=== PATIENT | male | born 1945 | race Caucasian/White ===

== ENCOUNTER → 2017-04-09 | Outpatient (CLI) | payer MEDICARE ==
[~2017-04-09] MED LIST: ASPI325T25 PO; CAR3125T PO; CHOL500021 PO; EPLE25TA PO; FERR1TAB36 PO; FERR27TA2 PO; LISI30TA36 PO; MULT1TAB65 PO; OMEP20CA74 PO; ROSU20TA14 PO; WARF3TAB20 PO
[2017-04-09 16:00] VITALS: BP 122/68
[2017-04-09 16:45] VITALS: BP 125/77
[2017-04-09 17:02] LABS: INR 2.6 (0.7-1.3); Prothrombin Time 31.5 sec (9.0-12.0)
== END | disposition home or self-care (01) ==
LOC: CHF HDHVI 16:15
PROVIDERS: ATTEND Internal Medicine Cardiovascular Disease
DX: I10 Essential (primary) hypertension (principal); R06.02 Shortness of breath; R53.83 Other fatigue
CPT/HCPCS: 85610; 93701; 94620; G0463

== ENCOUNTER → 2017-04-13 | Outpatient (CLI) | payer MEDICARE ==
[~2017-04-13] MED LIST changes: +NITROGLYCERIN 0.4 MG SL TAB SL ONE
[2017-04-13 09:30] VITALS: BP 118/78
[2017-04-13 12:21] LABS: Urine Bilirubin Negative (Negative); Urine Blood Negative /uL (Negative); Urine Color Yellow (Yellow); Urine Glucose Normal (Normal); Urine Ketone Negative (Negative); Urine Nitrite Negative (Negative); Urine Urobilinogen Normal (Negative)
[2017-04-13 12:35] LABS: Basophils # (auto) 0 uL; Basophils % (auto) 0.6 % (0.0-2.0); CONDITION Y; Eosinophils # (auto) 0.2 uL; Hematocrit 39.2 % (41.0-53.0); Hemoglobin 13.1 g/dL (13.5-17.5); Lymphocytes # (auto) 1.6 uL; Lymphocytes % (auto) 25.3 % (10.0-50.0); Mean Corpuscular Hemoglobin 30.2 pg (28.0-32.0); Mean Corpuscular Hgb Conc. 33.4 g/dL (32.0-36.0); Mean Corpuscular Volume 90.4 fL (80.0-100.0); Mean Platelet Volume 7.8 fL (7.4-10.4); Monocytes # (auto) 0.6 uL; Neutrophils # (auto) 3.9 uL; Neutrophils % (auto) 62.1 % (37.0-80.0); Platelet Count (auto) 288 10^3/uL (140-450); Red Cell Distribution Width 14.6 % (11.6-16.0); White Blood Cell 6.3 10^3/uL (4.4-10.8)
[2017-04-13 13:05] LABS: Albumin 3.3 g/dL (3.4-5.0); Alkaline Phosphatase 132 U/L (45-117); Anion Gap 8 (5-15); Aspartate Aminotransferase 27 U/L (15-37); BUN/Creatinine Ratio 16.7; Bilirubin, Direct < 0.1 mg/dL (0-0.2); Bilirubin, Total 0.2 mg/dL (0.2-1.0); Blood Urea Nitrogen 19 mg/dL (7-18); Calcium 9.4 mg/dL (8.5-10.1); Carbon Dioxide 23 mmol/L (21-32); Chloride 107 mmol/L (98-107); Cholesterol 140 mg/dL (< 200); GFR African American 82 mL/min; GFR Non-African American 67 mL/min; Glucose 97 mg/dL (74-106); HDL Cholesterol 59 mg/dL (40-59); LDL Cholesterol 59 mg/dL (< 100); Potassium 4.3 mmol/L (3.5-5.1); Sodium 138 mmol/L (136-145); Total Protein 6.5 g/dL (6.4-8.2); Triglycerides 87 mg/dL (< 150)
== END | disposition home or self-care (01) ==
LOC: LAB 08:22
PROVIDERS: ATTEND Internal Medicine Cardiovascular Disease
DX: I10 Essential (primary) hypertension (principal); E78.00 Pure hypercholesterolemia, unspecified; K74.1 Hepatic sclerosis; E11.9 Type 2 diabetes mellitus without complications; R53.81 Other malaise; E03.9 Hypothyroidism, unspecified; D64.9 Anemia, unspecified; E55.9 Vitamin D deficiency, unspecified; N39.0 Urinary tract infection, site not specified; R97.20 Elevated prostate specific antigen [PSA]
CPT/HCPCS: 36415; 80048; 80061; 80076; 81003; 82306; 83036; 84153; 84403; 84443; 85025; 86703; 86704; 86706; 86708; 86803; 86900; 86901; 87340; G0463

== ENCOUNTER → 2017-04-16 | Outpatient (CLI) | payer MEDICARE ==
[~2017-04-16] MED LIST changes: +CYANOCOBALAMIN (B-12) 1000 MCG/1 ML VIAL IM ONE; +CYANOCOBALAMIN (B-12) 1000 MCG/1 ML VIAL ONE; -NITROGLYCERIN 0.4 MG SL TAB SL ONE
[2017-04-16 08:45] VITALS: BP 108/69
[2017-04-16 12:17] LABS: INR 2.7 (0.7-1.3); Prothrombin Time 32.4 sec (9.0-12.0)
== END | disposition home or self-care (01) ==
LOC: CHF HDHVI 08:04
PROVIDERS: ATTEND Internal Medicine Cardiovascular Disease
DX: I50.9 Heart failure, unspecified (principal); I25.10 Atherosclerotic heart disease of native coronary artery without angina pectoris; Z94.1 Heart transplant status
CPT/HCPCS: 84156; 85610; G0463; J3420; 96372

== ENCOUNTER → 2017-04-24 | Outpatient (CLI) | payer MEDICARE ==
[2017-04-24 15:15] VITALS: BP 107/65
[2017-04-24 17:02] LABS: INR 2.4 (0.7-1.3); Prothrombin Time 29.3 sec (9.0-12.0)
== END | disposition home or self-care (01) ==
LOC: Rad HDHVI 13:40
PROVIDERS: ATTEND Internal Medicine Cardiovascular Disease
DX: I50.23 Acute on chronic systolic (congestive) heart failure (principal); I25.10 Atherosclerotic heart disease of native coronary artery without angina pectoris; D64.9 Anemia, unspecified; I35.0 Nonrheumatic aortic (valve) stenosis; M79.89 Other specified soft tissue disorders
CPT/HCPCS: 85610; 93971; 96372; G0463; J3420

== ENCOUNTER → 2017-05-03 | Outpatient (CLI) | payer MEDICARE ==
[~2017-05-03] VITALS: Ht 177.8 cm; Wt 86.2 kg
[2017-05-03 13:32] VITALS: BP 113/73
[2017-05-03 14:46] VITALS: BP 115/73
== END | disposition home or self-care (01) ==
LOC: Rad HDHVI 12:55
PROVIDERS: ATTEND Internal Medicine Cardiovascular Disease
DX: Z45.02 Encounter for adjustment and management of automatic implantable cardiac defibrillator (principal); I10 Essential (primary) hypertension; I25.2 Old myocardial infarction; E78.00 Pure hypercholesterolemia, unspecified; R06.02 Shortness of breath
CPT/HCPCS: 78452; 93017; 96374; A9500; J3420

== ENCOUNTER → 2017-05-11 | Outpatient (CLI) | payer MEDICARE ==
[~2017-05-11] MED LIST changes: -CYANOCOBALAMIN (B-12) 1000 MCG/1 ML VIAL IM ONE; -CYANOCOBALAMIN (B-12) 1000 MCG/1 ML VIAL ONE
[2017-05-11 16:57] LABS: INR 2.4 (0.7-1.3); Prothrombin Time 28.4 sec (9.0-12.0)
== END | disposition home or self-care (01) ==
LOC: CHF HDHVI 09:30
PROVIDERS: ATTEND Internal Medicine Cardiovascular Disease
DX: I11.0 Hypertensive heart disease with heart failure (principal); I50.9 Heart failure, unspecified; I25.10 Atherosclerotic heart disease of native coronary artery without angina pectoris; F41.9 Anxiety disorder, unspecified; Z95.1 Presence of aortocoronary bypass graft
CPT/HCPCS: 85610; G0463

== ENCOUNTER → 2017-05-15 | Outpatient (CLI) | payer MEDICARE ==
[2017-05-15 12:20] VITALS: BP 110/70
[2017-05-15 16:14] LABS: Basophils # (auto) 0 uL; Basophils % (auto) 0.6 % (0.0-2.0); CONDITION Y; Eosinophils # (auto) 0.2 uL; Hematocrit 40.7 % (41.0-53.0); Hemoglobin 13.6 g/dL (13.5-17.5); Lymphocytes # (auto) 2.2 uL; Lymphocytes % (auto) 28.4 % (10.0-50.0); Mean Corpuscular Hemoglobin 30.1 pg (28.0-32.0); Mean Corpuscular Hgb Conc. 33.4 g/dL (32.0-36.0); Mean Corpuscular Volume 90.2 fL (80.0-100.0); Mean Platelet Volume 7.8 fL (7.4-10.4); Monocytes # (auto) 0.8 uL; Monocytes % (auto) 9.7 % (0.0-12.0); Neutrophils # (auto) 4.6 uL; Neutrophils % (auto) 59.3 % (37.0-80.0); Platelet Count (auto) 311 10^3/uL (140-450); Red Cell Distribution Width 15.5 % (11.6-16.0); White Blood Cell 7.8 10^3/uL (4.4-10.8)
[2017-05-15 16:28] LABS: INR 1.9 (0.9-1.15); Partial Thromboplastin Time 36.7 sec (22.64-33.71)
[2017-05-15 16:36] LABS: Prothrombin Time 20.9 sec (9.37-12.3)
[2017-05-15 16:41] LABS: BUN/Creatinine Ratio 13.9; Calcium 9.2 mg/dL (8.5-10.1); Magnesium 2.5 mg/dL (1.6-2.6); Potassium 4.3 mmol/L (3.5-5.1)
== END | disposition home or self-care (01) ==
LOC: CHF HDHVI 10:30
PROVIDERS: ATTEND Internal Medicine Cardiovascular Disease
DX: I11.0 Hypertensive heart disease with heart failure (principal); I50.9 Heart failure, unspecified; I25.10 Atherosclerotic heart disease of native coronary artery without angina pectoris; E11.9 Type 2 diabetes mellitus without complications; E83.40 Disorders of magnesium metabolism, unspecified; D51.9 Vitamin B12 deficiency anemia, unspecified; D64.9 Anemia, unspecified; R79.1 Abnormal coagulation profile; Z95.1 Presence of aortocoronary bypass graft
CPT/HCPCS: 36415; 80048; 82607; 83036; 83735; 85025; 85610; 85730; 93701; G0463

== ENCOUNTER → 2017-06-27 | Outpatient (CLI) | payer MEDICARE ==
[2017-06-27 10:30] VITALS: BP 104/73
[2017-06-27 12:08] LABS: Potassium 4.2 mmol/L (3.5-5.1); Uric Acid 5.1 mg/dL (3.5-7.2)
[2017-06-27 12:25] LABS: Basophils # (auto) 0.1 uL; Basophils % (auto) 0.7 % (0.0-2.0); Eosinophils # (auto) 0.2 uL; Eosinophils % (auto) 2.1 % (0.0-7.0); Hematocrit 40.5 % (41.0-53.0); Hemoglobin 13.7 g/dL (13.5-17.5); Lymphocytes # (auto) 1.9 uL; Lymphocytes % (auto) 26.1 % (10.0-50.0); Mean Corpuscular Hemoglobin 30.4 pg (28.0-32.0); Mean Corpuscular Hgb Conc. 33.8 g/dL (32.0-36.0); Mean Corpuscular Volume 89.8 fL (80.0-100.0); Mean Platelet Volume 7.3 fL (6.9-10.8); Monocytes # (auto) 0.7 uL; Monocytes % (auto) 9.7 % (0.0-12.0); Neutrophils # (auto) 4.5 uL; Neutrophils % (auto) 61.4 % (37.0-80.0); Nucleated Red Blood Cells % 0.1 %; Platelet Count (auto) 261 10^3/uL (140-450); Red Cell Distribution Width 16.2 % (11.8-14.3); White Blood Cell 7.4 10^3/uL (4.4-10.8)
== END | disposition home or self-care (01) ==
LOC: CHF HDHVI 10:04
PROVIDERS: ATTEND Internal Medicine Cardiovascular Disease
DX: I50.9 Heart failure, unspecified (principal); E87.6 Hypokalemia; R94.4 Abnormal results of kidney function studies; M10.9 Gout, unspecified; D64.9 Anemia, unspecified
CPT/HCPCS: 36415; 82565; 84132; 84520; 84550; 85025; G0463

== ENCOUNTER → 2017-07-30 | Outpatient (CLI) | payer MEDICARE ==
[~2017-07-30] MED LIST changes: +AMIO200T33 PO; +FERR83TA2 PO; +IVAB1.7T PO; +LORA-655 PO
[2017-07-30 09:05] VITALS: BP 91/62
[2017-07-30 09:45] VITALS: BP 108/65
[2017-07-30 12:55] LABS: Basophils # (auto) 0 uL; Basophils % (auto) 0.6 % (0.0-2.0); Eosinophils # (auto) 0.2 uL; Eosinophils % (auto) 2.9 % (0.0-7.0); Hematocrit 40.7 % (41.0-53.0); Hemoglobin 13.6 g/dL (13.5-17.5); Lymphocytes # (auto) 1.3 uL; Lymphocytes % (auto) 16.2 % (10.0-50.0); Mean Corpuscular Hemoglobin 30.4 pg (28.0-32.0); Mean Corpuscular Hgb Conc. 33.3 g/dL (32.0-36.0); Mean Corpuscular Volume 91.3 fL (80.0-100.0); Monocytes # (auto) 0.7 uL; Monocytes % (auto) 8.5 % (0.0-12.0); Neutrophils # (auto) 5.6 uL; Neutrophils % (auto) 71.8 % (37.0-80.0); Nucleated Red Blood Cells % 0.2 %; Platelet Count (auto) 310 10^3/uL (140-450); Red Cell Distribution Width 17.3 % (11.8-14.3); White Blood Cell 7.7 10^3/uL (4.4-10.8)
[2017-07-30 12:59] LABS: BUN/Creatinine Ratio 15.6; Potassium 4.2 mmol/L (3.5-5.1)
[2017-07-30 14:05] LABS: INR 1.39 (0.9-1.15); Partial Thromboplastin Time 33.2 sec (22.64-33.71); Prothrombin Time 15.2 sec (9.37-12.3)
== END | disposition home or self-care (01) ==
LOC: Rad HDHVI 09:11
PROVIDERS: ATTEND Internal Medicine Cardiovascular Disease
DX: Z01.812 Encounter for preprocedural laboratory examination (principal); I11.0 Hypertensive heart disease with heart failure; I50.9 Heart failure, unspecified; I21.9 Acute myocardial infarction, unspecified; E78.00 Pure hypercholesterolemia, unspecified; D64.9 Anemia, unspecified; R79.1 Abnormal coagulation profile; Z95.1 Presence of aortocoronary bypass graft
CPT/HCPCS: 36415; 71020; 80048; 85025; 85610; 85730; 93005; G0463

== ENCOUNTER 2017-08-02 08:01 | Inpatient (IN) | payer MEDICARE ==
[~2017-08-02] VITALS: Ht 177.8 cm; Wt 89.6 kg
[~2017-08-02 08:01] MED LIST changes: -AMIO200T33 PO; -FERR83TA2 PO; -IVAB1.7T PO; -LORA-655 PO
[2017-08-02] MEDS ORDERED: AMIO200T33 PO (08:19)
[2017-08-02] MEDS ORDERED: FERR83TA2 PO (08:19)
[2017-08-02] MEDS ORDERED: LORA-655 PO (08:19)
[2017-08-02] MEDS ORDERED: IVAB1.7T PO (08:19)
[2017-08-02] MEDS ORDERED: IOHEXOL 350 MG/ML 100ML IJ ONE (08:36)
[2017-08-02] MEDS ORDERED: LIDOCAINE 2%HCL (LOCAL ANESTH.) INJ 20ML MDV ONE (08:36)
[2017-08-02] MEDS ORDERED: MIDAZOLAM HCL 1MG/1ML-2 ML VIAL ONE (08:58)
[2017-08-02] MEDS ORDERED: fentaNYL CITRATE 100 MCG/2 ML VL ONE (08:58)
[2017-08-02] MEDS ORDERED: SODIUM CHL 0.9% 50 ML ONE (09:16)
[2017-08-02] MEDS ORDERED: ANGIOMAX 250 MG VIAL IV ONE (09:16)
[2017-08-02] MEDS ORDERED: EPTIFIBATIDE INJ (2MG/ML) 10ML VIAL IV ONE (09:17)
[2017-08-02] MEDS ORDERED: ASPirin 325 MG TAB ONE (10:42)
[2017-08-02] MEDS ORDERED: PRASUGREL HCL 10 MG TAB ONE (10:42)
[2017-08-02] MEDS ORDERED: SODIUM CHLORIDE 0.9% 1,000 ML IV SCH (11:10)
[2017-08-02] MEDS ORDERED: NITROGLYCERIN 0.4 MG SL TAB SL PRN (11:15)
[2017-08-02] MEDS ORDERED: MORPHINE SULFATE 10 MG/ML INJ 1ML SDV IV PRN (11:15)
[2017-08-02] MEDS ORDERED: HYDROcodone-ACET 5/325MG TAB PO PRN (11:15)
[2017-08-02] MEDS ORDERED: ASPirin-EC 325mg tab PO ONE (11:15)
[2017-08-02] MEDS ORDERED: PRASUGREL HCL 10 MG TAB PO ONE (11:15)
[2017-08-02] MEDS ORDERED: ACETAMINOPHEN 500 MG TAB PO PRN (11:15)
[2017-08-02] MEDS ORDERED: MULTIPLE VITAMINS W/ MINERALS TAB PO ONE (11:45)
[2017-08-02] MEDS ORDERED: AMIODARONE HCL 200 MG TAB PO ONE (11:45)
[2017-08-02] MEDS ORDERED: LORazepam 0.5 MG TAB PO ONE (11:45)
[2017-08-02 12:50] VITALS: BP 117/72
[2017-08-02] MEDS ORDERED: INFLUENZA QUAD 2017-2018 0.5 ML SYRG IM ONE (14:15)
[2017-08-02] MEDS: FERROUS SULFATE 325 MG TAB PO SCH ×2 (17:14→22:01)
[2017-08-02 17:15] VITALS: BP 117/74
[2017-08-02 20:00] VITALS: BP 119/69
[2017-08-02] MEDS ORDERED: ATORVASTATIN 20 MG TAB PO SCH (22:00)
[2017-08-02] MEDS: [UNRECOGNIZED DRUG - OTHER] PO SCH (22:00)
[2017-08-02 22:25] VITALS: BP 119/69
[2017-08-03 05:20] VITALS: BP 120/76
[2017-08-03 08:47] VITALS: BP 90/50
[2017-08-03] MEDS: FERROUS SULFATE 325 MG TAB PO SCH (09:55)
[2017-08-03] MEDS: [UNRECOGNIZED DRUG - OTHER] PO SCH (09:56)
[2017-08-03] MEDS ORDERED: PRASUGREL HCL 10 MG TAB PO SCH (10:00)
[2017-08-03] MEDS ORDERED: OMEPRAZOLE 20MG/10ML ORAL SUSP PO SCH (10:00)
[2017-08-03] MEDS ORDERED: MULTIPLE VITAMINS W/ MINERALS TAB PO SCH (10:00)
[2017-08-03] MEDS ORDERED: AMIODARONE HCL 200 MG TAB PO SCH (10:00)
[2017-08-03] MEDS ORDERED: LORazepam 0.5 MG TAB PO SCH (10:00)
== END 2017-08-03 10:38 | disposition home or self-care (01) | DRG 247 ==
LOC: CATH 08:01 → TELE-E-ADS 08:02 → TELE-WESTW 14:44
PROVIDERS: ADMIT Internal Medicine Cardiovascular Disease; ATTEND Internal Medicine Cardiovascular Disease
PROC: 027135Z Dilation of Coronary Artery, Two Arteries with Two Drug-eluting Intraluminal Devices, Percutaneous Approach (ICD-10-PCS; principal; 2017-08-02)
PROC: 4A023N7 Measurement of Cardiac Sampling and Pressure, Left Heart, Percutaneous Approach (ICD-10-PCS; 2017-08-02)
PROC: B2121ZZ Fluoroscopy of Single Coronary Artery Bypass Graft using Low Osmolar Contrast (ICD-10-PCS; 2017-08-02)
PROC: B2181ZZ Fluoroscopy of Left Internal Mammary Bypass Graft using Low Osmolar Contrast (ICD-10-PCS; 2017-08-02)
PROC: B2111ZZ Fluoroscopy of Multiple Coronary Arteries using Low Osmolar Contrast (ICD-10-PCS; 2017-08-02)
PROC: B2151ZZ Fluoroscopy of Left Heart using Low Osmolar Contrast (ICD-10-PCS; 2017-08-02)
PROC: B3121ZZ Fluoroscopy of Left Subclavian Artery using Low Osmolar Contrast (ICD-10-PCS; 2017-08-02)
PROC: B41C1ZZ Fluoroscopy of Pelvic Arteries using Low Osmolar Contrast (ICD-10-PCS; 2017-08-02)
DX: I25.10 Atherosclerotic heart disease of native coronary artery without angina pectoris (principal); I25.5 Ischemic cardiomyopathy; Z95.1 Presence of aortocoronary bypass graft; Z95.810 Presence of automatic (implantable) cardiac defibrillator; Z95.5 Presence of coronary angioplasty implant and graft; Z23 Encounter for immunization
CPT/HCPCS: 36225; 36415; 71020; 75736; 80048; 85025; 85610; 85730; 92928; 93005; 93458; 99152; 99153; C1874; G0463; J2250

== ENCOUNTER → 2017-08-27 | Outpatient (CLI) | payer MEDICARE ==
[~2017-08-27] MED LIST changes: +AMIO200T33 PO; -CAR3125T PO; -CHOL500021 PO; +CYANOCOBALAMIN (B-12) 1000 MCG/1 ML VIAL IM ONE; +CYANOCOBALAMIN (B-12) 1000 MCG/1 ML VIAL ONE; +CYANOCOBALAMIN (B-12) 1000 MCG/1 ML VIAL SUBCUT ONE; -FERR1TAB36 PO; -FERR27TA2 PO; +FERR83TA2 PO; +IVAB1.7T PO; -LISI30TA36 PO; +LORA-655 PO; +TESTOSTERONE CYPIONATE 200 MG/ML 1ML VIAL IM ONE
[2017-08-27 08:45] VITALS: BP 103/68
[2017-08-27 10:50] VITALS: BP 118/76
[2017-08-27 12:37] LABS: Basophils # (auto) 0 uL; Basophils % (auto) 0.7 % (0.0-2.0); Eosinophils # (auto) 0.2 uL; Eosinophils % (auto) 3.5 % (0.0-7.0); Hematocrit 39.7 % (41.0-53.0); Hemoglobin 13.2 g/dL (13.5-17.5); Lymphocytes # (auto) 1.5 uL; Lymphocytes % (auto) 22.9 % (10.0-50.0); Mean Corpuscular Hemoglobin 30.3 pg (28.0-32.0); Mean Corpuscular Hgb Conc. 33.3 g/dL (32.0-36.0); Mean Corpuscular Volume 91.1 fL (80.0-100.0); Mean Platelet Volume 6.9 fL (6.9-10.8); Monocytes # (auto) 0.7 uL; Monocytes % (auto) 11.1 % (0.0-12.0); Neutrophils # (auto) 4.1 uL; Neutrophils % (auto) 61.8 % (37.0-80.0); Nucleated Red Blood Cells % 0.1 %; Platelet Count (auto) 235 10^3/uL (140-450); Red Cell Distribution Width 17.1 % (11.8-14.3); White Blood Cell 6.7 10^3/uL (4.4-10.8)
[2017-08-27 13:16] LABS: B-Type Natriuretic Peptide 148.5 pg/mL (0-100)
[2017-08-27 13:55] LABS: Temperature: 21.4 C (20.0-25.0)
[2017-08-27 14:42] LABS: Albumin 3.2 g/dL (3.4-5.0); BUN/Creatinine Ratio 17.9; Bilirubin, Total 0.2 mg/dL (0.2-1.0); Calcium 8.5 mg/dL (8.5-10.1); Potassium 4.2 mmol/L (3.5-5.1); Total Protein 7.3 g/dL (6.4-8.2)
== END | disposition home or self-care (01) ==
LOC: CHF HDHVI 08:39
PROVIDERS: ATTEND Internal Medicine Cardiovascular Disease
DX: I11.0 Hypertensive heart disease with heart failure (principal); I50.9 Heart failure, unspecified; R06.02 Shortness of breath; D51.9 Vitamin B12 deficiency anemia, unspecified; D64.9 Anemia, unspecified; E55.9 Vitamin D deficiency, unspecified
CPT/HCPCS: 36415; 80053; 82306; 82607; 83880; 85025; 93701; 94620; G0463; J1071; J3420

== ENCOUNTER → 2017-09-04 | Outpatient (CLI) | payer MEDICARE ==
[~2017-09-04] MED LIST changes: -CYANOCOBALAMIN (B-12) 1000 MCG/1 ML VIAL IM ONE; -CYANOCOBALAMIN (B-12) 1000 MCG/1 ML VIAL ONE; -CYANOCOBALAMIN (B-12) 1000 MCG/1 ML VIAL SUBCUT ONE
[2017-09-04 09:40] VITALS: BP 97/62
[2017-09-04 10:00] VITALS: BP 110/63
[2017-09-04 14:41] LABS: INR 2.1 (0.7-1.3); Prothrombin Time 25.5 sec (9.0-12.0)
== END | disposition home or self-care (01) ==
LOC: CHF HDHVI 09:35
PROVIDERS: ATTEND Internal Medicine Cardiovascular Disease
DX: I11.0 Hypertensive heart disease with heart failure (principal); I50.9 Heart failure, unspecified; I48.91 Unspecified atrial fibrillation; Z79.01 Long term (current) use of anticoagulants
CPT/HCPCS: 85610; 96372; G0463; J1071

== ENCOUNTER → 2017-09-19 | Outpatient (CLI) | payer MEDICARE ==
[~2017-09-19] MED LIST changes: +CYANOCOBALAMIN (B-12) 1000 MCG/1 ML VIAL IM ONE; +CYANOCOBALAMIN (B-12) 1000 MCG/1 ML VIAL ONE
[2017-09-19 12:00] VITALS: BP 125/83
[2017-09-19 12:18] LABS: INR 3.5 (0.7-1.3); Prothrombin Time 41.9 sec (9.0-12.0)
== END | disposition home or self-care (01) ==
LOC: CHF HDHVI 11:20
PROVIDERS: ATTEND Internal Medicine Cardiovascular Disease
DX: I50.9 Heart failure, unspecified (principal); I25.10 Atherosclerotic heart disease of native coronary artery without angina pectoris; E29.1 Testicular hypofunction; R53.83 Other fatigue; R53.81 Other malaise
CPT/HCPCS: 85610; 96372; G0463; J1071; J3420

== ENCOUNTER → 2017-09-26 | Outpatient (CLI) | payer MEDICARE ==
[~2017-09-26] MED LIST changes: -CYANOCOBALAMIN (B-12) 1000 MCG/1 ML VIAL IM ONE; +CYANOCOBALAMIN (B-12) 1000 MCG/1 ML VIAL SUBCUT ONE
[2017-09-26 10:50] VITALS: BP 112/70
[2017-09-26 12:40] VITALS: BP 103/67
[2017-09-26 14:51] LABS: INR 2.8 (0.7-1.3); Prothrombin Time 33.6 sec (9.0-12.0)
== END | disposition home or self-care (01) ==
LOC: CHF HDHVI 10:57
PROVIDERS: ATTEND Internal Medicine Cardiovascular Disease
DX: I50.9 Heart failure, unspecified (principal); E29.1 Testicular hypofunction; R53.83 Other fatigue
CPT/HCPCS: 85610; 93701; 96372; G0463; J1071; J3420

== ENCOUNTER → 2017-10-10 | Outpatient (CLI) | payer MEDICARE ==
[~2017-10-10] VITALS: Ht 30.5 cm; Wt 0.5 kg
[~2017-10-10] MED LIST changes: -CYANOCOBALAMIN (B-12) 1000 MCG/1 ML VIAL ONE; -CYANOCOBALAMIN (B-12) 1000 MCG/1 ML VIAL SUBCUT ONE; +MULT-569 PO; +PRAS10TA8 PO; +ROSU10TA16 PO; +SACU1TAB PO; +TADA5TAB11 PO; +WARF3TAB22 PO
[2017-10-10 11:00] VITALS: BP 94/56
[2017-10-10 12:00] VITALS: BP 109/65
[2017-10-10 16:43] LABS: Basophils # (auto) 0 uL; Basophils % (auto) 0.7 % (0.0-2.0); Eosinophils # (auto) 0.1 uL; Eosinophils % (auto) 1.6 % (0.0-7.0); Hemoglobin 14.7 g/dL (13.5-17.5); Lymphocytes # (auto) 1.1 uL; Lymphocytes % (auto) 16.6 % (10.0-50.0); Mean Corpuscular Hemoglobin 32.2 pg (28.0-32.0); Mean Corpuscular Hgb Conc. 33.3 g/dL (32.0-36.0); Mean Corpuscular Volume 96.8 fL (80.0-100.0); Monocytes # (auto) 0.9 uL; Monocytes % (auto) 12.7 % (0.0-12.0); Neutrophils # (auto) 4.6 uL; Neutrophils % (auto) 68.4 % (37.0-80.0); Nucleated Red Blood Cells % 0.5 %; Platelet Count (auto) 243 10^3/uL (140-450); Red Blood Cells 4.55 10^6/uL (4.5-5.90); Red Cell Distribution Width 18.5 % (11.8-14.3); White Blood Cell 6.8 10^3/uL (4.4-10.8)
[2017-10-10 16:52] LABS: Albumin 3.4 g/dL (3.4-5.0); BUN/Creatinine Ratio 10.1; Bilirubin, Total 0.3 mg/dL (0.2-1.0); Calcium 8.5 mg/dL (8.5-10.1); Magnesium 2.5 mg/dL (1.6-2.6); Potassium 4.2 mmol/L (3.5-5.1); Total Protein 6.5 g/dL (6.4-8.2)
== END | disposition home or self-care (01) ==
LOC: CHF HDHVI 11:13
PROVIDERS: ATTEND Internal Medicine Cardiovascular Disease
DX: E83.42 Hypomagnesemia (principal); I10 Essential (primary) hypertension; R53.81 Other malaise; D64.9 Anemia, unspecified
CPT/HCPCS: 36415; 80053; 83735; 84403; 85025; 96372; G0463; J1071

== ENCOUNTER → 2017-10-15 | Outpatient (CLI) | payer MEDICARE ==
[~2017-10-15] MED LIST changes: -TESTOSTERONE CYPIONATE 200 MG/ML 1ML VIAL IM ONE
[2017-10-15 12:55] VITALS: BP 119/80
== END | disposition home or self-care (01) ==
LOC: CHF HDHVI 11:55
PROVIDERS: ATTEND Internal Medicine Cardiovascular Disease
DX: I25.10 Atherosclerotic heart disease of native coronary artery without angina pectoris (principal); I50.9 Heart failure, unspecified
CPT/HCPCS: 85610; G0463

== ENCOUNTER → 2017-10-24 | Outpatient (CLI) | payer MEDICARE ==
[~2017-10-24] MED LIST changes: +TESTOSTERONE CYPIONATE 200 MG/ML 1ML VIAL IM ONE
[2017-10-24 14:00] VITALS: BP 100/64
[2017-10-24 15:30] VITALS: BP 97/64
[2017-10-24 17:02] LABS: Free T4 (Free Thyroxine) 0.76 ng/dL (0.89-1.76); Prostate Specific Antigen 2.02 ng/mL (0.0-4.0)
== END | disposition home or self-care (01) ==
LOC: CHF HDHVI 13:41
PROVIDERS: ATTEND Internal Medicine Cardiovascular Disease
DX: I50.9 Heart failure, unspecified (principal); N40.0 Benign prostatic hyperplasia without lower urinary tract symptoms; I27.21 Secondary pulmonary arterial hypertension; E29.1 Testicular hypofunction
CPT/HCPCS: 36415; 84153; 84439; 84443; 93701; 96372; G0463; J1071

== ENCOUNTER → 2017-10-31 | Outpatient (CLI) | payer MEDICARE ==
[~2017-10-31] MED LIST changes: +CYANOCOBALAMIN (B-12) 1000 MCG/1 ML VIAL IM ONE; +CYANOCOBALAMIN (B-12) 1000 MCG/1 ML VIAL ONE; -TESTOSTERONE CYPIONATE 200 MG/ML 1ML VIAL IM ONE
[2017-10-31 14:35] VITALS: BP 108/62
[2017-10-31 15:15] VITALS: BP 105/66
== END | disposition home or self-care (01) ==
LOC: CHF HDHVI 14:41
PROVIDERS: ATTEND Internal Medicine Cardiovascular Disease
DX: I50.9 Heart failure, unspecified (principal); I25.10 Atherosclerotic heart disease of native coronary artery without angina pectoris; I27.21 Secondary pulmonary arterial hypertension; R53.83 Other fatigue
CPT/HCPCS: 85610; 96372; G0463; J3420

== ENCOUNTER → 2017-11-14 | Outpatient (CLI) | payer MEDICARE ==
[~2017-11-14] MED LIST changes: -CYANOCOBALAMIN (B-12) 1000 MCG/1 ML VIAL IM ONE; -CYANOCOBALAMIN (B-12) 1000 MCG/1 ML VIAL ONE; +TESTOSTERONE CYPIONATE 200 MG/ML 1ML VIAL IM ONE
[2017-11-14 14:55] VITALS: BP 95/58
[2017-11-14 15:00] VITALS: BP 112/67
== END | disposition home or self-care (01) ==
LOC: CHF HDHVI 14:30
PROVIDERS: ATTEND Internal Medicine Cardiovascular Disease
DX: I50.9 Heart failure, unspecified (principal); E29.1 Testicular hypofunction; Z79.01 Long term (current) use of anticoagulants
CPT/HCPCS: 85610; 96372; G0463; J1071

== ENCOUNTER → 2017-11-21 | Outpatient (CLI) | payer MEDICARE ==
[~2017-11-21] MED LIST changes: -TESTOSTERONE CYPIONATE 200 MG/ML 1ML VIAL IM ONE
[2017-11-21 12:00] VITALS: BP 111/70
[2017-11-21 12:30] VITALS: BP 107/72
[2017-11-21 16:56] LABS: Calcium 8.8 mg/dL (8.5-10.1); Potassium 4.9 mmol/L (3.5-5.1)
[2017-11-21 17:02] LABS: Basophils # (auto) 0.1 uL; Basophils % (auto) 0.8 % (0.0-2.0); Eosinophils # (auto) 0.1 uL; Eosinophils % (auto) 1.2 % (0.0-7.0); Hematocrit 46.2 % (41.0-53.0); Hemoglobin 15.2 g/dL (13.5-17.5); Lymphocytes # (auto) 1.2 uL; Mean Corpuscular Hemoglobin 31.6 pg (28.0-32.0); Mean Corpuscular Volume 95.8 fL (80.0-100.0); Monocytes # (auto) 0.9 uL; Monocytes % (auto) 12.2 % (0.0-12.0); Neutrophils # (auto) 4.9 uL; Neutrophils % (auto) 68.8 % (37.0-80.0); Nucleated Red Blood Cells % 0.5 %; Platelet Count (auto) 274 10^3/uL (140-450); Red Blood Cells 4.83 10^6/uL (4.5-5.90); Red Cell Distribution Width 16.4 % (11.8-14.3); White Blood Cell 7.1 10^3/uL (4.4-10.8)
[2017-11-21 17:06] LABS: Free T4 (Free Thyroxine) 0.9 ng/dL (0.89-1.76); T3 Total 0.81 ng/mL (0.60-1.81)
== END | disposition home or self-care (01) ==
LOC: CHF HDHVI 12:03
PROVIDERS: ATTEND Internal Medicine Cardiovascular Disease
DX: I48.91 Unspecified atrial fibrillation (principal); D64.9 Anemia, unspecified; I10 Essential (primary) hypertension; E03.9 Hypothyroidism, unspecified
CPT/HCPCS: 36415; 80048; 84439; 84443; 84480; 85025; 85610; G0463

== ENCOUNTER 2017-11-28 08:25 | Inpatient (IN) | payer MEDICARE ==
[~2017-11-28] VITALS: Ht 175.3 cm; Wt 89.5 kg
[~2017-11-28 08:25] MED LIST changes: -MULT-569 PO; -PRAS10TA8 PO; -ROSU10TA16 PO; -SACU1TAB PO; -TADA5TAB11 PO; -WARF3TAB22 PO
[2017-11-28 09:53] LABS: Urine Bacteria NONE SEEN /hpf (None Seen); Urine Blood Negative /uL (Negative); Urine Specific Gravity 1.008 (1.001-1.035); Urine WBC 1 /hpf (0 - 3)
[2017-11-28 10:21] LABS: Basophils # (auto) 0 uL; Basophils % (auto) 0.4 % (0.0-2.0); Eosinophils # (auto) 0.1 uL; Eosinophils % (auto) 0.8 % (0.0-7.0); Hematocrit 47.3 % (41.0-53.0); Hemoglobin 15.5 g/dL (13.5-17.5); Lymphocytes # (auto) 1.3 uL; Lymphocytes % (auto) 15.3 % (10.0-50.0); Mean Corpuscular Hgb Conc. 32.8 g/dL (32.0-36.0); Mean Corpuscular Volume 94.6 fL (80.0-100.0); Monocytes % (auto) 12.4 % (0.0-12.0); Neutrophils # (auto) 5.9 uL; Neutrophils % (auto) 71.1 % (37.0-80.0); Platelet Count (auto) 262 10^3/uL (140-450); Red Cell Distribution Width 16.3 % (11.8-14.3); White Blood Cell 8.4 10^3/uL (4.4-10.8)
[2017-11-28 10:38] LABS: Alanine Aminotransferase 29 U/L (16-61); Albumin 3.6 g/dL (3.4-5.0); Anion Gap 4 (5-15); Aspartate Aminotransferase 21 U/L (15-37); BUN/Creatinine Ratio 12.9; Blood Urea Nitrogen 15 mg/dL (7-18); Calcium 8.4 mg/dL (8.5-10.1); Carbon Dioxide 27 mmol/L (21-32); Chloride 105 mmol/L (98-107); GFR African American 80 mL/min; GFR Non-African American 66 mL/min; Glucose 91 mg/dL (74-106); Potassium 4.2 mmol/L (3.5-5.1); Sodium 136 mmol/L (136-145)
[2017-11-28 10:42] LABS: Alkaline Phosphatase 173 U/L (45-117); Bilirubin, Total 0.4 mg/dL (0.2-1.0); Total Protein 6.9 g/dL (6.4-8.2)
[2017-11-28] MEDS ORDERED: HYDROcodone-ACET 10/325MG TAB PO PRN (17:15)
[2017-11-28] MEDS ORDERED: LORazepam 0.5 MG TAB PO PRN (18:00)
[2017-11-28 19:48] LABS: INR 2.13 (0.9-1.15); Prothrombin Time 23.4 sec (9.37-12.3)
[2017-11-28] MEDS: FERROUS SULFATE 325 MG TAB PO SCH (21:27)
[2017-11-28] MEDS: AMIODARONE HCL 200 MG TAB PO SCH (21:28)
[2017-11-28] MEDS: WARFARIN SODIUM 1 MG TAB PO SCH (21:28)
[2017-11-28 22:00] VITALS: BP 119/75
[2017-11-28 23:03] VITALS: BP 134/69
[2017-11-29] MEDS ORDERED: PRAS10TA8 PO (00:31)
[2017-11-29] MEDS ORDERED: WARF3TAB22 PO (00:31)
[2017-11-29] MEDS ORDERED: TADA5TAB11 PO (00:31)
[2017-11-29] MEDS ORDERED: SACU1TAB PO ×2 (00:31→10:52)
[2017-11-29] MEDS ORDERED: MULT-569 PO (00:31)
[2017-11-29 05:00] VITALS: BP 92/57
[2017-11-29 06:08] LABS: INR 2.22 (0.9-1.15); Partial Thromboplastin Time 40.7 sec (22.64-33.71); Prothrombin Time 24.4 sec (9.37-12.3)
[2017-11-29 08:39] VITALS: BP 118/62
[2017-11-29 08:56] VITALS: BP 119/66
[2017-11-29] MEDS ORDERED: ASPirin 81 mg TAB PO SCH (10:00)
[2017-11-29] MEDS ORDERED: ENOXAPARIN SOD 30 MG/0.3 ML SYRINGE SC SCH (10:00)
[2017-11-29] MEDS ORDERED: OMEPRAZOLE 20MG/10ML ORAL SUSP PO SCH (10:00)
[2017-11-29] MEDS: PRASUGREL HCL 10 MG TAB PO SCH (10:40)
[2017-11-29] MEDS: FERROUS SULFATE 325 MG TAB PO SCH ×2 (10:40→22:11)
[2017-11-29] MEDS: MULTIPLE VITAMIN TAB PO SCH (10:40)
[2017-11-29] MEDS ORDERED: EPLE25TA PO (10:52)
[2017-11-29] MEDS ORDERED: ROSU10TA16 PO (10:52)
[2017-11-29 11:29] VITALS: BP 112/71
[2017-11-29] MEDS: WARFARIN SODIUM 1 MG TAB PO SCH (16:59)
[2017-11-29 17:12] VITALS: BP 139/80
[2017-11-29 21:52] VITALS: BP 98/51
[2017-11-29] MEDS: AMIODARONE HCL 200 MG TAB PO SCH (22:12)
[2017-11-30 05:12] LABS: Basophils # (auto) 0.1 uL; Basophils % (auto) 0.7 % (0.0-2.0); Eosinophils # (auto) 0.1 uL; Eosinophils % (auto) 1.5 % (0.0-7.0); Hematocrit 46.4 % (41.0-53.0); Hemoglobin 15.3 g/dL (13.5-17.5); Lymphocytes # (auto) 0.9 uL; Lymphocytes % (auto) 9.8 % (10.0-50.0); Mean Corpuscular Hemoglobin 31.3 pg (28.0-32.0); Mean Corpuscular Volume 94.8 fL (80.0-100.0); Monocytes % (auto) 11.2 % (0.0-12.0); Neutrophils # (auto) 6.8 uL; Neutrophils % (auto) 76.8 % (37.0-80.0); Nucleated Red Blood Cells % 0.1 %; Platelet Count (auto) 234 10^3/uL (140-450); Red Blood Cells 4.89 10^6/uL (4.5-5.90); Red Cell Distribution Width 16.4 % (11.8-14.3); White Blood Cell 8.8 10^3/uL (4.4-10.8)
[2017-11-30 05:25] LABS: INR 2.11 (0.9-1.15); Partial Thromboplastin Time 39.4 sec (22.64-33.71); Prothrombin Time 23.2 sec (9.37-12.3)
[2017-11-30 05:42] VITALS: BP 94/40
[2017-11-30 09:00] VITALS: BP 105/75
[2017-11-30] MEDS ORDERED: ASPirin 325 MG TAB PO ONE (10:15)
[2017-11-30] MEDS: FERROUS SULFATE 325 MG TAB PO SCH (10:18)
[2017-11-30] MEDS: PRASUGREL HCL 10 MG TAB PO SCH (10:18)
[2017-11-30] MEDS: MULTIPLE VITAMIN TAB PO SCH (10:18)
[2017-11-30 12:00] VITALS: BP 102/65
[2017-11-30 15:00] VITALS: BP 108/60
[2017-11-30 16:32] VITALS: BP 108/60
[2017-11-30 17:19] VITALS: BP 108/60
[2017-12-01] MEDS ORDERED: ASPirin 325 MG TAB PO SCH (10:00)
== END 2017-11-30 17:19 | disposition home or self-care (01) | DRG 536 ==
LOC: EDBD 08:25 → ER 08:25 → OVERFLOW 08:26 → WEST WING 19:38
PROVIDERS: ADMIT Internal Medicine Cardiovascular Disease; ATTEND Internal Medicine Cardiovascular Disease
DX: S32.591A Other specified fracture of right pubis, initial encounter for closed fracture (principal); I11.0 Hypertensive heart disease with heart failure; I50.22 Chronic systolic (congestive) heart failure; I25.10 Atherosclerotic heart disease of native coronary artery without angina pectoris; K21.9 Gastro-esophageal reflux disease without esophagitis; M16.0 Bilateral primary osteoarthritis of hip; I25.5 Ischemic cardiomyopathy; M47.817 Spondylosis without myelopathy or radiculopathy, lumbosacral region; M47.816 Spondylosis without myelopathy or radiculopathy, lumbar region; F41.9 Anxiety disorder, unspecified; W18.39XA Other fall on same level, initial encounter; Z82.49 Family history of ischemic heart disease and other diseases of the circulatory system; Z86.73 Personal history of transient ischemic attack (TIA), and cerebral infarction without residual deficits; Z95.1 Presence of aortocoronary bypass graft; Y93.89 Activity, other specified; Y92.89 Other specified places as the place of occurrence of the external cause; Y99.8 Other external cause status; Z79.899 Other long term (current) drug therapy; Z79.01 Long term (current) use of anticoagulants; Z95.5 Presence of coronary angioplasty implant and graft; Z95.810 Presence of automatic (implantable) cardiac defibrillator
CPT/HCPCS: 36415; 71046; 72192; 80053; 81001; 84484; 85025; 85610; 85730; 93005

== ENCOUNTER → 2018-01-22 | Outpatient (CLI) | payer MEDICARE ==
[~2018-01-22] MED LIST changes: +CYANOCOBALAMIN (B-12) 1000 MCG/1 ML VIAL IM ONE; +CYANOCOBALAMIN (B-12) 1000 MCG/1 ML VIAL ONE; +MAGNESIUM CITRATE SOLUTION 300 ML BTL ONE; +MAGNESIUM CITRATE SOLUTION 300 ML BTL PO ONE; +MULT-569 PO; +PRAS10TA8 PO; +ROSU10TA16 PO; +SACU1TAB PO; +TADA5TAB11 PO; +TESTOSTERONE CYPIONATE 200 MG/ML 1ML VIAL IM ONE; +WARF3TAB22 PO
[2018-01-22 09:00] VITALS: BP_SYST 108; BP_SYST 112; BP_DIAS 70
[2018-01-22 12:12] LABS: Basophils # (auto) 0 uL; Basophils % (auto) 0.8 % (0.0-2.0); Eosinophils # (auto) 0.1 uL; Eosinophils % (auto) 1.2 % (0.0-7.0); Hematocrit 42.8 % (41.0-53.0); Hemoglobin 14.3 g/dL (13.5-17.5); Lymphocytes # (auto) 1.3 uL; Lymphocytes % (auto) 20.5 % (10.0-50.0); Mean Corpuscular Hemoglobin 30.6 pg (28.0-32.0); Mean Corpuscular Hgb Conc. 33.3 g/dL (32.0-36.0); Mean Corpuscular Volume 91.8 fL (80.0-100.0); Monocytes # (auto) 0.9 uL; Monocytes % (auto) 14.1 % (0.0-12.0); Neutrophils % (auto) 63.4 % (37.0-80.0); Nucleated Red Blood Cells % 0.6 %; Platelet Count (auto) 322 10^3/uL (140-450); Red Blood Cells 4.67 10^6/uL (4.5-5.90); Red Cell Distribution Width 15.2 % (11.8-14.3); White Blood Cell 6.3 10^3/uL (4.4-10.8)
[2018-01-22 12:23] LABS: BUN/Creatinine Ratio 13.5; Calcium 9.3 mg/dL (8.5-10.1); Magnesium 2.3 mg/dL (1.6-2.6); Potassium 4.6 mmol/L (3.5-5.1)
[2018-01-22 12:32] LABS: Free T4 (Free Thyroxine) 1.08 ng/dL (0.89-1.76); Prostate Specific Antigen 1.34 ng/mL (0.0-4.0)
== END | disposition home or self-care (01) ==
LOC: CHF HDHVI 08:08
PROVIDERS: ATTEND Internal Medicine Cardiovascular Disease
DX: E29.1 Testicular hypofunction (principal); I11.0 Hypertensive heart disease with heart failure; I50.23 Acute on chronic systolic (congestive) heart failure; C61 Malignant neoplasm of prostate; E03.9 Hypothyroidism, unspecified; I25.10 Atherosclerotic heart disease of native coronary artery without angina pectoris; D64.9 Anemia, unspecified; K21.9 Gastro-esophageal reflux disease without esophagitis; Z79.01 Long term (current) use of anticoagulants
CPT/HCPCS: 36415; 80048; 83735; 84153; 84403; 84439; 84443; 85025; 93701; 96372; G0463; J1071

== ENCOUNTER → 2018-01-30 | Outpatient (CLI) | payer MEDICARE ==
[~2018-01-30] MED LIST changes: -CYANOCOBALAMIN (B-12) 1000 MCG/1 ML VIAL IM ONE; -CYANOCOBALAMIN (B-12) 1000 MCG/1 ML VIAL ONE; -MAGNESIUM CITRATE SOLUTION 300 ML BTL ONE; -MAGNESIUM CITRATE SOLUTION 300 ML BTL PO ONE
[2018-01-30 14:45] VITALS: BP 107/67
== END | disposition home or self-care (01) ==
LOC: CHF HDHVI 14:20
PROVIDERS: ATTEND Internal Medicine Cardiovascular Disease
DX: E29.1 Testicular hypofunction (principal); I42.9 Cardiomyopathy, unspecified; I25.10 Atherosclerotic heart disease of native coronary artery without angina pectoris; I11.0 Hypertensive heart disease with heart failure; I50.23 Acute on chronic systolic (congestive) heart failure; E03.9 Hypothyroidism, unspecified; Z95.810 Presence of automatic (implantable) cardiac defibrillator; Z79.01 Long term (current) use of anticoagulants
CPT/HCPCS: 85610; 96372; G0463; J1071

== ENCOUNTER → 2018-02-06 | Outpatient (CLI) | payer MEDICARE ==
[2018-02-06 11:40] VITALS: BP 111/61
[2018-02-06 12:30] VITALS: BP 113/70
[2018-02-06 16:01] LABS: Basophils # (auto) 0 uL; Basophils % (auto) 0.5 % (0.0-2.0); Eosinophils # (auto) 0.2 uL; Eosinophils % (auto) 1.9 % (0.0-7.0); Hematocrit 36.9 % (41.0-53.0); Hemoglobin 12.6 g/dL (13.5-17.5); Lymphocytes # (auto) 1.3 uL; Lymphocytes % (auto) 16.5 % (10.0-50.0); Mean Corpuscular Hemoglobin 31.2 pg (28.0-32.0); Mean Corpuscular Volume 91.8 fL (80.0-100.0); Monocytes # (auto) 0.9 uL; Neutrophils # (auto) 5.4 uL; Neutrophils % (auto) 69.1 % (37.0-80.0); Nucleated Red Blood Cells % 0.2 %; Platelet Count (auto) 306 10^3/uL (140-450); Red Blood Cells 4.02 10^6/uL (4.5-5.90); Red Cell Distribution Width 16.6 % (11.8-14.3); White Blood Cell 7.9 10^3/uL (4.4-10.8)
[2018-02-06 16:07] LABS: Albumin 2.8 g/dL (3.4-5.0); BUN/Creatinine Ratio 9.4; Calcium 8.4 mg/dL (8.5-10.1)
[2018-02-06 16:15] LABS: Bilirubin, Total 0.1 mg/dL (0.2-1.0); Total Protein 6.3 g/dL (6.4-8.2)
== END | disposition home or self-care (01) ==
LOC: CHF HDHVI 11:48
PROVIDERS: ATTEND Internal Medicine Cardiovascular Disease
DX: E29.1 Testicular hypofunction (principal); I11.0 Hypertensive heart disease with heart failure; I50.23 Acute on chronic systolic (congestive) heart failure; E03.9 Hypothyroidism, unspecified; D64.9 Anemia, unspecified; R06.02 Shortness of breath; I25.10 Atherosclerotic heart disease of native coronary artery without angina pectoris; K21.9 Gastro-esophageal reflux disease without esophagitis; Z79.01 Long term (current) use of anticoagulants; Z79.899 Other long term (current) drug therapy
CPT/HCPCS: 36415; 80053; 82306; 83880; 85025; 85610; 94618; 96372; G0463; J1071

== ENCOUNTER → 2018-02-14 | Outpatient (CLI) | payer MEDICARE ==
[~2018-02-14] VITALS: Ht 30.5 cm; Wt 0.5 kg
[2018-02-14 11:00] VITALS: BP 103/67
[2018-02-14 11:25] VITALS: BP 100/76
== END | disposition home or self-care (01) ==
LOC: CHF HDHVI 11:15
PROVIDERS: ATTEND Internal Medicine Cardiovascular Disease
DX: E29.1 Testicular hypofunction (principal); I25.10 Atherosclerotic heart disease of native coronary artery without angina pectoris; I11.0 Hypertensive heart disease with heart failure; I50.23 Acute on chronic systolic (congestive) heart failure; K21.9 Gastro-esophageal reflux disease without esophagitis; E03.9 Hypothyroidism, unspecified; Z95.810 Presence of automatic (implantable) cardiac defibrillator; Z85.46 Personal history of malignant neoplasm of prostate
CPT/HCPCS: 96372; G0463; J1071

== ENCOUNTER → 2018-02-21 | Outpatient (CLI) | payer MEDICARE ==
[~2018-02-21] VITALS: Ht 30.5 cm; Wt 0.5 kg
[2018-02-21 11:00] VITALS: BP 114/77
[2018-02-21 11:35] VITALS: BP 107/68
== END | disposition home or self-care (01) ==
LOC: CHF HDHVI 10:57
PROVIDERS: ATTEND Internal Medicine Cardiovascular Disease
DX: E29.1 Testicular hypofunction (principal); I27.21 Secondary pulmonary arterial hypertension; R53.83 Other fatigue; I11.0 Hypertensive heart disease with heart failure; I50.23 Acute on chronic systolic (congestive) heart failure; I25.10 Atherosclerotic heart disease of native coronary artery without angina pectoris; K21.9 Gastro-esophageal reflux disease without esophagitis; E03.9 Hypothyroidism, unspecified; F41.9 Anxiety disorder, unspecified; I48.91 Unspecified atrial fibrillation; I25.2 Old myocardial infarction; Z95.810 Presence of automatic (implantable) cardiac defibrillator; Z85.46 Personal history of malignant neoplasm of prostate; Z86.73 Personal history of transient ischemic attack (TIA), and cerebral infarction without residual deficits; Z79.01 Long term (current) use of anticoagulants; Z79.899 Other long term (current) drug therapy; Z95.1 Presence of aortocoronary bypass graft; Z98.61 Coronary angioplasty status
CPT/HCPCS: 85610; 93701; 96372; G0463; J1071

== ENCOUNTER → 2018-03-05 | Outpatient (CLI) | payer MEDICARE ==
[2018-03-05 09:00] VITALS: BP 117/74
[2018-03-05 09:40] VITALS: BP 126/74
== END | disposition home or self-care (01) ==
LOC: CHF HDHVI 09:09
PROVIDERS: ATTEND Internal Medicine Cardiovascular Disease
DX: E29.1 Testicular hypofunction (principal); E03.9 Hypothyroidism, unspecified; I11.0 Hypertensive heart disease with heart failure; I50.23 Acute on chronic systolic (congestive) heart failure; I25.10 Atherosclerotic heart disease of native coronary artery without angina pectoris; K21.9 Gastro-esophageal reflux disease without esophagitis; I25.2 Old myocardial infarction; Z98.61 Coronary angioplasty status; Z79.01 Long term (current) use of anticoagulants; Z79.899 Other long term (current) drug therapy; Z95.1 Presence of aortocoronary bypass graft; Z95.810 Presence of automatic (implantable) cardiac defibrillator; Z86.73 Personal history of transient ischemic attack (TIA), and cerebral infarction without residual deficits
CPT/HCPCS: 85610; 96372; G0463; J1071

== ENCOUNTER → 2018-03-14 | Outpatient (CLI) | payer MEDICARE ==
[~2018-03-14] VITALS: Ht 30.5 cm; Wt 0.5 kg
[~2018-03-14] MED LIST changes: +CYANOCOBALAMIN (B-12) 1000 MCG/1 ML VIAL IM ONE; +CYANOCOBALAMIN (B-12) 1000 MCG/1 ML VIAL ONE; -TESTOSTERONE CYPIONATE 200 MG/ML 1ML VIAL IM ONE
[2018-03-14 12:56] VITALS: BP 103/53
[2018-03-14 12:58] VITALS: BP 103/53
== END | disposition home or self-care (01) ==
LOC: Rad HDHVI 12:30
PROVIDERS: ATTEND Internal Medicine Cardiovascular Disease
DX: Z01.818 Encounter for other preprocedural examination (principal); I25.5 Ischemic cardiomyopathy; I11.0 Hypertensive heart disease with heart failure; I50.23 Acute on chronic systolic (congestive) heart failure; E03.9 Hypothyroidism, unspecified; I25.10 Atherosclerotic heart disease of native coronary artery without angina pectoris; K21.9 Gastro-esophageal reflux disease without esophagitis; I25.2 Old myocardial infarction; E78.00 Pure hypercholesterolemia, unspecified; I48.91 Unspecified atrial fibrillation; Z79.01 Long term (current) use of anticoagulants; Z98.61 Coronary angioplasty status; Z95.810 Presence of automatic (implantable) cardiac defibrillator; Z95.1 Presence of aortocoronary bypass graft
CPT/HCPCS: 85610; 93306; 96372; G0463; J3420

== ENCOUNTER → 2018-03-20 | Outpatient (CLI) | payer MEDICARE ==
[~2018-03-20] MED LIST changes: +ALBUTEROL SULF 2.5 MG/0.5ML(0.5%) NEB SOLN ONE; -CYANOCOBALAMIN (B-12) 1000 MCG/1 ML VIAL IM ONE; -CYANOCOBALAMIN (B-12) 1000 MCG/1 ML VIAL ONE
== END | disposition home or self-care (01) ==
LOC: RT 08:29
PROVIDERS: ATTEND Internal Medicine Cardiovascular Disease
DX: I11.0 Hypertensive heart disease with heart failure (principal); I50.9 Heart failure, unspecified; E03.9 Hypothyroidism, unspecified; K21.9 Gastro-esophageal reflux disease without esophagitis; Z85.46 Personal history of malignant neoplasm of prostate; Z94.1 Heart transplant status; I48.91 Unspecified atrial fibrillation
CPT/HCPCS: 94060; 94640; 94727; 94729

== ENCOUNTER → 2018-04-01 | Outpatient (CLI) | payer MEDICARE ==
[~2018-04-01] MED LIST changes: -ALBUTEROL SULF 2.5 MG/0.5ML(0.5%) NEB SOLN ONE; +TESTOSTERONE CYPIONATE 200 MG/ML 1ML VIAL IM ONE
[2018-04-01 14:30] VITALS: BP 131/75
[2018-04-01 14:48] VITALS: BP 131/77
== END | disposition home or self-care (01) ==
LOC: CHF HDHVI 14:18
PROVIDERS: ATTEND Internal Medicine Cardiovascular Disease
DX: E29.1 Testicular hypofunction (principal); I11.0 Hypertensive heart disease with heart failure; I50.23 Acute on chronic systolic (congestive) heart failure; K21.9 Gastro-esophageal reflux disease without esophagitis; E03.9 Hypothyroidism, unspecified; I48.91 Unspecified atrial fibrillation; I25.2 Old myocardial infarction; Z94.1 Heart transplant status; Z98.61 Coronary angioplasty status; Z79.01 Long term (current) use of anticoagulants; Z95.810 Presence of automatic (implantable) cardiac defibrillator
CPT/HCPCS: 85610; 96372; G0463; J1071

== ENCOUNTER → 2018-04-30 | Outpatient (CLI) | payer MEDICARE ==
[~2018-04-30] MED LIST changes: -TESTOSTERONE CYPIONATE 200 MG/ML 1ML VIAL IM ONE
[2018-04-30 11:00] VITALS: BP 120/78
[2018-05-01 18:03] LABS: Protein, Urine 6.7 mg/dL (0.0-11.9)
[2018-05-01 18:18] LABS: 24 Hr. Total Protein, Urine 140.7 mg/24 Hr (<149.1)
[2018-05-02 09:33] LABS: Hepatitis B Surface Antibody Negative
[2018-05-02 10:05] LABS: Hepatitis A Total Antibody Negative
[2018-05-02 10:19] LABS: Hepatitis C Antibody Negative (Negative)
[2018-05-02 10:20] LABS: Hepatitis B Core Total AB Negative; Hepatitis B Surface Antigen Negative (Negative)
== END | disposition home or self-care (01) ==
LOC: CHF HDHVI 10:17
PROVIDERS: ATTEND Internal Medicine Cardiovascular Disease
DX: Z01.812 Encounter for preprocedural laboratory examination (principal); E29.1 Testicular hypofunction; I11.0 Hypertensive heart disease with heart failure; I50.9 Heart failure, unspecified; K21.9 Gastro-esophageal reflux disease without esophagitis; Z94.1 Heart transplant status; Z79.82 Long term (current) use of aspirin; Z20.6 Contact with and (suspected) exposure to human immunodeficiency virus [HIV]
CPT/HCPCS: 36415; 84156; 84403; 85610; 86703; 86704; 86706; 86708; 86803; 86900; 86901; 87340; G0463

== ENCOUNTER → 2018-05-09 | Outpatient (CLI) | payer MEDICARE ==
[~2018-05-09] VITALS: Ht 30.5 cm; Wt 84.6 kg
[~2018-05-09] MED LIST changes: +CYANOCOBALAMIN (B-12) 1000 MCG/1 ML VIAL IM ONE; +CYANOCOBALAMIN (B-12) 1000 MCG/1 ML VIAL ONE
[2018-05-09 08:43] VITALS: BP 104/67
== END | disposition home or self-care (01) ==
LOC: CHF HDHVI 08:00
PROVIDERS: ATTEND Internal Medicine Cardiovascular Disease
DX: E29.1 Testicular hypofunction (principal); I11.0 Hypertensive heart disease with heart failure; I50.23 Acute on chronic systolic (congestive) heart failure; R53.1 Weakness; I25.10 Atherosclerotic heart disease of native coronary artery without angina pectoris; E03.9 Hypothyroidism, unspecified; I25.2 Old myocardial infarction; I25.5 Ischemic cardiomyopathy; I70.0 Atherosclerosis of aorta; I48.91 Unspecified atrial fibrillation; K21.9 Gastro-esophageal reflux disease without esophagitis; Z79.82 Long term (current) use of aspirin; Z79.01 Long term (current) use of anticoagulants; Z79.899 Other long term (current) drug therapy; Z95.810 Presence of automatic (implantable) cardiac defibrillator; Z95.1 Presence of aortocoronary bypass graft; Z85.46 Personal history of malignant neoplasm of prostate; Z98.61 Coronary angioplasty status
CPT/HCPCS: 36415; 84403; 85610; 96372; G0463; J3420

== ENCOUNTER → 2018-05-16 | Outpatient (CLI) | payer MEDICARE ==
[~2018-05-16] MED LIST changes: -CYANOCOBALAMIN (B-12) 1000 MCG/1 ML VIAL IM ONE; -CYANOCOBALAMIN (B-12) 1000 MCG/1 ML VIAL ONE
[2018-05-16 10:00] VITALS: BP 118/72
[2018-05-16 10:33] VITALS: BP 105/68
== END | disposition home or self-care (01) ==
LOC: CHF HDHVI 09:41
PROVIDERS: ATTEND Internal Medicine Cardiovascular Disease
DX: C61 Malignant neoplasm of prostate (principal); I11.0 Hypertensive heart disease with heart failure; I50.9 Heart failure, unspecified; K21.9 Gastro-esophageal reflux disease without esophagitis; E03.9 Hypothyroidism, unspecified; E78.00 Pure hypercholesterolemia, unspecified; Z79.01 Long term (current) use of anticoagulants; Z79.899 Other long term (current) drug therapy; Z79.82 Long term (current) use of aspirin
CPT/HCPCS: 36415; 84403; 85610; 93701; G0463

== ENCOUNTER → 2018-05-23 | Outpatient (CLI) | payer MEDICARE ==
[2018-05-23 16:10] VITALS: BP 104/71
[2018-05-23 16:24] VITALS: BP 125/80
== END | disposition home or self-care (01) ==
LOC: CHF HDHVI 16:12
PROVIDERS: ATTEND Internal Medicine Cardiovascular Disease
DX: I25.10 Atherosclerotic heart disease of native coronary artery without angina pectoris (principal); I10 Essential (primary) hypertension; E78.5 Hyperlipidemia, unspecified
CPT/HCPCS: G0463

== ENCOUNTER → 2018-05-30 | Outpatient (CLI) | payer MEDICARE ==
[2018-05-30 11:05] VITALS: BP 106/73
[2018-05-30 11:35] VITALS: BP 109/75
== END | disposition home or self-care (01) ==
LOC: CHF HDHVI 11:03
PROVIDERS: ATTEND Internal Medicine Cardiovascular Disease
DX: I63.9 Cerebral infarction, unspecified (principal); I50.9 Heart failure, unspecified
CPT/HCPCS: 85610; G0463

== ENCOUNTER → 2018-06-06 | Outpatient (CLI) | payer MEDICARE ==
[~2018-06-06] MED LIST changes: +TESTOSTERONE CYPIONATE 200 MG/ML 1ML VIAL IM ONE
[2018-06-06 11:10] VITALS: BP 109/67
[2018-06-06 12:00] VITALS: BP 112/68
== END | disposition home or self-care (01) ==
LOC: CHF HDHVI 11:17
PROVIDERS: ATTEND Internal Medicine Cardiovascular Disease
DX: E29.1 Testicular hypofunction (principal); I27.21 Secondary pulmonary arterial hypertension; I11.0 Hypertensive heart disease with heart failure; I50.23 Acute on chronic systolic (congestive) heart failure; I25.10 Atherosclerotic heart disease of native coronary artery without angina pectoris; K21.9 Gastro-esophageal reflux disease without esophagitis; E03.9 Hypothyroidism, unspecified; I25.2 Old myocardial infarction; I48.91 Unspecified atrial fibrillation; Z79.01 Long term (current) use of anticoagulants; Z79.82 Long term (current) use of aspirin; Z79.899 Other long term (current) drug therapy; Z85.46 Personal history of malignant neoplasm of prostate; Z98.61 Coronary angioplasty status; Z95.810 Presence of automatic (implantable) cardiac defibrillator; Z95.1 Presence of aortocoronary bypass graft
CPT/HCPCS: 85610; 96372; G0463; J1071

== ENCOUNTER → 2018-06-12 | Outpatient (CLI) | payer MEDICARE ==
[~2018-06-12] MED LIST changes: -TESTOSTERONE CYPIONATE 200 MG/ML 1ML VIAL IM ONE
[2018-06-12 15:40] VITALS: BP 109/62
[2018-06-12 16:15] VITALS: BP 110/71
== END | disposition home or self-care (01) ==
LOC: CHF HDHVI 15:46
PROVIDERS: ATTEND Internal Medicine Cardiovascular Disease
DX: I25.10 Atherosclerotic heart disease of native coronary artery without angina pectoris (principal); I63.9 Cerebral infarction, unspecified; M54.9 Dorsalgia, unspecified; I50.9 Heart failure, unspecified
CPT/HCPCS: 85610; G0463

== ENCOUNTER → 2018-06-13 | Outpatient (CLI) | payer MEDICARE ==
[~2018-06-13] MED LIST changes: +IOHEXOL 350 MG/ML 100ML IJ ONE
[2018-06-13 12:40] VITALS: BP 96/65
[2018-06-13 13:13] VITALS: BP 127/78
== END | disposition home or self-care (01) ==
LOC: Rad HDHVI 12:26
PROVIDERS: ATTEND Internal Medicine Cardiovascular Disease
DX: I51.7 Cardiomegaly (principal); S32.019A Unspecified fracture of first lumbar vertebra, initial encounter for closed fracture; S32.039A Unspecified fracture of third lumbar vertebra, initial encounter for closed fracture; N32.89 Other specified disorders of bladder; N32.3 Diverticulum of bladder; I70.0 Atherosclerosis of aorta; Z95.1 Presence of aortocoronary bypass graft; X58.XXXA Exposure to other specified factors, initial encounter; Y93.89 Activity, other specified; Y92.89 Other specified places as the place of occurrence of the external cause; Y99.8 Other external cause status
CPT/HCPCS: 71260; 74177; 82565; G0463; Q9967

== ENCOUNTER → 2018-07-19 | Outpatient (CLI) | payer MEDICARE ==
[~2018-07-19] MED LIST changes: +CYANOCOBALAMIN (B-12) 1000 MCG/1 ML VIAL IM ONE; +CYANOCOBALAMIN (B-12) 1000 MCG/1 ML VIAL ONE; -IOHEXOL 350 MG/ML 100ML IJ ONE
[2018-07-19 10:00] VITALS: BP 91/54
[2018-07-19 11:20] VITALS: BP 100/66
[2018-07-19 12:32] LABS: Albumin 2.9 g/dL (3.4-5.0); Calcium 8.6 mg/dL (8.5-10.1); Magnesium 2.4 mg/dL (1.6-2.6); Potassium 4.5 mmol/L (3.5-5.1)
[2018-07-19 12:35] LABS: BUN/Creatinine Ratio 16.3; Basophils # (auto) 0 uL; Basophils % (auto) 0.4 % (0.0-2.0); Eosinophils # (auto) 0.1 uL; Hematocrit 43.6 % (41.0-53.0); Hemoglobin 14.6 g/dL (13.5-17.5); Lymphocytes # (auto) 1.3 uL; Lymphocytes % (auto) 15.3 % (10.0-50.0); Mean Corpuscular Hemoglobin 30.9 pg (28.0-32.0); Mean Corpuscular Hgb Conc. 33.6 g/dL (32.0-36.0); Mean Corpuscular Volume 92.1 fL (80.0-100.0); Monocytes # (auto) 0.9 uL; Monocytes % (auto) 10.7 % (0.0-12.0); Neutrophils # (auto) 6.3 uL; Neutrophils % (auto) 72.6 % (37.0-80.0); Platelet Count (auto) 379 10^3/uL (140-450); Red Blood Cells 4.74 10^6/uL (4.5-5.90); Red Cell Distribution Width 16.5 % (11.8-14.3); White Blood Cell 8.7 10^3/uL (4.4-10.8)
[2018-07-19 12:36] LABS: Bilirubin, Total 0.3 mg/dL (0.2-1.0); Total Protein 7.3 g/dL (6.4-8.2)
[2018-07-19 12:44] LABS: INR 1.19 (0.9-1.15); Partial Thromboplastin Time 33.4 sec (23.78-33.04); Prothrombin Time 12.6 sec (9.27-12.13)
== END | disposition home or self-care (01) ==
LOC: CHF HDHVI 10:00
PROVIDERS: ATTEND Internal Medicine Cardiovascular Disease
DX: E83.40 Disorders of magnesium metabolism, unspecified (principal); E03.9 Hypothyroidism, unspecified; R79.1 Abnormal coagulation profile; I50.9 Heart failure, unspecified; D64.9 Anemia, unspecified; I11.0 Hypertensive heart disease with heart failure; I25.2 Old myocardial infarction; I50.23 Acute on chronic systolic (congestive) heart failure; K21.9 Gastro-esophageal reflux disease without esophagitis; Z95.1 Presence of aortocoronary bypass graft; Z79.01 Long term (current) use of anticoagulants; Z95.810 Presence of automatic (implantable) cardiac defibrillator; Z85.46 Personal history of malignant neoplasm of prostate; Z79.82 Long term (current) use of aspirin; Z79.899 Other long term (current) drug therapy; Z98.61 Coronary angioplasty status
CPT/HCPCS: 36415; 80053; 82306; 83735; 83880; 84153; 84154; 84443; 85025; 85610; 85730; 93701; 94618; 96372; G0463; J3420

== ENCOUNTER → 2018-11-04 | Outpatient (CLI) | payer MEDICARE ==
[2018-11-04 13:00] VITALS: BP 109/59
--- NOTE | 2018-11-04 13:00 | NUR ---
IN TO CLINIC FOR REPORT OF HYPERTENSION AT HOME. PT BROUGHT HOME MEASUREMENTS OF BLOOD PRESSURES AND INR CHECKS. PT CONCERN OVER BLOOD PRESSURES. NOTED BLOOD PRESSURE RANGE 100'S -130-S SYSTOLIC AND DIASTOLIC 58-82. DISCUSSED SALT MANAGEMENT AND STRESS AT HOME. PT AGREES THAT STRESS HAS BEEN HIGH AND SALT INTAKE HAS BEEN HIGH ALSO. WILL CONTINUE TO MONITOR BP AT HOME WITH NO CHANGE IN MEDICATION DUE TO BP STILL WNL. PACEMAKER INTERROGATED BY [facility]. TOLERATED WELL. PT REPORTS THAT HIS AICD IS NOT "ENROLLED IN HOME MANAGEMENT". ALSO DEFERRED TO [facility]. FOLLOWUP WITH [facility] ON 11/27 FOR TRANSPLANT EVALUATION. CARDIODYNAMICS AND 6MWT DONE AND REVIEWED BY HONEY GRIMES. BOTH TESTS SHOWED GAINS. Discharge Instructions See e-MAR for any mediations given with this visit. Patient education given on disease process. Patient verbalized understanding. Previous labs reviewed. Patient discharged in stable condition with after care instructions and follow up appointment FOR 1 MONTH. MEDICATION ADMINISTRATION VIT B12 1000 MCG IM TO RIGHT DELTOID AT 1328 AICD/PACER INTERROGATION BY [facility] CARDIODYNAMICS 6MWT
[2018-11-04 13:28] VITALS: BP 109/62
[2018-11-04 16:22] LABS: Basophils # (auto) 0 uL; Basophils % (auto) 0.6 % (0.0-2.0); Eosinophils # (auto) 0.1 uL; Eosinophils % (auto) 1.7 % (0.0-7.0); Hematocrit 42.9 % (41.0-53.0); Hemoglobin 14.3 g/dL (13.5-17.5); Lymphocytes # (auto) 1.7 uL; Lymphocytes % (auto) 20.9 % (10.0-50.0); Mean Corpuscular Hemoglobin 31.9 pg (28.0-32.0); Mean Corpuscular Hgb Conc. 33.3 g/dL (32.0-36.0); Mean Corpuscular Volume 95.9 fL (80.0-100.0); Monocytes % (auto) 12.2 % (0.0-12.0); Neutrophils # (auto) 5.1 uL; Neutrophils % (auto) 64.6 % (37.0-80.0); Nucleated Red Blood Cells % 0.1 %; Platelet Count (auto) 261 10^3/uL (140-450); Red Blood Cells 4.48 10^6/uL (4.5-5.90); White Blood Cell 7.9 10^3/uL (4.4-10.8)
[2018-11-04 16:27] LABS: Calcium 8.8 mg/dL (8.5-10.1); Potassium 4.5 mmol/L (3.5-5.1)
[2018-11-04 16:30] LABS: BUN/Creatinine Ratio 24.6; Magnesium 2.6 mg/dL (1.6-2.6)
== END | disposition home or self-care (01) ==
LOC: CHF HDHVI 11:22
PROVIDERS: ATTEND Internal Medicine Cardiovascular Disease
DX: D64.9 Anemia, unspecified (principal); I11.0 Hypertensive heart disease with heart failure; I10 Essential (primary) hypertension; I25.10 Atherosclerotic heart disease of native coronary artery without angina pectoris; E83.40 Disorders of magnesium metabolism, unspecified; E11.9 Type 2 diabetes mellitus without complications; I50.22 Chronic systolic (congestive) heart failure; K21.9 Gastro-esophageal reflux disease without esophagitis; E03.9 Hypothyroidism, unspecified; I25.2 Old myocardial infarction; I27.21 Secondary pulmonary arterial hypertension; E78.5 Hyperlipidemia, unspecified; E78.00 Pure hypercholesterolemia, unspecified; M16.0 Bilateral primary osteoarthritis of hip; M10.9 Gout, unspecified; K74.1 Hepatic sclerosis; I69.354 Hemiplegia and hemiparesis following cerebral infarction affecting left non-dominant side; Z98.61 Coronary angioplasty status; Z79.01 Long term (current) use of anticoagulants; Z79.82 Long term (current) use of aspirin; Z79.899 Other long term (current) drug therapy; Z95.810 Presence of automatic (implantable) cardiac defibrillator; Z95.1 Presence of aortocoronary bypass graft; Z85.46 Personal history of malignant neoplasm of prostate; Z94.1 Heart transplant status
CPT/HCPCS: 36415; 80048; 82306; 83036; 83735; 85025; 96372; G0463; J3420

== ENCOUNTER → 2018-11-19 | Outpatient (CLI) | payer MEDICARE ==
[~2018-11-19] MED LIST changes: -CYANOCOBALAMIN (B-12) 1000 MCG/1 ML VIAL IM ONE; -CYANOCOBALAMIN (B-12) 1000 MCG/1 ML VIAL ONE; +LEVO100T8 PO; +SACU1TAB7 PO
[2018-11-19 10:51] VITALS: BP 100/60
[2018-11-19 11:12] VITALS: BP 115/73
--- NOTE | 2018-11-19 11:12 | NUR ---
Pre-Op Discharge Summary: See e-MAR for any medications given for this visit. Pre-op orders received and carried out per MD of EKG, LABS and chest xrays. Patient given a copy of EKG with instructions to go to [facility] out patient for further follow up care.
[2018-11-19 11:55] LABS: Basophils # (auto) 0.1 uL; Basophils % (auto) 0.9 % (0.0-2.0); Eosinophils # (auto) 0.2 uL; Hematocrit 42.1 % (41.0-53.0); Hemoglobin 13.8 g/dL (13.5-17.5); Lymphocytes # (auto) 1.3 uL; Lymphocytes % (auto) 21.7 % (10.0-50.0); Mean Corpuscular Hemoglobin 31.7 pg (28.0-32.0); Mean Corpuscular Hgb Conc. 32.9 g/dL (32.0-36.0); Mean Corpuscular Volume 96.2 fL (80.0-100.0); Monocytes # (auto) 0.5 uL; Monocytes % (auto) 8.9 % (0.0-12.0); Neutrophils % (auto) 65.5 % (37.0-80.0); Platelet Count (auto) 283 10^3/uL (140-450); Red Blood Cells 4.37 10^6/uL (4.5-5.90); Red Cell Distribution Width 14.9 % (11.8-14.3); White Blood Cell 6.2 10^3/uL (4.4-10.8)
[2018-11-19 12:04] LABS: INR 1.12 (0.9-1.15); Partial Thromboplastin Time 30.3 sec (23.78-33.04); Prothrombin Time 11.9 sec (9.27-12.13)
[2018-11-19 12:07] LABS: Potassium 4.3 mmol/L (3.5-5.1)
[2018-11-19 12:09] LABS: BUN/Creatinine Ratio 21.7
== END | disposition home or self-care (01) ==
LOC: Rad HDHVI 10:07
PROVIDERS: ATTEND Internal Medicine Cardiovascular Disease
DX: Z01.818 Encounter for other preprocedural examination (principal); I10 Essential (primary) hypertension; D64.9 Anemia, unspecified; R79.1 Abnormal coagulation profile
CPT/HCPCS: 36415; 80048; 85025; 85610; 85730; 93005; G0463

== ENCOUNTER 2018-11-21 10:06 | Day surgery (SDC) | payer MEDICARE ==
[~2018-11-21] VITALS: Ht 177.8 cm; Wt 86.2 kg
[~2018-11-21 10:06] MED LIST changes: -FERR83TA2 PO; -LORA-655 PO; -ROSU10TA16 PO; -SACU1TAB PO; -WARF3TAB22 PO
[2018-11-21] MEDS ORDERED: ceFAZolin 1GM/50ML 50 ML IV ONE (10:47)
[2018-11-21] MEDS ORDERED: LIDOCAINE 2%HCL (LOCAL ANESTH.) INJ 20ML MDV ONE (12:38)
[2018-11-21] MEDS ORDERED: fentaNYL CITRATE 100 MCG/2 ML VL ONE (12:43)
[2018-11-21] MEDS ORDERED: VANCOMYCIN HCL 1000 MG VL ONE (12:43)
[2018-11-21] MEDS ORDERED: MIDAZOLAM HCL 1MG/1ML-2 ML VIAL ONE (12:43)
[2018-11-21] MEDS ORDERED: VANCOMYCIN 1GM/250ML 250 ML IV ONE (12:43)
[2018-11-21] MEDS ORDERED: ceFAZolin 1GM VL ONE (13:22)
== END 2018-11-21 15:30 | disposition home or self-care (01) ==
LOC: CATH 10:06
PROVIDERS: ATTEND Internal Medicine Cardiovascular Disease
DX: Z45.010 Encounter for checking and testing of cardiac pacemaker pulse generator [battery] (principal); I25.5 Ischemic cardiomyopathy; E78.5 Hyperlipidemia, unspecified; I25.2 Old myocardial infarction; I11.0 Hypertensive heart disease with heart failure; Z95.5 Presence of coronary angioplasty implant and graft; Z82.49 Family history of ischemic heart disease and other diseases of the circulatory system; Z86.73 Personal history of transient ischemic attack (TIA), and cerebral infarction without residual deficits; Z95.1 Presence of aortocoronary bypass graft; Z79.82 Long term (current) use of aspirin; Z79.899 Other long term (current) drug therapy
CPT/HCPCS: 33264; C1882; J0690; J2250; J3010; J3370; J3590; J7030; 99152; 99153

== ENCOUNTER → 2018-12-05 | Outpatient (CLI) | payer MEDICARE ==
[2018-12-05 12:15] VITALS: BP_SYST 100; BP_SYST 99; BP_DIAS 60; BP_DIAS 67
--- NOTE | 2018-12-05 12:15 | NUR ---
CHF AND COUMADIN MANAGEMENT. LABS DRAWN AND SENT. WITHOUT DISTRESS OR DISCOMFORT. CARDIODYNAMICS DONE AND REVIEWED. QUESTIONS DENIED. FOLLOWUP WITH PT INR RESULTS TOMMOROW. CONTINUE ON 4.5 MG 2X WEEK AND 3 MG 5 TIMES WEEKLY. MONITOR RESPONSE. Discharge Instructions See e-MAR for any mediations given with this visit. Patient education given on disease process. Patient verbalized understanding. Previous labs reviewed. Patient discharged in stable condition with after care instructions and follow up appointment.
[2018-12-05 16:13] LABS: Cholesterol 167 mg/dL (< 200); HDL Cholesterol 75 mg/dL (40-59); LDL Cholesterol 86 mg/dL (< 100); Triglycerides 57 mg/dL (< 150)
[2018-12-05 16:33] LABS: INR 1.3 (0.9-1.15); Partial Thromboplastin Time 31.8 sec (23.78-33.04); Prothrombin Time 13.7 sec (9.27-12.13)
== END | disposition home or self-care (01) ==
LOC: LAB 10:48
PROVIDERS: ATTEND Internal Medicine Cardiovascular Disease
DX: E78.5 Hyperlipidemia, unspecified (principal); C61 Malignant neoplasm of prostate; R79.1 Abnormal coagulation profile
CPT/HCPCS: 36415; 80061; 84153; 84403; 85610; 85730; 93701; G0463

== ENCOUNTER → 2019-01-01 | Outpatient (CLI) | payer MEDICARE ==
[~2019-01-01] VITALS: Ht 30.5 cm; Wt 0.5 kg
[~2019-01-01] MED LIST changes: +CYANOCOBALAMIN (B-12) 1000 MCG/1 ML VIAL IM ONE; +CYANOCOBALAMIN (B-12) 1000 MCG/1 ML VIAL ONE; +KETOROLAC TROMETH 60MG/2ML VIAL IM ONE; +cefTRIAXone 1GM/50ML D5W 50 ML IV ONE; +cefTRIAXone SOD 1,000 MG VL ONE
[2019-01-01 11:00] VITALS: BP 108/57
--- NOTE | 2019-01-01 11:00 | NUR ---
CHF PT ARRIVED AT [facility] TX/EVAL VIRUS AND COUGH X 3 DAYS. PT ALERT AND ORIENTED X 3 . 0 DISTRESS
[2019-01-01 12:35] VITALS: BP 117/65
--- NOTE | 2019-01-01 12:35 | NUR ---
Discharge Instructions See e-MAR for any mediations given with this visit. Patient education given on disease process. Patient verbalized understanding. Previous labs reviewed. Patient discharged in stable condition with after care instructions and follow up appointment MEDICATIONS 1225 ROCEPHIN 1 GRAM IVP X 1 1232 TORADOL INJECTION 60MG IM RIGHT GLUTE LOT # [id number] EXP 09/26 1230 VITAMIN B12 1000 MCG IM LEFT DELTOID # [id number] 09/26
--- NOTE | 2019-01-15 16:44 | NUR ---
INR RETURNED AT 5.0. CALLED PT AND PT REPORTS HOLDING A DOSE OF COUMADIN LAST NIGHT AND "EATING A CAN OF SPINACH" . INSTRUCTED TO CONTINUE 3MG STARTING TODAY EVERY DAY X 1 WEEK. RECHECK INR IN 1 WEEK. PT REPEATED BACK INSTRUCTIONS. QUESTIONS DENIED.
== END | disposition home or self-care (01) ==
LOC: CHF HDHVI 11:15
PROVIDERS: ATTEND Internal Medicine Cardiovascular Disease
DX: I11.0 Hypertensive heart disease with heart failure (principal); I50.9 Heart failure, unspecified; I25.2 Old myocardial infarction; E78.5 Hyperlipidemia, unspecified; Z85.46 Personal history of malignant neoplasm of prostate; Z79.82 Long term (current) use of aspirin; Z79.899 Other long term (current) drug therapy; Z95.1 Presence of aortocoronary bypass graft; Z86.73 Personal history of transient ischemic attack (TIA), and cerebral infarction without residual deficits; Z95.5 Presence of coronary angioplasty implant and graft
CPT/HCPCS: 96372; 96374; G0463; J0696; J1885; J3420; J7060

== ENCOUNTER → 2019-01-22 | Outpatient (CLI) | payer MEDICARE ==
[~2019-01-22] MED LIST changes: -CYANOCOBALAMIN (B-12) 1000 MCG/1 ML VIAL IM ONE; -CYANOCOBALAMIN (B-12) 1000 MCG/1 ML VIAL ONE; -KETOROLAC TROMETH 60MG/2ML VIAL IM ONE; -cefTRIAXone 1GM/50ML D5W 50 ML IV ONE; -cefTRIAXone SOD 1,000 MG VL ONE
[2019-01-22 11:30] VITALS: BP 109/69
--- NOTE | 2019-01-22 11:30 | NUR ---
CHF ARRIVED AT [facility] CLINIC FOR INR CHECK UP
--- NOTE | 2019-01-22 11:30 | NUR ---
CHF PT ALERT ORIENTED 0 DISTRESS VITAL SIGNS OBTAINED
[2019-01-22 11:42] VITALS: BP 95/61
--- NOTE | 2019-01-22 11:42 | NUR ---
Discharge Instructions See e-MAR for any mediations given with this visit. Patient education given on disease process. Patient verbalized understanding. Previous labs reviewed. Patient discharged in stable condition with after care instructions and follow up appointment.
== END | disposition home or self-care (01) ==
LOC: CHF HDHVI 11:34
PROVIDERS: ATTEND Internal Medicine Cardiovascular Disease
DX: I48.91 Unspecified atrial fibrillation (principal)
CPT/HCPCS: G0463

== ENCOUNTER → 2019-03-21 | Outpatient (CLI) | payer MEDICARE ==
--- NOTE | 2019-03-21 11:00 | NUR ---
PATIENT IN CLINIC FOR MED REC ON MD YOSELIN SIGNED FORM REQUESTED BY PATIENT.
== END | disposition home or self-care (01) ==
LOC: CHF HDHVI 11:02
PROVIDERS: ATTEND Internal Medicine Cardiovascular Disease
DX: E78.5 Hyperlipidemia, unspecified (principal); Z95.5 Presence of coronary angioplasty implant and graft
CPT/HCPCS: G0463

== ENCOUNTER → 2019-04-11 | Outpatient (CLI) | payer MEDICARE ==
[~2019-04-11] VITALS: Ht 33 cm; Wt 90.7 kg
[~2019-04-11] MED LIST changes: +CYANOCOBALAMIN (B-12) 1000 MCG/1 ML VIAL IM ONE; +CYANOCOBALAMIN (B-12) 1000 MCG/1 ML VIAL ONE
[2019-04-11 09:15] VITALS: BP 123/51
[2019-04-11 09:30] VITALS: BP 120/48
[2019-04-11 10:15] VITALS: BP 125/54
[2019-04-11 10:30] VITALS: BP 122/50
[2019-04-11 11:35] VITALS: BP 114/53
[2019-04-11 13:15] VITALS: BP 109/73
--- NOTE | 2019-04-11 13:15 | NUR ---
CHF CLINIC Discharge Instructions See e-MAR for any mediations given with this visit. Patient education given on disease process. Patient verbalized understanding. Previous labs reviewed. Patient discharged in stable condition with after care instructions and follow up appointment. NOTE CARDIODYNAMICS PERFORMED BY SAVANNAH AGUIRRE AND REVIEWED WITH PATIENT BY SAM GRIMES. B12 IM L DELTOID ADMIN BY SAM GRIMES.
[2019-04-11 15:54] LABS: Albumin 3.8 g/dL (3.4-5.0); BUN/Creatinine Ratio 17.9; Calcium 9.1 mg/dL (8.5-10.1); Potassium 4.1 mmol/L (3.5-5.1)
[2019-04-11 15:57] LABS: Bilirubin, Total 0.3 mg/dL (0.2-1.0); Total Protein 7.4 g/dL (6.4-8.2)
[2019-04-11 16:28] LABS: Basophils # (auto) 0.1 uL; Basophils % (auto) 1.3 % (0.0-2.0); Eosinophils # (auto) 0.3 uL; Eosinophils % (auto) 4.6 % (0.0-7.0); Hematocrit 43.4 % (41.0-53.0); Hemoglobin 14.3 g/dL (13.5-17.5); Lymphocytes # (auto) 1.6 uL; Lymphocytes % (auto) 27.5 % (10.0-50.0); Mean Corpuscular Hemoglobin 31.5 pg (28.0-32.0); Mean Corpuscular Volume 95.5 fL (80.0-100.0); Monocytes # (auto) 0.6 uL; Monocytes % (auto) 10.8 % (0.0-12.0); Neutrophils # (auto) 3.2 uL; Neutrophils % (auto) 55.8 % (37.0-80.0); Nucleated Red Blood Cells % 0.1 %; Platelet Count (auto) 206 10^3/uL (140-450); Red Blood Cells 4.54 10^6/uL (4.5-5.90); Red Cell Distribution Width 15.2 % (11.8-14.3); White Blood Cell 5.8 10^3/uL (4.4-10.8)
--- NOTE | 2019-04-11 16:51 | NUR ---
ENTERED ON WRONG PATIENT Addendum: 04/11/19 at 1652 by Carole Dominguez RN RN Amended: Links added.
== END | disposition home or self-care (01) ==
LOC: Rad HDHVI 09:45
PROVIDERS: ATTEND Internal Medicine Cardiovascular Disease
DX: I25.10 Atherosclerotic heart disease of native coronary artery without angina pectoris (principal); I48.91 Unspecified atrial fibrillation; I11.0 Hypertensive heart disease with heart failure; I50.9 Heart failure, unspecified; D64.9 Anemia, unspecified; E29.1 Testicular hypofunction; D51.9 Vitamin B12 deficiency anemia, unspecified; E55.9 Vitamin D deficiency, unspecified; R53.83 Other fatigue
CPT/HCPCS: 36415; 80053; 82306; 82607; 83880; 84403; 85025; 93306; 93701; 96372; G0463; J3420

== ENCOUNTER → 2019-04-16 | Outpatient (CLI) | payer MEDICARE ==
[~2019-04-16] MED LIST changes: -CYANOCOBALAMIN (B-12) 1000 MCG/1 ML VIAL IM ONE; -CYANOCOBALAMIN (B-12) 1000 MCG/1 ML VIAL ONE; +KETOROLAC TROMETH 60MG/2ML VIAL IM ONE; +KETOROLAC TROMETH 60MG/2ML VIAL ONE
[2019-04-16 10:55] VITALS: BP 90/58
--- NOTE | 2019-04-16 10:55 | NUR ---
CHF PT ARRIVED AT THE [facility] CLINIC FOR TX AND FOLLOW UP, A/O X 3 VSS,
--- NOTE | 2019-04-16 11:30 | NUR ---
6 MWT PT TOLERATED WELL UP TO 15 MINUTES FROM LAST TIME.
[2019-04-16 12:07] VITALS: BP 118/65
--- NOTE | 2019-04-16 12:07 | NUR ---
Discharge Instructions See e-MAR for any mediations given with this visit. Patient education given on disease process. Patient verbalized understanding. Previous labs reviewed. Patient discharged in stable condition with after care instructions and follow up appointment. MEDICATIONS TORADOL 60 MG IM X 1 RIGHT GLUTE LOT # [id number] EXP 12/26
== END | disposition home or self-care (01) ==
LOC: CHF HDHVI 11:00
PROVIDERS: ATTEND Internal Medicine Cardiovascular Disease
DX: I11.0 Hypertensive heart disease with heart failure (principal); I50.22 Chronic systolic (congestive) heart failure; G89.29 Other chronic pain; I25.10 Atherosclerotic heart disease of native coronary artery without angina pectoris; I48.91 Unspecified atrial fibrillation
CPT/HCPCS: 94618; 96372; G0463; J1885

== ENCOUNTER → 2019-04-25 | Outpatient (CLI) | payer MEDICARE ==
[~2019-04-25] MED LIST changes: -KETOROLAC TROMETH 60MG/2ML VIAL IM ONE; -KETOROLAC TROMETH 60MG/2ML VIAL ONE
[2019-04-25 12:05] VITALS: BP 101/63
--- NOTE | 2019-04-25 12:05 | NUR ---
REPORTS ONGOING PAIN IN LEFT ANTERIOR CHEST WALL S/P FALL AT HOME APPROXIMATELY ONE WEEK AGO. PT REPORTS THAT HE DID NOT SEEK TREATMENT AT INITIAL INJURY BUT THAT PAIN SEEMS TO BE ONGOING LONGER THAN USUAL. REPORTS ANTERIOR CHEST WALL PAIN WITH STRETCHING LEFT ARM. SENT FOR CXR. Discharge Instructions See e-MAR for any mediations given with this visit. Patient education given on disease process. Patient verbalized understanding. Previous labs reviewed. Patient discharged in stable condition with after care instructions and follow up appointment.
== END | disposition home or self-care (01) ==
LOC: CHF HDHVI 10:57
PROVIDERS: ATTEND Internal Medicine Cardiovascular Disease
DX: M48.56XA Collapsed vertebra, not elsewhere classified, lumbar region, initial encounter for fracture (principal); R07.89 Other chest pain
CPT/HCPCS: 71046; G0463

== ENCOUNTER → 2019-06-16 | Outpatient (CLI) | payer MEDICARE | END | disposition home or self-care (01) | LOC: LAB 13:05 | PROVIDERS: ATTEND Internal Medicine | DX: E03.9 Hypothyroidism, unspecified (principal); I11.0 Hypertensive heart disease with heart failure; I50.9 Heart failure, unspecified | CPT/HCPCS: 36415; 83880; 84132; 84439; 84443 ==

== ENCOUNTER → 2019-07-30 | Outpatient (CLI) | payer MEDICARE ==
[~2019-07-30] MED LIST changes: +CYANOCOBALAMIN (B-12) 1000 MCG/1 ML VIAL IM ONE; +CYANOCOBALAMIN (B-12) 1000 MCG/1 ML VIAL ONE
--- NOTE | 2019-07-30 11:15 | NUR ---
CHF PT ARRIVED AT [facility] FOR TX AND F/U. A/O X 4 0 DISTRESS VSS
[2019-07-30 12:41] VITALS: BP 93/66
--- NOTE | 2019-07-30 12:41 | NUR ---
Discharge Instructions See e-MAR for any mediations given with this visit. Patient education given on disease process. Patient verbalized understanding. Previous labs reviewed. Patient discharged in stable condition with after care instructions and follow up appointment. MEDICATIONS VITAMIN B12 IM
[2019-07-30 15:54] LABS: Basophils # (auto) 0.1 uL; Basophils % (auto) 1.1 % (0.0-2.0); Eosinophils # (auto) 0.2 uL; Eosinophils % (auto) 3.9 % (0.0-7.0); Hematocrit 44.9 % (41.0-53.0); Hemoglobin 14.8 g/dL (13.5-17.5); Lymphocytes % (auto) 33.2 % (10.0-50.0); Mean Corpuscular Volume 97.1 fL (80.0-100.0); Monocytes # (auto) 0.9 uL; Monocytes % (auto) 14.9 % (0.0-12.0); Neutrophils # (auto) 2.8 uL; Neutrophils % (auto) 46.9 % (37.0-80.0); Platelet Count (auto) 218 10^3/uL (140-450); Red Blood Cells 4.63 10^6/uL (4.5-5.90); Red Cell Distribution Width 14.6 % (11.8-14.3)
[2019-07-30 16:07] LABS: Albumin 4.1 g/dL (3.4-5.0); BUN/Creatinine Ratio 16.5; Potassium 4.3 mmol/L (3.5-5.1)
[2019-07-30 16:09] LABS: Bilirubin, Total 0.3 mg/dL (0.2-1.0); Total Protein 7.7 g/dL (6.4-8.2)
[2019-07-30 16:11] LABS: Prostate Specific Antigen 0.38 ng/mL (0.0-4.0)
== END | disposition home or self-care (01) ==
LOC: CHF HDHVI 10:36
PROVIDERS: ATTEND Internal Medicine Cardiovascular Disease
DX: I11.0 Hypertensive heart disease with heart failure (principal); I50.9 Heart failure, unspecified; I27.21 Secondary pulmonary arterial hypertension; K90.9 Intestinal malabsorption, unspecified; C61 Malignant neoplasm of prostate; E29.1 Testicular hypofunction; R53.83 Other fatigue; E03.9 Hypothyroidism, unspecified; Z79.899 Other long term (current) drug therapy
CPT/HCPCS: 36415; 80053; 82306; 82607; 83036; 84153; 84403; 85025; 93701; 94618; 96372; G0463; J3420

== ENCOUNTER → 2019-11-05 | Outpatient (CLI) | payer MEDICARE ==
[~2019-11-05] MED LIST changes: -CYANOCOBALAMIN (B-12) 1000 MCG/1 ML VIAL IM ONE; -CYANOCOBALAMIN (B-12) 1000 MCG/1 ML VIAL ONE
[2019-11-05 09:26] VITALS: BP 105/60
[2019-11-05 10:22] LABS: Basophils # (auto) 0 uL; Basophils % (auto) 0.4 % (0.0-2.0); Eosinophils # (auto) 0.5 uL; Eosinophils % (auto) 4.4 % (0.0-7.0); Hematocrit 41.8 % (41.0-53.0); Hemoglobin 13.9 g/dL (13.5-17.5); Lymphocytes # (auto) 1.4 uL; Lymphocytes % (auto) 13.3 % (10.0-50.0); Mean Corpuscular Hemoglobin 31.6 pg (28.0-32.0); Mean Corpuscular Hgb Conc. 33.3 g/dL (32.0-36.0); Monocytes % (auto) 9.4 % (0.0-12.0); Neutrophils # (auto) 7.6 uL; Neutrophils % (auto) 72.5 % (37.0-80.0); Platelet Count (auto) 231 10^3/uL (140-450); Red Cell Distribution Width 15.2 % (11.8-14.3); White Blood Cell 10.4 10^3/uL (4.4-10.8)
[2019-11-05 10:33] LABS: Albumin 3.5 g/dL (3.4-5.0); Magnesium 2.3 mg/dL (1.6-2.6); Potassium 4.3 mmol/L (3.5-5.1)
[2019-11-05 10:36] LABS: BUN/Creatinine Ratio 21.3; Bilirubin, Total 0.3 mg/dL (0.2-1.0); Total Protein 7.2 g/dL (6.4-8.2)
== END | disposition home or self-care (01) ==
LOC: CHF HDHVI 09:22
PROVIDERS: ATTEND Internal Medicine Cardiovascular Disease
DX: J02.9 Acute pharyngitis, unspecified (principal); R05 Cough; I50.9 Heart failure, unspecified; M43.8X5 Other specified deforming dorsopathies, thoracolumbar region; Z95.810 Presence of automatic (implantable) cardiac defibrillator; M85.80 Other specified disorders of bone density and structure, unspecified site
CPT/HCPCS: 36415; 71046; 80053; 83735; 83880; 85025; G0463

== ENCOUNTER → 2019-11-19 | Outpatient (CLI) | payer MEDICARE | END | disposition home or self-care (01) | LOC: Rad HDHVI 13:10 | PROVIDERS: ATTEND Internal Medicine Cardiovascular Disease | DX: I73.9 Peripheral vascular disease, unspecified (principal) | CPT/HCPCS: 93925 ==

== ENCOUNTER → 2020-02-18 | Outpatient (CLI) | payer MEDICARE ==
[~2020-02-18] VITALS: Ht 177.8 cm; Wt 94.3 kg
== END | disposition home or self-care (01) ==
LOC: Rad HDHVI 13:05
PROVIDERS: ATTEND Internal Medicine Cardiovascular Disease
DX: I11.0 Hypertensive heart disease with heart failure (principal); I50.9 Heart failure, unspecified; R79.1 Abnormal coagulation profile; I25.10 Atherosclerotic heart disease of native coronary artery without angina pectoris; I25.5 Ischemic cardiomyopathy; I25.2 Old myocardial infarction; E78.00 Pure hypercholesterolemia, unspecified; R07.89 Other chest pain; Z95.1 Presence of aortocoronary bypass graft; Z95.0 Presence of cardiac pacemaker; Z82.49 Family history of ischemic heart disease and other diseases of the circulatory system
CPT/HCPCS: 93306

== ENCOUNTER → 2020-06-25 | Outpatient (CLI) | payer MEDICARE ==
[~2020-06-25] MED LIST changes: -MULT-569 PO; +MULT1TAB28 PO
== END | disposition home or self-care (01) ==
LOC: Rad HDHVI 11:07
PROVIDERS: ATTEND Internal Medicine Cardiovascular Disease
DX: R00.2 Palpitations (principal); I25.5 Ischemic cardiomyopathy; Z95.1 Presence of aortocoronary bypass graft
CPT/HCPCS: 93306

== ENCOUNTER → 2020-07-02 | Outpatient (CLI) | payer MEDICARE ==
[2020-07-02 12:37] LABS: Potassium 4.4 mmol/L (3.5-5.1)
[2020-07-02 12:38] LABS: Urine Blood Negative /uL (Negative); Urine Specific Gravity 1.006 (1.001-1.035)
[2020-07-02 12:40] LABS: Basophils # (auto) 0 10 ^3/uL (0-0.2); Basophils % (auto) 0.5 % (0.0-2.0); Eosinophils # (auto) 0.2 10 ^3/uL (0-0.8); Eosinophils % (auto) 2.9 % (0.0-7.0); Hematocrit 45.6 % (41.0-53.0); Hemoglobin 15.7 g/dL (13.5-17.5); Lymphocytes # (auto) 1.7 10 ^3/uL (0.4-5.4); Lymphocytes % (auto) 21.7 % (10.0-50.0); Mean Corpuscular Hemoglobin 32.2 pg (28.0-32.0); Mean Corpuscular Hgb Conc. 34.5 g/dL (32.0-36.0); Mean Corpuscular Volume 93.4 fL (80.0-100.0); Monocytes # (auto) 0.9 10 ^3/uL (0-1.3); Monocytes % (auto) 11.4 % (0.0-12.0); Neutrophils % (auto) 63.5 % (37.0-80.0); Nucleated Red Blood Cells % 0.1 %; Platelet Count (auto) 304 10^3/uL (140-450); Red Blood Cells 4.88 10^6/uL (4.5-5.90); Red Cell Distribution Width 14.8 % (11.8-14.3); White Blood Cell 7.8 10^3/uL (4.4-10.8)
[2020-07-02 12:48] LABS: Free T4 (Free Thyroxine) 1.43 ng/dL (0.89-1.76)
[2020-07-02 12:49] LABS: Albumin 3.8 g/dL (3.4-5.0); BUN/Creatinine Ratio 15.5; Bilirubin, Total 0.4 mg/dL (0.2-1.0); Calcium 9.4 mg/dL (8.5-10.1); Total Protein 7.9 g/dL (6.4-8.2)
[2020-07-02 12:52] LABS: Prostate Specific Antigen 4.56 ng/mL (0.0-4.0)
== END | disposition home or self-care (01) ==
LOC: LAB 08:58
PROVIDERS: ATTEND Internal Medicine Cardiovascular Disease
DX: C61 Malignant neoplasm of prostate (principal); D51.3 Other dietary vitamin B12 deficiency anemia; I10 Essential (primary) hypertension; E11.9 Type 2 diabetes mellitus without complications; E55.9 Vitamin D deficiency, unspecified; D64.9 Anemia, unspecified; R00.2 Palpitations; R53.1 Weakness; R30.0 Dysuria
CPT/HCPCS: 36415; 80053; 80061; 81003; 82306; 82607; 83036; 84153; 84154; 84403; 84439; 84443; 85025

== ENCOUNTER → 2020-07-13 | Outpatient (CLI) | payer MEDICARE ==
[~2020-07-13] VITALS: Ht 177.8 cm; Wt 90.3 kg
== END | disposition home or self-care (01) ==
LOC: Rad HDHVI 08:33
PROVIDERS: ATTEND Internal Medicine Cardiovascular Disease
DX: I50.43 Acute on chronic combined systolic (congestive) and diastolic (congestive) heart failure (principal); I25.10 Atherosclerotic heart disease of native coronary artery without angina pectoris; I11.9 Hypertensive heart disease without heart failure; E78.5 Hyperlipidemia, unspecified; I42.8 Other cardiomyopathies; R07.89 Other chest pain; I25.2 Old myocardial infarction; R06.02 Shortness of breath; Z95.0 Presence of cardiac pacemaker; Z95.1 Presence of aortocoronary bypass graft; Z82.49 Family history of ischemic heart disease and other diseases of the circulatory system
CPT/HCPCS: 78452; 93017; 96374; A9500

== ENCOUNTER → 2020-10-14 | Outpatient (CLI) | payer MEDICARE ==
[2020-10-14 15:45] VITALS: BP 107/69
[2020-10-14 16:30] VITALS: BP 99/68
== END | disposition home or self-care (01) ==
LOC: CHF HDHVI 15:09
PROVIDERS: ATTEND Internal Medicine Cardiovascular Disease
DX: I25.718 Atherosclerosis of autologous vein coronary artery bypass graft(s) with other forms of angina pectoris (principal); I25.5 Ischemic cardiomyopathy; I50.23 Acute on chronic systolic (congestive) heart failure; R06.02 Shortness of breath; J44.9 Chronic obstructive pulmonary disease, unspecified; Z98.61 Coronary angioplasty status
CPT/HCPCS: G0166

== ENCOUNTER → 2020-10-15 | Outpatient (CLI) | payer MEDICARE ==
[2020-10-15 15:29] VITALS: BP 99/66
[2020-10-15 16:07] VITALS: BP 107/71
== END | disposition home or self-care (01) ==
LOC: CHF HDHVI 14:54
PROVIDERS: ATTEND Internal Medicine Cardiovascular Disease
DX: I25.718 Atherosclerosis of autologous vein coronary artery bypass graft(s) with other forms of angina pectoris (principal); I25.5 Ischemic cardiomyopathy; I50.23 Acute on chronic systolic (congestive) heart failure; J44.9 Chronic obstructive pulmonary disease, unspecified; R06.02 Shortness of breath; Z98.61 Coronary angioplasty status
CPT/HCPCS: G0166

== ENCOUNTER → 2020-10-18 | Outpatient (CLI) | payer MEDICARE ==
[2020-10-18 15:45] VITALS: BP 111/67
[2020-10-18 16:40] VITALS: BP 103/68
== END | disposition home or self-care (01) ==
LOC: CHF HDHVI 15:15
PROVIDERS: ATTEND Internal Medicine Cardiovascular Disease
DX: I25.718 Atherosclerosis of autologous vein coronary artery bypass graft(s) with other forms of angina pectoris (principal); I25.5 Ischemic cardiomyopathy; I50.23 Acute on chronic systolic (congestive) heart failure; J44.9 Chronic obstructive pulmonary disease, unspecified; R06.02 Shortness of breath; Z98.61 Coronary angioplasty status
CPT/HCPCS: G0166

== ENCOUNTER → 2020-10-19 | Outpatient (CLI) | payer MEDICARE ==
[2020-10-19 15:39] VITALS: BP 102/64
[2020-10-19 16:21] VITALS: BP 116/72
== END | disposition home or self-care (01) ==
LOC: CHF HDHVI 15:05
PROVIDERS: ATTEND Internal Medicine Cardiovascular Disease
DX: I25.718 Atherosclerosis of autologous vein coronary artery bypass graft(s) with other forms of angina pectoris (principal); I25.5 Ischemic cardiomyopathy; I50.23 Acute on chronic systolic (congestive) heart failure; J44.9 Chronic obstructive pulmonary disease, unspecified; R06.02 Shortness of breath; Z98.61 Coronary angioplasty status
CPT/HCPCS: G0166

== ENCOUNTER → 2020-10-20 | Outpatient (CLI) | payer MEDICARE ==
[2020-10-20 15:31] VITALS: BP 112/66
[2020-10-20 16:14] VITALS: BP 102/67
== END | disposition home or self-care (01) ==
LOC: CHF HDHVI 15:04
PROVIDERS: ATTEND Internal Medicine Cardiovascular Disease
DX: I25.718 Atherosclerosis of autologous vein coronary artery bypass graft(s) with other forms of angina pectoris (principal); I25.5 Ischemic cardiomyopathy; I50.23 Acute on chronic systolic (congestive) heart failure; J44.9 Chronic obstructive pulmonary disease, unspecified; R06.02 Shortness of breath; I42.0 Dilated cardiomyopathy; Z98.61 Coronary angioplasty status
CPT/HCPCS: G0166

== ENCOUNTER → 2020-10-22 | Outpatient (CLI) | payer MEDICARE ==
[2020-10-22 15:58] VITALS: BP 115/67
[2020-10-22 16:33] VITALS: BP 110/69
== END | disposition home or self-care (01) ==
LOC: CHF HDHVI 15:05
PROVIDERS: ATTEND Internal Medicine Cardiovascular Disease
DX: I25.718 Atherosclerosis of autologous vein coronary artery bypass graft(s) with other forms of angina pectoris (principal); I25.5 Ischemic cardiomyopathy; I50.23 Acute on chronic systolic (congestive) heart failure; R06.02 Shortness of breath; J44.9 Chronic obstructive pulmonary disease, unspecified; Z98.61 Coronary angioplasty status
CPT/HCPCS: G0166

== ENCOUNTER → 2020-10-29 | Outpatient (CLI) | payer MEDICARE | END | disposition home or self-care (01) | LOC: Rad HDHVI 08:31 | PROVIDERS: ATTEND Internal Medicine Cardiovascular Disease | DX: R07.81 Pleurodynia (principal); I51.7 Cardiomegaly; Z95.810 Presence of automatic (implantable) cardiac defibrillator; Z87.81 Personal history of (healed) traumatic fracture | CPT/HCPCS: 71100 ==

== ENCOUNTER → 2020-11-17 | Outpatient (CLI) | payer MEDICARE ==
[2020-11-17 15:35] VITALS: BP 85/59
[2020-11-17 16:21] VITALS: BP 104/68
== END | disposition home or self-care (01) ==
LOC: CHF HDHVI 15:16
PROVIDERS: ATTEND Internal Medicine Cardiovascular Disease
DX: I25.718 Atherosclerosis of autologous vein coronary artery bypass graft(s) with other forms of angina pectoris (principal); I25.5 Ischemic cardiomyopathy; I50.23 Acute on chronic systolic (congestive) heart failure; R60.9 Edema, unspecified; R06.02 Shortness of breath; I42.0 Dilated cardiomyopathy; J44.9 Chronic obstructive pulmonary disease, unspecified; Z98.61 Coronary angioplasty status
CPT/HCPCS: G0166

== ENCOUNTER → 2020-11-22 | Outpatient (CLI) | payer MEDICARE ==
[2020-11-22 15:52] VITALS: BP 94/77
[2020-11-22 16:27] VITALS: BP 105/64
== END | disposition home or self-care (01) ==
LOC: CHF HDHVI 15:12
PROVIDERS: ATTEND Internal Medicine Cardiovascular Disease
DX: I25.718 Atherosclerosis of autologous vein coronary artery bypass graft(s) with other forms of angina pectoris (principal); I50.23 Acute on chronic systolic (congestive) heart failure; I25.5 Ischemic cardiomyopathy; J44.9 Chronic obstructive pulmonary disease, unspecified; R06.02 Shortness of breath; Z98.61 Coronary angioplasty status
CPT/HCPCS: G0166

== ENCOUNTER → 2020-11-25 | Outpatient (CLI) | payer MEDICARE ==
[2020-11-25 15:34] VITALS: BP 112/68
[2020-11-25 16:19] VITALS: BP 106/67
== END | disposition home or self-care (01) ==
LOC: CHF HDHVI 15:11
PROVIDERS: ATTEND Internal Medicine Cardiovascular Disease
DX: I25.718 Atherosclerosis of autologous vein coronary artery bypass graft(s) with other forms of angina pectoris (principal); I50.23 Acute on chronic systolic (congestive) heart failure; I25.5 Ischemic cardiomyopathy; J44.9 Chronic obstructive pulmonary disease, unspecified; R06.02 Shortness of breath; Z98.61 Coronary angioplasty status
CPT/HCPCS: G0166

== ENCOUNTER → 2020-11-26 | Outpatient (CLI) | payer MEDICARE ==
[2020-11-26 16:31] VITALS: BP 99/60
[2020-11-26 16:39] VITALS: BP 104/62
== END | disposition home or self-care (01) ==
LOC: CHF HDHVI 15:02
PROVIDERS: ATTEND Internal Medicine Cardiovascular Disease
DX: I25.718 Atherosclerosis of autologous vein coronary artery bypass graft(s) with other forms of angina pectoris (principal); I25.5 Ischemic cardiomyopathy; I50.23 Acute on chronic systolic (congestive) heart failure; J44.9 Chronic obstructive pulmonary disease, unspecified; R06.02 Shortness of breath; Z98.61 Coronary angioplasty status
CPT/HCPCS: G0166

== ENCOUNTER → 2020-11-29 | Outpatient (CLI) | payer MEDICARE ==
[2020-11-29 16:46] VITALS: BP 97/63
[2020-11-29 16:52] VITALS: BP 101/64
== END | disposition home or self-care (01) ==
LOC: CHF HDHVI 15:06
PROVIDERS: ATTEND Internal Medicine Cardiovascular Disease
DX: I25.718 Atherosclerosis of autologous vein coronary artery bypass graft(s) with other forms of angina pectoris (principal); I50.23 Acute on chronic systolic (congestive) heart failure; I25.5 Ischemic cardiomyopathy; R60.9 Edema, unspecified; R06.02 Shortness of breath; I42.0 Dilated cardiomyopathy; J44.9 Chronic obstructive pulmonary disease, unspecified; Z98.61 Coronary angioplasty status
CPT/HCPCS: G0166

== ENCOUNTER → 2020-12-01 | Outpatient (CLI) | payer MEDICARE ==
[2020-12-01 15:25] VITALS: BP 100/61
[2020-12-01 16:14] VITALS: BP 105/61
== END | disposition home or self-care (01) ==
LOC: CHF HDHVI 14:59
PROVIDERS: ATTEND Internal Medicine Cardiovascular Disease
DX: I25.718 Atherosclerosis of autologous vein coronary artery bypass graft(s) with other forms of angina pectoris (principal); I50.23 Acute on chronic systolic (congestive) heart failure; I25.5 Ischemic cardiomyopathy; I42.0 Dilated cardiomyopathy; J44.9 Chronic obstructive pulmonary disease, unspecified; R60.9 Edema, unspecified; R06.02 Shortness of breath; Z98.61 Coronary angioplasty status
CPT/HCPCS: G0166

== ENCOUNTER → 2020-12-02 | Outpatient (CLI) | payer MEDICARE ==
[2020-12-02 15:48] VITALS: BP 105/64
[2020-12-02 16:29] VITALS: BP 111/69
== END | disposition home or self-care (01) ==
LOC: CHF HDHVI 15:02
PROVIDERS: ATTEND Internal Medicine Cardiovascular Disease
DX: I25.718 Atherosclerosis of autologous vein coronary artery bypass graft(s) with other forms of angina pectoris (principal); I25.5 Ischemic cardiomyopathy; I50.23 Acute on chronic systolic (congestive) heart failure; Z98.61 Coronary angioplasty status; R60.9 Edema, unspecified; R06.02 Shortness of breath; I42.0 Dilated cardiomyopathy; J44.9 Chronic obstructive pulmonary disease, unspecified
CPT/HCPCS: G0166

== ENCOUNTER → 2020-12-03 | Outpatient (CLI) | payer MEDICARE ==
[2020-12-03 16:27] VITALS: BP 100/47
[2020-12-03 16:34] VITALS: BP 107/69
== END | disposition home or self-care (01) ==
LOC: CHF HDHVI 15:00
PROVIDERS: ATTEND Internal Medicine Cardiovascular Disease
DX: I25.718 Atherosclerosis of autologous vein coronary artery bypass graft(s) with other forms of angina pectoris (principal); I50.23 Acute on chronic systolic (congestive) heart failure; I25.5 Ischemic cardiomyopathy; R06.02 Shortness of breath; J44.9 Chronic obstructive pulmonary disease, unspecified; Z98.61 Coronary angioplasty status
CPT/HCPCS: G0166

== ENCOUNTER → 2020-12-06 | Outpatient (CLI) | payer MEDICARE ==
[2020-12-06 15:42] VITALS: BP 108/62
[2020-12-06 16:19] VITALS: BP 99/59
== END | disposition home or self-care (01) ==
LOC: CHF HDHVI 15:16
PROVIDERS: ATTEND Internal Medicine Cardiovascular Disease
DX: I25.718 Atherosclerosis of autologous vein coronary artery bypass graft(s) with other forms of angina pectoris (principal); I25.5 Ischemic cardiomyopathy; I50.23 Acute on chronic systolic (congestive) heart failure; J44.9 Chronic obstructive pulmonary disease, unspecified; R06.02 Shortness of breath; Z98.61 Coronary angioplasty status
CPT/HCPCS: G0166

== ENCOUNTER → 2020-12-08 | Outpatient (CLI) | payer MEDICARE ==
[2020-12-08 15:36] VITALS: BP 112/68
[2020-12-08 16:19] VITALS: BP 107/69
== END | disposition home or self-care (01) ==
LOC: CHF HDHVI 14:59
PROVIDERS: ATTEND Internal Medicine Cardiovascular Disease
DX: I25.718 Atherosclerosis of autologous vein coronary artery bypass graft(s) with other forms of angina pectoris (principal); I50.23 Acute on chronic systolic (congestive) heart failure; I25.5 Ischemic cardiomyopathy; R06.02 Shortness of breath; J44.9 Chronic obstructive pulmonary disease, unspecified; Z98.61 Coronary angioplasty status
CPT/HCPCS: G0166

== ENCOUNTER → 2020-12-13 | Outpatient (CLI) | payer MEDICARE ==
[2020-12-13 15:29] VITALS: BP 92/67
[2020-12-13 15:58] VITALS: BP 113/72
== END | disposition home or self-care (01) ==
LOC: Rad HDHVI 13:56
PROVIDERS: ATTEND Internal Medicine Cardiovascular Disease
DX: I25.718 Atherosclerosis of autologous vein coronary artery bypass graft(s) with other forms of angina pectoris (principal); I25.5 Ischemic cardiomyopathy; I50.23 Acute on chronic systolic (congestive) heart failure; R06.02 Shortness of breath; J44.9 Chronic obstructive pulmonary disease, unspecified; I51.7 Cardiomegaly; R07.81 Pleurodynia; Z98.61 Coronary angioplasty status; Z95.0 Presence of cardiac pacemaker
CPT/HCPCS: 71100; G0166

== ENCOUNTER → 2020-12-15 | Outpatient (CLI) | payer MEDICARE ==
[2020-12-15 15:37] VITALS: BP 114/66
[2020-12-15 16:23] VITALS: BP 95/65
== END | disposition home or self-care (01) ==
LOC: CHF HDHVI 15:02
PROVIDERS: ATTEND Internal Medicine Cardiovascular Disease
DX: I25.718 Atherosclerosis of autologous vein coronary artery bypass graft(s) with other forms of angina pectoris (principal); I50.23 Acute on chronic systolic (congestive) heart failure; I25.5 Ischemic cardiomyopathy; J44.9 Chronic obstructive pulmonary disease, unspecified; R06.02 Shortness of breath; Z98.61 Coronary angioplasty status
CPT/HCPCS: G0166

== ENCOUNTER → 2021-03-30 | Outpatient (CLI) | payer MEDICARE ==
[2021-03-30 15:00] LABS: Urine Blood Negative /uL (Negative); Urine Specific Gravity 1.009 (1.001-1.035)
[2021-03-30 15:01] LABS: Basophils # (auto) 0 10 ^3/uL (0-0.2); Basophils % (auto) 0.4 % (0.0-2.0); Eosinophils # (auto) 0 10 ^3/uL (0-0.8); Eosinophils % (auto) 0.2 % (0.0-7.0); Hematocrit 37.9 % (41.0-53.0); Hemoglobin 12.6 g/dL (13.5-17.5); Lymphocytes # (auto) 1.2 10 ^3/uL (0.4-5.4); Lymphocytes % (auto) 9.9 % (10.0-50.0); Mean Corpuscular Hemoglobin 28.9 pg (28.0-32.0); Mean Corpuscular Hgb Conc. 33.2 g/dL (32.0-36.0); Monocytes # (auto) 1.4 10 ^3/uL (0-1.3); Neutrophils # (auto) 9.3 10 ^3/uL (1.6-8.6); Neutrophils % (auto) 77.5 % (37.0-80.0); Platelet Count (auto) 385 10^3/uL (140-450); Red Blood Cells 4.36 10^6/uL (4.5-5.90); Red Cell Distribution Width 19.1 % (11.8-14.3)
[2021-03-30 15:09] LABS: Albumin 3.3 g/dL (3.4-5.0); Calcium 9.3 mg/dL (8.5-10.1); Potassium 4.9 mmol/L (3.5-5.1)
[2021-03-30 15:12] LABS: BUN/Creatinine Ratio 16.2; Bilirubin, Direct 0.2 mg/dL (0-0.2); Bilirubin, Total 0.5 mg/dL (0.2-1.0); Total Protein 7.4 g/dL (6.4-8.2)
== END | disposition home or self-care (01) ==
LOC: Rad HDHVI 12:21
PROVIDERS: ATTEND Internal Medicine Cardiovascular Disease
DX: C61 Malignant neoplasm of prostate (principal); D51.3 Other dietary vitamin B12 deficiency anemia; E11.9 Type 2 diabetes mellitus without complications; E55.9 Vitamin D deficiency, unspecified; D64.9 Anemia, unspecified; R00.2 Palpitations; R53.1 Weakness; R30.0 Dysuria; I11.0 Hypertensive heart disease with heart failure; I50.23 Acute on chronic systolic (congestive) heart failure
CPT/HCPCS: 36415; 80048; 80061; 80076; 81003; 83036; 83880; 84153; 84403; 84443; 85025; 85049

== ENCOUNTER → 2021-04-06 | Outpatient (CLI) | payer MEDICARE | END | disposition home or self-care (01) | LOC: Rad HDHVI 11:05 | PROVIDERS: ATTEND Internal Medicine Cardiovascular Disease | DX: R00.2 Palpitations (principal); R07.89 Other chest pain | CPT/HCPCS: 93306 ==

== ENCOUNTER → 2021-05-04 | Outpatient (CLI) | payer MEDICARE ==
[2021-05-04] VITALS (9 sets, daily range): BP systolic 102–128; BP diastolic 50–77
[~2021-05-04] MED LIST changes: +CYANOCOBALAMIN (B-12) 1000 MCG/1 ML VIAL IM ONE; +CYANOCOBALAMIN (B-12) 1000 MCG/1 ML VIAL ONE; +DOBUTamine 1000MCG/ML 250 ML IV ONE; +FUROSEMIDE 100 MG/10ML VIAL IV ONE; +FUROSEMIDE 40 MG/4 ML VIAL ONE; +POTASSIUM CHL 10 Meq TABLET PO ONE; +POTASSIUM CHL 20 Meq TABLET PO ONE
[2021-05-04 11:42] LABS: Basophils # (auto) 0.1 10 ^3/uL (0-0.2); Basophils % (auto) 0.9 % (0.0-2.0); Eosinophils # (auto) 0.1 10 ^3/uL (0-0.8); Eosinophils % (auto) 1.6 % (0.0-7.0); Hematocrit 38.2 % (41.0-53.0); Hemoglobin 12.7 g/dL (13.5-17.5); Lymphocytes # (auto) 1.6 10 ^3/uL (0.4-5.4); Lymphocytes % (auto) 23.5 % (10.0-50.0); Mean Corpuscular Hemoglobin 28.9 pg (28.0-32.0); Mean Corpuscular Hgb Conc. 33.1 g/dL (32.0-36.0); Mean Corpuscular Volume 87.4 fL (80.0-100.0); Monocytes # (auto) 0.9 10 ^3/uL (0-1.3); Monocytes % (auto) 12.2 % (0.0-12.0); Neutrophils # (auto) 4.3 10 ^3/uL (1.6-8.6); Neutrophils % (auto) 61.8 % (37.0-80.0); Nucleated Red Blood Cells % 0.1 %; Red Blood Cells 4.38 10^6/uL (4.5-5.90); Red Cell Distribution Width 18.9 % (11.8-14.3)
[2021-05-04 11:46] LABS: BUN/Creatinine Ratio 20.7; Calcium 9.1 mg/dL (8.5-10.1); Magnesium 2.3 mg/dL (1.6-2.6); Potassium 4.2 mmol/L (3.5-5.1)
[2021-05-04 13:38] LABS: Albumin 3.3 g/dL (3.4-5.0); Bilirubin, Total 0.2 mg/dL (0.2-1.0); Total Protein 7.1 g/dL (6.4-8.2)
== END | disposition home or self-care (01) ==
LOC: Rad HDHVI 09:07
PROVIDERS: ATTEND Internal Medicine Cardiovascular Disease
DX: I11.0 Hypertensive heart disease with heart failure (principal); I50.23 Acute on chronic systolic (congestive) heart failure; R94.31 Abnormal electrocardiogram [ECG] [EKG]; E11.9 Type 2 diabetes mellitus without complications; I25.10 Atherosclerotic heart disease of native coronary artery without angina pectoris; I25.2 Old myocardial infarction; E78.5 Hyperlipidemia, unspecified; M19.042 Primary osteoarthritis, left hand; R53.83 Other fatigue; Z95.1 Presence of aortocoronary bypass graft; Z85.46 Personal history of malignant neoplasm of prostate; Z79.899 Other long term (current) drug therapy; Z95.810 Presence of automatic (implantable) cardiac defibrillator
CPT/HCPCS: 36415; 71046; 80053; 82306; 82607; 83735; 83880; 85025; 93005; 96365; 96366; 96372; 96375; G0463; J1250; J1940; J3420

== ENCOUNTER → 2021-05-06 | Outpatient (CLI) | payer MEDICARE ==
[~2021-05-06] MED LIST changes: +BACITRACIN TOP OINT 1 UD PKG TOP ONE; +BACITRACIN-POLYMYXIN B TOPICAL OINT UD TOP ONE; -CYANOCOBALAMIN (B-12) 1000 MCG/1 ML VIAL IM ONE; -CYANOCOBALAMIN (B-12) 1000 MCG/1 ML VIAL ONE; -DOBUTamine 1000MCG/ML 250 ML IV ONE; -FUROSEMIDE 100 MG/10ML VIAL IV ONE; -FUROSEMIDE 40 MG/4 ML VIAL ONE; -POTASSIUM CHL 10 Meq TABLET PO ONE; -POTASSIUM CHL 20 Meq TABLET PO ONE
[2021-05-06 12:28] VITALS: BP 97/56
[2021-05-06 13:52] VITALS: BP 97/56
== END | disposition home or self-care (01) ==
LOC: CHF HDHVI 12:48
PROVIDERS: ATTEND Internal Medicine Cardiovascular Disease
DX: M19.042 Primary osteoarthritis, left hand (principal)
CPT/HCPCS: 73130; G0463

== ENCOUNTER → 2021-05-10 | Outpatient (CLI) | payer MEDICARE ==
[2021-05-10] VITALS (9 sets, daily range): BP systolic 94–116; BP diastolic 41–65
[~2021-05-10] MED LIST changes: -BACITRACIN-POLYMYXIN B TOPICAL OINT UD TOP ONE; +DOBUTamine 1000MCG/ML 250 ML IV ONE; +FUROSEMIDE 20 MG/2 ML VIAL IV ONE; +FUROSEMIDE 20 MG/2 ML VIAL ONE; +FUROSEMIDE 40 MG/4 ML VIAL ONE; +POTASSIUM CHL 20 Meq TABLET PO ONE
[2021-05-10 11:31] LABS: Basophils # (auto) 0.1 10 ^3/uL (0-0.2); Basophils % (auto) 0.8 % (0.0-2.0); Eosinophils # (auto) 0.1 10 ^3/uL (0-0.8); Eosinophils % (auto) 1.8 % (0.0-7.0); Hematocrit 36.7 % (41.0-53.0); Hemoglobin 12.4 g/dL (13.5-17.5); Lymphocytes # (auto) 1.7 10 ^3/uL (0.4-5.4); Lymphocytes % (auto) 25.6 % (10.0-50.0); Mean Corpuscular Hemoglobin 29.1 pg (28.0-32.0); Mean Corpuscular Hgb Conc. 33.7 g/dL (32.0-36.0); Mean Corpuscular Volume 86.5 fL (80.0-100.0); Monocytes # (auto) 0.8 10 ^3/uL (0-1.3); Monocytes % (auto) 12.4 % (0.0-12.0); Neutrophils % (auto) 59.4 % (37.0-80.0); Nucleated Red Blood Cells % 0.1 %; Red Blood Cells 4.25 10^6/uL (4.5-5.90); Red Cell Distribution Width 19.2 % (11.8-14.3); White Blood Cell 6.7 10^3/uL (4.4-10.8)
== END | disposition home or self-care (01) ==
LOC: CHF HDHVI 09:01
PROVIDERS: ATTEND Internal Medicine Cardiovascular Disease
DX: I11.0 Hypertensive heart disease with heart failure (principal); I50.23 Acute on chronic systolic (congestive) heart failure; R53.83 Other fatigue; S61.211D Laceration without foreign body of left index finger without damage to nail, subsequent encounter; I25.10 Atherosclerotic heart disease of native coronary artery without angina pectoris; I25.2 Old myocardial infarction; E11.9 Type 2 diabetes mellitus without complications; E78.5 Hyperlipidemia, unspecified; M19.042 Primary osteoarthritis, left hand; Z85.46 Personal history of malignant neoplasm of prostate; Z95.1 Presence of aortocoronary bypass graft; W45.8XXD Other foreign body or object entering through skin, subsequent encounter
CPT/HCPCS: 36415; 82565; 83880; 84132; 84520; 85025; 96365; 96366; 96375; G0463; J1250; J1940

== ENCOUNTER → 2021-05-17 | Outpatient (CLI) | payer MEDICARE ==
[2021-05-17] VITALS (9 sets, daily range): BP systolic 96–118; BP diastolic 45–67
[~2021-05-17] MED LIST changes: -FUROSEMIDE 20 MG/2 ML VIAL IV ONE; -FUROSEMIDE 20 MG/2 ML VIAL ONE; -FUROSEMIDE 40 MG/4 ML VIAL ONE; -POTASSIUM CHL 20 Meq TABLET PO ONE
[2021-05-17 11:36] LABS: Basophils # (auto) 0 10 ^3/uL (0-0.2); Basophils % (auto) 0.7 % (0.0-2.0); Eosinophils # (auto) 0.1 10 ^3/uL (0-0.8); Eosinophils % (auto) 1.7 % (0.0-7.0); Hemoglobin 12.7 g/dL (13.5-17.5); Lymphocytes # (auto) 1.5 10 ^3/uL (0.4-5.4); Lymphocytes % (auto) 23.5 % (10.0-50.0); Mean Corpuscular Hemoglobin 29.2 pg (28.0-32.0); Mean Corpuscular Hgb Conc. 33.4 g/dL (32.0-36.0); Mean Corpuscular Volume 87.4 fL (80.0-100.0); Monocytes # (auto) 0.9 10 ^3/uL (0-1.3); Monocytes % (auto) 14.5 % (0.0-12.0); Neutrophils # (auto) 3.8 10 ^3/uL (1.6-8.6); Neutrophils % (auto) 59.6 % (37.0-80.0); Red Blood Cells 4.35 10^6/uL (4.5-5.90); Red Cell Distribution Width 19.2 % (11.8-14.3); White Blood Cell 6.4 10^3/uL (4.4-10.8)
[2021-05-17 11:44] LABS: BUN/Creatinine Ratio 14.7; Calcium 9.1 mg/dL (8.5-10.1); Magnesium 2.4 mg/dL (1.6-2.6); Potassium 4.4 mmol/L (3.5-5.1)
== END | disposition home or self-care (01) ==
LOC: CHF HDHVI 08:12
PROVIDERS: ATTEND Internal Medicine Cardiovascular Disease
DX: I11.0 Hypertensive heart disease with heart failure (principal); I50.23 Acute on chronic systolic (congestive) heart failure; S61.211D Laceration without foreign body of left index finger without damage to nail, subsequent encounter; I25.10 Atherosclerotic heart disease of native coronary artery without angina pectoris; I25.2 Old myocardial infarction; E78.5 Hyperlipidemia, unspecified; R53.83 Other fatigue; M19.042 Primary osteoarthritis, left hand; Z85.46 Personal history of malignant neoplasm of prostate; Z95.1 Presence of aortocoronary bypass graft; Z95.0 Presence of cardiac pacemaker; W45.8XXD Other foreign body or object entering through skin, subsequent encounter
CPT/HCPCS: 36415; 80048; 83735; 83880; 85025; 96365; 96366; G0463; J1250

== ENCOUNTER → 2021-05-24 | Outpatient (CLI) | payer MEDICARE ==
[2021-05-24] VITALS (9 sets, daily range): BP systolic 93–114; BP diastolic 57–66
[~2021-05-24] MED LIST changes: -BACITRACIN TOP OINT 1 UD PKG TOP ONE
[2021-05-24 12:10] LABS: Potassium 4.8 mmol/L (3.5-5.1)
[2021-05-24 12:28] LABS: Albumin 3.2 g/dL (3.4-5.0); BUN/Creatinine Ratio 16.5; Bilirubin, Total 0.3 mg/dL (0.2-1.0); Calcium 9.3 mg/dL (8.5-10.1); Total Protein 7.4 g/dL (6.4-8.2)
== END | disposition home or self-care (01) ==
LOC: CHF HDHVI 09:12
PROVIDERS: ATTEND Internal Medicine Cardiovascular Disease
DX: I11.0 Hypertensive heart disease with heart failure (principal); I50.23 Acute on chronic systolic (congestive) heart failure; C61 Malignant neoplasm of prostate; I25.10 Atherosclerotic heart disease of native coronary artery without angina pectoris; I25.2 Old myocardial infarction; E78.5 Hyperlipidemia, unspecified; E11.9 Type 2 diabetes mellitus without complications; M19.042 Primary osteoarthritis, left hand; Z79.899 Other long term (current) drug therapy; Z95.810 Presence of automatic (implantable) cardiac defibrillator
CPT/HCPCS: 36415; 80053; 83880; 84153; 96365; 96366; G0463; J1250

== ENCOUNTER → 2021-05-31 | Outpatient (CLI) | payer MEDICARE ==
[2021-05-31] VITALS (9 sets, daily range): BP systolic 86–109; BP diastolic 46–75
[~2021-05-31] MED LIST changes: +CYANOCOBALAMIN (B-12) 1000 MCG/1 ML VIAL IM ONE; +CYANOCOBALAMIN (B-12) 1000 MCG/1 ML VIAL ONE
[2021-05-31 11:55] LABS: Basophils # (auto) 0 10 ^3/uL (0-0.2); Basophils % (auto) 0.8 % (0.0-2.0); Eosinophils # (auto) 0.1 10 ^3/uL (0-0.8); Eosinophils % (auto) 2.2 % (0.0-7.0); Hematocrit 37.7 % (41.0-53.0); Hemoglobin 12.6 g/dL (13.5-17.5); Lymphocytes # (auto) 1.4 10 ^3/uL (0.4-5.4); Lymphocytes % (auto) 22.1 % (10.0-50.0); Mean Corpuscular Hemoglobin 29.5 pg (28.0-32.0); Mean Corpuscular Hgb Conc. 33.5 g/dL (32.0-36.0); Mean Corpuscular Volume 87.9 fL (80.0-100.0); Monocytes # (auto) 0.7 10 ^3/uL (0-1.3); Monocytes % (auto) 10.8 % (0.0-12.0); Neutrophils # (auto) 4.2 10 ^3/uL (1.6-8.6); Neutrophils % (auto) 64.1 % (37.0-80.0); Nucleated Red Blood Cells % 0.1 %; Red Blood Cells 4.29 10^6/uL (4.5-5.90); Red Cell Distribution Width 18.3 % (11.8-14.3); White Blood Cell 6.5 10^3/uL (4.4-10.8)
[2021-05-31 12:02] LABS: Potassium 4.2 mmol/L (3.5-5.1)
== END | disposition home or self-care (01) ==
LOC: CHF HDHVI 09:05
PROVIDERS: ATTEND Internal Medicine Cardiovascular Disease
DX: I11.0 Hypertensive heart disease with heart failure (principal); I50.23 Acute on chronic systolic (congestive) heart failure; I25.10 Atherosclerotic heart disease of native coronary artery without angina pectoris; I25.2 Old myocardial infarction; E11.9 Type 2 diabetes mellitus without complications; E78.5 Hyperlipidemia, unspecified; M19.042 Primary osteoarthritis, left hand; Z79.899 Other long term (current) drug therapy; Z85.46 Personal history of malignant neoplasm of prostate; Z95.810 Presence of automatic (implantable) cardiac defibrillator
CPT/HCPCS: 36415; 82565; 83880; 84132; 84520; 85025; 96365; 96366; 96372; G0463; J1250; J3420

== ENCOUNTER → 2021-07-12 | Outpatient (CLI) | payer MEDICARE ==
[2021-07-12] VITALS (9 sets, daily range): BP systolic 90–119; BP diastolic 50–69
[~2021-07-12] MED LIST changes: -CYANOCOBALAMIN (B-12) 1000 MCG/1 ML VIAL IM ONE; -CYANOCOBALAMIN (B-12) 1000 MCG/1 ML VIAL ONE
[2021-07-12 11:32] LABS: Calcium 9.4 mg/dL (8.5-10.1); Magnesium 2.3 mg/dL (1.6-2.6); Potassium 4.3 mmol/L (3.5-5.1)
[2021-07-12 11:35] LABS: BUN/Creatinine Ratio 20.6
== END | disposition home or self-care (01) ==
LOC: CHF HDHVI 08:59
PROVIDERS: ATTEND Internal Medicine Cardiovascular Disease
DX: I11.0 Hypertensive heart disease with heart failure (principal); I50.23 Acute on chronic systolic (congestive) heart failure; I25.5 Ischemic cardiomyopathy; I25.10 Atherosclerotic heart disease of native coronary artery without angina pectoris; I25.2 Old myocardial infarction; E11.9 Type 2 diabetes mellitus without complications; E78.5 Hyperlipidemia, unspecified; M19.042 Primary osteoarthritis, left hand; Z79.899 Other long term (current) drug therapy; Z87.891 Personal history of nicotine dependence; Z85.46 Personal history of malignant neoplasm of prostate; Z95.810 Presence of automatic (implantable) cardiac defibrillator
CPT/HCPCS: 36415; 80048; 83735; 83880; 94618; 96365; 96366; G0463; J1250

== ENCOUNTER → 2021-07-26 | Outpatient (CLI) | payer MEDICARE ==
[2021-07-26] VITALS (9 sets, daily range): BP systolic 90–111; BP diastolic 46–67
[~2021-07-26] MED LIST changes: +CYANOCOBALAMIN (B-12) 1000 MCG/1 ML VIAL IM ONE; +CYANOCOBALAMIN (B-12) 1000 MCG/1 ML VIAL ONE; +TESTOSTERONE CYPIONATE 200 MG/ML 1ML VIAL IM ONE
[2021-07-26 11:24] LABS: Basophils # (auto) 0 10 ^3/uL (0-0.2); Basophils % (auto) 0.3 % (0.0-2.0); Eosinophils # (auto) 0.1 10 ^3/uL (0-0.8); Eosinophils % (auto) 0.6 % (0.0-7.0); Hematocrit 37.4 % (41.0-53.0); Hemoglobin 12.5 g/dL (13.5-17.5); Lymphocytes % (auto) 10.6 % (10.0-50.0); Mean Corpuscular Hgb Conc. 33.4 g/dL (32.0-36.0); Mean Corpuscular Volume 89.8 fL (80.0-100.0); Monocytes # (auto) 0.9 10 ^3/uL (0-1.3); Monocytes % (auto) 9.1 % (0.0-12.0); Neutrophils # (auto) 7.6 10 ^3/uL (1.6-8.6); Neutrophils % (auto) 79.4 % (37.0-80.0); Red Blood Cells 4.17 10^6/uL (4.5-5.90); Red Cell Distribution Width 17.2 % (11.8-14.3); White Blood Cell 9.6 10^3/uL (4.4-10.8)
[2021-07-26 11:37] LABS: Calcium 9.2 mg/dL (8.5-10.1); Magnesium 2.2 mg/dL (1.6-2.6); Potassium 3.9 mmol/L (3.5-5.1)
[2021-07-26 11:39] LABS: BUN/Creatinine Ratio 18.1
== END | disposition home or self-care (01) ==
LOC: CHF HDHVI 09:02
PROVIDERS: ATTEND Internal Medicine Cardiovascular Disease
DX: I11.0 Hypertensive heart disease with heart failure (principal); I50.23 Acute on chronic systolic (congestive) heart failure; E29.1 Testicular hypofunction; I25.10 Atherosclerotic heart disease of native coronary artery without angina pectoris; I25.2 Old myocardial infarction; M19.042 Primary osteoarthritis, left hand; E11.9 Type 2 diabetes mellitus without complications; Z87.891 Personal history of nicotine dependence; Z95.1 Presence of aortocoronary bypass graft; Z95.810 Presence of automatic (implantable) cardiac defibrillator; Z79.899 Other long term (current) drug therapy
CPT/HCPCS: 36415; 80048; 83735; 83880; 85025; 96365; 96366; 96372; G0463; J1071; J1250; J3420

== ENCOUNTER → 2021-08-30 | Outpatient (CLI) | payer MEDICARE ==
[2021-08-30] VITALS (9 sets, daily range): BP systolic 101–130; BP diastolic 59–73
[~2021-08-30] MED LIST changes: -CYANOCOBALAMIN (B-12) 1000 MCG/1 ML VIAL IM ONE; -CYANOCOBALAMIN (B-12) 1000 MCG/1 ML VIAL ONE; -TESTOSTERONE CYPIONATE 200 MG/ML 1ML VIAL IM ONE
[2021-08-30 11:54] LABS: Potassium 4.5 mmol/L (3.5-5.1)
== END | disposition home or self-care (01) ==
LOC: CHF HDHVI 09:02
PROVIDERS: ATTEND Internal Medicine Cardiovascular Disease
DX: I11.0 Hypertensive heart disease with heart failure (principal); I50.23 Acute on chronic systolic (congestive) heart failure; I25.5 Ischemic cardiomyopathy; I25.10 Atherosclerotic heart disease of native coronary artery without angina pectoris; I25.2 Old myocardial infarction; E11.9 Type 2 diabetes mellitus without complications; E78.5 Hyperlipidemia, unspecified; M19.042 Primary osteoarthritis, left hand; Z79.899 Other long term (current) drug therapy; Z87.891 Personal history of nicotine dependence; Z95.810 Presence of automatic (implantable) cardiac defibrillator; Z85.46 Personal history of malignant neoplasm of prostate
CPT/HCPCS: 36415; 82565; 83880; 84132; 84520; 96365; 96366; G0463; J1250

== ENCOUNTER → 2021-09-06 | Outpatient (CLI) | payer MEDICARE ==
[2021-09-06] VITALS (9 sets, daily range): BP systolic 86–110; BP diastolic 47–71
[~2021-09-06] MED LIST changes: +CYANOCOBALAMIN (B-12) 1000 MCG/1 ML VIAL IM ONE; +CYANOCOBALAMIN (B-12) 1000 MCG/1 ML VIAL ONE; +TESTOSTERONE CYPIONATE 200 MG/ML 1ML VIAL IM ONE
[2021-09-06 11:51] LABS: Basophils # (auto) 0.1 10 ^3/uL (0-0.2); Basophils % (auto) 0.7 % (0.0-2.0); Eosinophils # (auto) 0.2 10 ^3/uL (0-0.8); Eosinophils % (auto) 2.2 % (0.0-7.0); Hematocrit 39.6 % (41.0-53.0); Hemoglobin 13.4 g/dL (13.5-17.5); Lymphocytes # (auto) 1.5 10 ^3/uL (0.4-5.4); Lymphocytes % (auto) 19.4 % (10.0-50.0); Mean Corpuscular Hemoglobin 31.1 pg (28.0-32.0); Mean Corpuscular Hgb Conc. 33.9 g/dL (32.0-36.0); Mean Corpuscular Volume 91.6 fL (80.0-100.0); Monocytes # (auto) 0.7 10 ^3/uL (0-1.3); Monocytes % (auto) 8.7 % (0.0-12.0); Neutrophils # (auto) 5.2 10 ^3/uL (1.6-8.6); Red Blood Cells 4.33 10^6/uL (4.5-5.90); Red Cell Distribution Width 18.6 % (11.8-14.3); White Blood Cell 7.6 10^3/uL (4.4-10.8)
[2021-09-06 11:56] LABS: Potassium 4.1 mmol/L (3.5-5.1)
[2021-09-06 12:07] LABS: BUN/Creatinine Ratio 21.1; Calcium 8.7 mg/dL (8.5-10.1); Magnesium 2.2 mg/dL (1.6-2.6)
== END | disposition home or self-care (01) ==
LOC: CHF HDHVI 08:58
PROVIDERS: ATTEND Internal Medicine Cardiovascular Disease
DX: I11.0 Hypertensive heart disease with heart failure (principal); I50.23 Acute on chronic systolic (congestive) heart failure; E29.1 Testicular hypofunction; R53.83 Other fatigue; I25.5 Ischemic cardiomyopathy; I25.10 Atherosclerotic heart disease of native coronary artery without angina pectoris; I25.2 Old myocardial infarction; E11.9 Type 2 diabetes mellitus without complications; M19.042 Primary osteoarthritis, left hand; Z79.899 Other long term (current) drug therapy; Z87.891 Personal history of nicotine dependence; Z85.46 Personal history of malignant neoplasm of prostate; Z95.810 Presence of automatic (implantable) cardiac defibrillator; Z95.1 Presence of aortocoronary bypass graft
CPT/HCPCS: 36415; 80048; 83735; 83880; 85025; 96365; 96366; 96372; G0463; J1071; J1250; J3420

== ENCOUNTER → 2021-09-27 | Outpatient (CLI) | payer MEDICARE ==
[2021-09-27] VITALS (9 sets, daily range): BP systolic 108–119; BP diastolic 57–67
[~2021-09-27] MED LIST changes: -CYANOCOBALAMIN (B-12) 1000 MCG/1 ML VIAL IM ONE; -CYANOCOBALAMIN (B-12) 1000 MCG/1 ML VIAL ONE; -TESTOSTERONE CYPIONATE 200 MG/ML 1ML VIAL IM ONE
[2021-09-27 11:25] LABS: Basophils # (auto) 0 10 ^3/uL (0-0.2); Basophils % (auto) 0.5 % (0.0-2.0); Eosinophils # (auto) 0.1 10 ^3/uL (0-0.8); Eosinophils % (auto) 1.4 % (0.0-7.0); Hematocrit 39.3 % (41.0-53.0); Hemoglobin 13.2 g/dL (13.5-17.5); Lymphocytes # (auto) 1.3 10 ^3/uL (0.4-5.4); Lymphocytes % (auto) 22.2 % (10.0-50.0); Mean Corpuscular Hemoglobin 30.7 pg (28.0-32.0); Mean Corpuscular Hgb Conc. 33.6 g/dL (32.0-36.0); Mean Corpuscular Volume 91.5 fL (80.0-100.0); Monocytes # (auto) 0.6 10 ^3/uL (0-1.3); Monocytes % (auto) 10.3 % (0.0-12.0); Neutrophils # (auto) 3.9 10 ^3/uL (1.6-8.6); Neutrophils % (auto) 65.6 % (37.0-80.0); Red Blood Cells 4.29 10^6/uL (4.5-5.90); Red Cell Distribution Width 17.5 % (11.8-14.3)
[2021-09-27 11:44] LABS: BUN/Creatinine Ratio 20.6; Calcium 9.1 mg/dL (8.5-10.1); Magnesium 3.1 mg/dL (1.6-2.6)
== END | disposition home or self-care (01) ==
LOC: CHF HDHVI 09:21
PROVIDERS: ATTEND Internal Medicine Cardiovascular Disease
DX: I11.0 Hypertensive heart disease with heart failure (principal); I50.23 Acute on chronic systolic (congestive) heart failure; I25.10 Atherosclerotic heart disease of native coronary artery without angina pectoris; I25.2 Old myocardial infarction; E78.5 Hyperlipidemia, unspecified; M19.90 Unspecified osteoarthritis, unspecified site; Z87.891 Personal history of nicotine dependence; Z79.899 Other long term (current) drug therapy; Z85.46 Personal history of malignant neoplasm of prostate
CPT/HCPCS: 36415; 80048; 83735; 83880; 85025; 96365; 96366; G0463; J1250

== ENCOUNTER → 2021-10-04 | Outpatient (CLI) | payer MEDICARE ==
[2021-10-04] VITALS (9 sets, daily range): BP systolic 94–127; BP diastolic 55–80
[~2021-10-04] MED LIST changes: +CYANOCOBALAMIN (B-12) 1000 MCG/1 ML VIAL IM ONE; +CYANOCOBALAMIN (B-12) 1000 MCG/1 ML VIAL ONE
[2021-10-04 12:15] LABS: Potassium 4.2 mmol/L (3.5-5.1)
[2021-10-04 12:21] LABS: BUN/Creatinine Ratio 21.1; Calcium 8.8 mg/dL (8.5-10.1); Magnesium 2.2 mg/dL (1.6-2.6)
== END | disposition home or self-care (01) ==
LOC: Rad HDHVI 08:56
PROVIDERS: ATTEND Internal Medicine Cardiovascular Disease
DX: I11.0 Hypertensive heart disease with heart failure (principal); I50.23 Acute on chronic systolic (congestive) heart failure; I25.10 Atherosclerotic heart disease of native coronary artery without angina pectoris; I25.5 Ischemic cardiomyopathy; I25.2 Old myocardial infarction; E11.9 Type 2 diabetes mellitus without complications; E78.5 Hyperlipidemia, unspecified; M19.042 Primary osteoarthritis, left hand; Z79.899 Other long term (current) drug therapy; Z87.891 Personal history of nicotine dependence; Z95.810 Presence of automatic (implantable) cardiac defibrillator
CPT/HCPCS: 36415; 80048; 83735; 83880; 93306; 96365; 96366; 96372; G0463; J1250; J3420

== ENCOUNTER → 2021-10-11 | Outpatient (CLI) | payer MEDICARE ==
[2021-10-11] VITALS (9 sets, daily range): BP systolic 93–128; BP diastolic 55–68
[~2021-10-11] MED LIST changes: -CYANOCOBALAMIN (B-12) 1000 MCG/1 ML VIAL IM ONE; -CYANOCOBALAMIN (B-12) 1000 MCG/1 ML VIAL ONE; +TESTOSTERONE CYPIONATE 200 MG/ML 1ML VIAL IM ONE
[2021-10-11 11:29] LABS: Basophils # (auto) 0 10 ^3/uL (0-0.2); Basophils % (auto) 0.5 % (0.0-2.0); Eosinophils # (auto) 0.2 10 ^3/uL (0-0.8); Eosinophils % (auto) 2.7 % (0.0-7.0); Hematocrit 41.4 % (41.0-53.0); Hemoglobin 13.6 g/dL (13.5-17.5); Lymphocytes # (auto) 1.7 10 ^3/uL (0.4-5.4); Lymphocytes % (auto) 22.9 % (10.0-50.0); Mean Corpuscular Hgb Conc. 32.9 g/dL (32.0-36.0); Mean Corpuscular Volume 91.1 fL (80.0-100.0); Monocytes # (auto) 0.8 10 ^3/uL (0-1.3); Monocytes % (auto) 10.9 % (0.0-12.0); Neutrophils # (auto) 4.7 10 ^3/uL (1.6-8.6); Red Blood Cells 4.54 10^6/uL (4.5-5.90); White Blood Cell 7.5 10^3/uL (4.4-10.8)
[2021-10-11 11:44] LABS: Albumin 3.8 g/dL (3.4-5.0); BUN/Creatinine Ratio 19.9; Bilirubin, Total 0.4 mg/dL (0.2-1.0); Magnesium 3.2 mg/dL (1.6-2.6); Total Protein 7.4 g/dL (6.4-8.2)
== END | disposition home or self-care (01) ==
LOC: CHF HDHVI 09:11
PROVIDERS: ATTEND Internal Medicine Cardiovascular Disease
DX: I11.0 Hypertensive heart disease with heart failure (principal); I50.23 Acute on chronic systolic (congestive) heart failure; E29.1 Testicular hypofunction; I25.10 Atherosclerotic heart disease of native coronary artery without angina pectoris; I25.5 Ischemic cardiomyopathy; I25.2 Old myocardial infarction; E11.9 Type 2 diabetes mellitus without complications; M19.042 Primary osteoarthritis, left hand; Z95.810 Presence of automatic (implantable) cardiac defibrillator; Z79.899 Other long term (current) drug therapy; Z87.891 Personal history of nicotine dependence; Z85.46 Personal history of malignant neoplasm of prostate
CPT/HCPCS: 36415; 80053; 83735; 83880; 85025; 96365; 96366; 96372; G0463; J1071; J1250

== ENCOUNTER 2021-10-25 18:43 | Inpatient (IN) | payer MEDICARE ==
[~2021-10-25] VITALS: Ht 177.8 cm; Wt 74.9 kg
[~2021-10-25 18:43] MED LIST changes: -DOBUTamine 1000MCG/ML 250 ML IV ONE; -TESTOSTERONE CYPIONATE 200 MG/ML 1ML VIAL IM ONE
[2021-10-25] MEDS ORDERED: DexAMETHasone SOD PHOS 10MG/1ML VIAL INJ IV ONE (19:30)
[2021-10-25 19:40] LABS: Albumin 2.7 g/dL (3.4-5.0); Calcium 8.5 mg/dL (8.5-10.1); Potassium 5.5 mmol/L (3.5-5.1)
[2021-10-25 19:46] LABS: BUN/Creatinine Ratio 34.5; Bilirubin, Total 0.5 mg/dL (0.2-1.0); Total Protein 6.7 g/dL (6.4-8.2)
[2021-10-25 19:54] LABS: Basophils # (auto) 0 10 ^3/uL (0-0.2); Basophils % (auto) 0.1 % (0.0-2.0); Eosinophils # (auto) 0 10 ^3/uL (0-0.8); Hematocrit 43.1 % (41.0-53.0); Hemoglobin 14.4 g/dL (13.5-17.5); Lymphocytes # (auto) 0.4 10 ^3/uL (0.4-5.4); Lymphocytes % (auto) 1.7 % (10.0-50.0); Mean Corpuscular Hemoglobin 30.1 pg (28.0-32.0); Mean Corpuscular Hgb Conc. 33.4 g/dL (32.0-36.0); Mean Corpuscular Volume 89.9 fL (80.0-100.0); Monocytes # (auto) 0.7 10 ^3/uL (0-1.3); Monocytes % (auto) 3.2 % (0.0-12.0); Neutrophils # (auto) 20.3 10 ^3/uL (1.6-8.6); Red Blood Cells 4.79 10^6/uL (4.5-5.90); Red Cell Distribution Width 16.8 % (11.8-14.3); White Blood Cell 21.4 10^3/uL (4.4-10.8)
[2021-10-25] MEDS ORDERED: FUROSEMIDE 100 MG/10ML VIAL IV ONE (21:00)
[2021-10-25] MEDS ORDERED: AZITHROMYCIN 250 MG TAB PO ONE (21:00)
[2021-10-25] MEDS ORDERED: cefTRIAXone SOD 1,000 MG VL IV ONE (21:00)
[2021-10-25] MEDS ORDERED: SODIUM ZIRCONIUM CYCL 10 GM PAK PO ONE (22:00)
[2021-10-25] MEDS ORDERED: ONDANSETRON HCL 4 MG/2 ML VIAL IV PRN (22:00)
[2021-10-25] MEDS ORDERED: NITROGLYCERIN 0.4 MG SL TAB SL PRN (22:00)
[2021-10-25] MEDS ORDERED: TEMAZEPAM 15 MG CAP PO PRN (22:00)
[2021-10-25] MEDS ORDERED: MORPHINE SULFATE INJECTION 2 MG/ML SYRG IV PRN (22:00)
[2021-10-25] MEDS ORDERED: ACETAMINOPHEN 325 MG TAB PO PRN (22:00)
[2021-10-25 22:35] LABS: Partial Thromboplastin Time 45.6 sec (23.6-33.0)
[2021-10-25 22:41] LABS: INR 4.03 (0.9-1.15)
[2021-10-25 23:17] LABS: Urine Bacteria NONE SEEN /hpf (None Seen); Urine Blood Negative /uL (Negative); Urine Specific Gravity 1.018 (1.001-1.035); Urine WBC <1 /hpf (0 - 3)
[2021-10-25] MEDS: ASCORBIC ACID 500 MG TAB PO SCH (23:51)
[2021-10-25] MEDS: SACUBITRIL-VALSARTAN 24mg/26mg TAB PO SCH (23:57)
[2021-10-26 00:10] LABS: Partial Thromboplastin Time 44.1 sec (23.6-33.0)
[2021-10-26 00:16] LABS: INR 4.08 (0.9-1.15)
[2021-10-26 03:59] LABS: Basophils # (auto) 0 10 ^3/uL (0-0.2); Basophils % (auto) 0.1 % (0.0-2.0); Eosinophils # (auto) 0 10 ^3/uL (0-0.8); Hematocrit 43.4 % (41.0-53.0); Hemoglobin 14.6 g/dL (13.5-17.5); Lymphocytes # (auto) 0.4 10 ^3/uL (0.4-5.4); Lymphocytes % (auto) 1.9 % (10.0-50.0); Mean Corpuscular Hemoglobin 29.9 pg (28.0-32.0); Mean Corpuscular Hgb Conc. 33.6 g/dL (32.0-36.0); Monocytes # (auto) 0.5 10 ^3/uL (0-1.3); Monocytes % (auto) 2.3 % (0.0-12.0); Neutrophils # (auto) 20.4 10 ^3/uL (1.6-8.6); Neutrophils % (auto) 95.7 % (37.0-80.0); Red Blood Cells 4.87 10^6/uL (4.5-5.90); Red Cell Distribution Width 16.7 % (11.8-14.3); White Blood Cell 21.3 10^3/uL (4.4-10.8)
[2021-10-26 04:20] LABS: Albumin 2.7 g/dL (3.4-5.0); Calcium 8.9 mg/dL (8.5-10.1)
[2021-10-26 04:22] LABS: BUN/Creatinine Ratio 34.7
[2021-10-26 04:24] LABS: Bilirubin, Total 0.5 mg/dL (0.2-1.0); Total Protein 6.5 g/dL (6.4-8.2)
[2021-10-26] MEDS: FUROSEMIDE 20 MG/2 ML VIAL IV SCH ×2 (06:49→18:00)
[2021-10-26] MEDS: LEVOTHYROXINE SODIUM 100 MCG TAB PO SCH (06:49)
[2021-10-26] MEDS: cefTRIAXone 1GM/50ML D5W 50 ML IV SCH (08:57)
[2021-10-26] MEDS: SACUBITRIL-VALSARTAN 24mg/26mg TAB PO SCH ×2 (09:50→22:00)
[2021-10-26] MEDS: PANTOPRAZOLE 40 MG TAB PO SCH (10:00)
[2021-10-26] MEDS: AZITHROMYCIN 500MG/ 250ML 250 ML IV SCH (10:00)
[2021-10-26] MEDS ORDERED: DexAMETHasone SOD PHOS 10MG/1ML VIAL INJ IV SCH (10:00)
[2021-10-26] MEDS: ASCORBIC ACID 500 MG TAB PO SCH ×2 (10:00→22:25)
[2021-10-26] MEDS: ZINC SULFATE 220mg CAP or TAB PO SCH (10:00)
[2021-10-26] MEDS: AMIODARONE HCL 200 MG TAB PO SCH (10:00)
[2021-10-26] MEDS: MULTIPLE VITAMIN TAB PO SCH (10:00)
[2021-10-26] MEDS: PRASUGREL HCL 10 MG TAB PO SCH (10:00)
[2021-10-26 14:57] LABS: INR 4.32 (0.9-1.15)
[2021-10-26] MEDS: IVERMECTIN 3 MG TAB PO SCH (15:18)
[2021-10-26] MEDS ORDERED: REMDESIVIR PER PHARMACY 0 ML IV SCH (15:30)
[2021-10-26] MEDS: DOBUTamine 1000MCG/ML 250 ML IV SCH (15:44)
[2021-10-26] MEDS ORDERED: REMDESIVIR 200 MG in NS 210ml LOADING DOSE ADULT IV ONE (17:00)
[2021-10-26] MEDS: DexAMETHasone SOD PHOS 10MG/1ML VIAL INJ IV SCH (22:24)
[2021-10-26] MEDS: ATORVASTATIN 20 MG TAB PO SCH (22:25)
[2021-10-27] MEDS: DexAMETHasone SOD PHOS 10MG/1ML VIAL INJ IV SCH ×3 (06:00→23:28)
[2021-10-27] MEDS: FUROSEMIDE 20 MG/2 ML VIAL IV SCH ×2 (06:00→18:00)
[2021-10-27 06:41] LABS: Basophils # (auto) 0.1 10 ^3/uL (0-0.2); Basophils % (auto) 0.7 % (0.0-2.0); Eosinophils # (auto) 0 10 ^3/uL (0-0.8); Hemoglobin 14.4 g/dL (13.5-17.5); Lymphocytes # (auto) 0.2 10 ^3/uL (0.4-5.4); Lymphocytes % (auto) 1.3 % (10.0-50.0); Mean Corpuscular Hemoglobin 29.9 pg (28.0-32.0); Mean Corpuscular Hgb Conc. 33.5 g/dL (32.0-36.0); Mean Corpuscular Volume 89.2 fL (80.0-100.0); Monocytes # (auto) 0.5 10 ^3/uL (0-1.3); Monocytes % (auto) 2.6 % (0.0-12.0); Neutrophils # (auto) 17.1 10 ^3/uL (1.6-8.6); Neutrophils % (auto) 95.4 % (37.0-80.0); Red Blood Cells 4.81 10^6/uL (4.5-5.90); Red Cell Distribution Width 16.5 % (11.8-14.3); White Blood Cell 17.9 10^3/uL (4.4-10.8)
[2021-10-27 07:02] LABS: Albumin 2.5 g/dL (3.4-5.0); BUN/Creatinine Ratio 41.7; Calcium 8.6 mg/dL (8.5-10.1)
[2021-10-27 07:04] LABS: Bilirubin, Total 0.6 mg/dL (0.2-1.0); Total Protein 5.8 g/dL (6.4-8.2)
[2021-10-27] MEDS: LEVOTHYROXINE SODIUM 100 MCG TAB PO SCH (07:45)
[2021-10-27 08:31] LABS: INR 5.19 (0.9-1.15)
[2021-10-27] MEDS: cefTRIAXone 1GM/50ML D5W 50 ML IV SCH ×2 (09:15→10:28)
[2021-10-27] MEDS: DOBUTamine 1000MCG/ML 250 ML IV SCH (09:53)
[2021-10-27] MEDS: SACUBITRIL-VALSARTAN 24mg/26mg TAB PO SCH ×2 (10:00→22:00)
[2021-10-27] MEDS: IVERMECTIN 3 MG TAB PO SCH (10:21)
[2021-10-27] MEDS: ASCORBIC ACID 500 MG TAB PO SCH ×2 (10:22→23:28)
[2021-10-27] MEDS: MULTIPLE VITAMIN TAB PO SCH (10:22)
[2021-10-27] MEDS: ZINC SULFATE 220mg CAP or TAB PO SCH (10:24)
[2021-10-27] MEDS: PANTOPRAZOLE 40 MG TAB PO SCH (10:24)
[2021-10-27] MEDS: AMIODARONE HCL 200 MG TAB PO SCH (10:24)
[2021-10-27] MEDS: AZITHROMYCIN 500MG/ 250ML 250 ML IV SCH (10:27)
[2021-10-27] MEDS: PRASUGREL HCL 10 MG TAB PO SCH (10:27)
[2021-10-27] MEDS: Ensure HIGH Protein Chocolate 8oz Bottle PO SCH ×2 (13:21→18:59)
[2021-10-27] MEDS: REMDESIVIR 100mg 100 MG in SODIUM CHL 0.9% 230 ML IV SCH (14:38)
[2021-10-27 22:00] VITALS: BP 97/60
[2021-10-27] MEDS: ATORVASTATIN 20 MG TAB PO SCH (23:28)
[2021-10-28] VITALS (7 sets, daily range): BP systolic 93–125; BP diastolic 54–77
[2021-10-28] MEDS: DOBUTamine 1000MCG/ML 250 ML IV SCH ×2 (04:16→08:48)
[2021-10-28] MEDS: FUROSEMIDE 20 MG/2 ML VIAL IV SCH ×2 (06:00→17:18)
[2021-10-28] MEDS: DexAMETHasone SOD PHOS 10MG/1ML VIAL INJ IV SCH ×3 (06:35→21:51)
[2021-10-28] MEDS: LEVOTHYROXINE SODIUM 100 MCG TAB PO SCH (06:36)
[2021-10-28 08:27] LABS: Potassium 4.1 mmol/L (3.5-5.1)
[2021-10-28 08:44] LABS: Albumin 2.6 g/dL (3.4-5.0); Bilirubin, Total 0.6 mg/dL (0.2-1.0); Calcium 8.5 mg/dL (8.5-10.1); Total Protein 5.6 g/dL (6.4-8.2)
[2021-10-28] MEDS: Ensure HIGH Protein Chocolate 8oz Bottle PO SCH ×3 (08:47→17:35)
[2021-10-28 09:05] LABS: INR 4.77 (0.9-1.15)
[2021-10-28] MEDS: AZITHROMYCIN 500MG/ 250ML 250 ML IV SCH (10:57)
[2021-10-28] MEDS: IVERMECTIN 3 MG TAB PO SCH (10:57)
[2021-10-28] MEDS: ASCORBIC ACID 500 MG TAB PO SCH ×2 (10:58→21:52)
[2021-10-28] MEDS: PANTOPRAZOLE 40 MG TAB PO SCH (10:58)
[2021-10-28] MEDS: ZINC SULFATE 220mg CAP or TAB PO SCH (10:58)
[2021-10-28] MEDS: AMIODARONE HCL 200 MG TAB PO SCH (10:58)
[2021-10-28] MEDS: SACUBITRIL-VALSARTAN 24mg/26mg TAB PO SCH ×2 (10:59→21:50)
[2021-10-28] MEDS: MULTIPLE VITAMIN TAB PO SCH (10:59)
[2021-10-28 11:10] LABS: Basophils # (auto) 0 10 ^3/uL (0-0.2); Basophils % (auto) 0.1 % (0.0-2.0); Eosinophils # (auto) 0 10 ^3/uL (0-0.8); Lymphocytes # (auto) 0.3 10 ^3/uL (0.4-5.4); Lymphocytes % (auto) 1.9 % (10.0-50.0); Mean Corpuscular Hgb Conc. 33.3 g/dL (32.0-36.0); Mean Corpuscular Volume 89.9 fL (80.0-100.0); Monocytes # (auto) 0.4 10 ^3/uL (0-1.3); Monocytes % (auto) 2.4 % (0.0-12.0); Neutrophils # (auto) 16.7 10 ^3/uL (1.6-8.6); Neutrophils % (auto) 95.6 % (37.0-80.0); Red Blood Cells 4.67 10^6/uL (4.5-5.90); Red Cell Distribution Width 16.6 % (11.8-14.3); White Blood Cell 17.5 10^3/uL (4.4-10.8)
[2021-10-28] MEDS: PRASUGREL HCL 10 MG TAB PO SCH (12:06)
[2021-10-28] MEDS: REMDESIVIR 100mg 100 MG in SODIUM CHL 0.9% 230 ML IV SCH (16:06)
[2021-10-28] MEDS: ATORVASTATIN 20 MG TAB PO SCH (21:52)
[2021-10-29] VITALS (8 sets, daily range): BP systolic 89–109; BP diastolic 45–64
[2021-10-29] MEDS: FUROSEMIDE 20 MG/2 ML VIAL IV SCH ×2 (06:00→18:00)
[2021-10-29] MEDS: DexAMETHasone SOD PHOS 10MG/1ML VIAL INJ IV SCH ×3 (06:09→21:47)
[2021-10-29] MEDS: LEVOTHYROXINE SODIUM 100 MCG TAB PO SCH (06:09)
[2021-10-29] MEDS: DOBUTamine 1000MCG/ML 250 ML IV SCH (07:55)
[2021-10-29] MEDS: Ensure HIGH Protein Chocolate 8oz Bottle PO SCH ×3 (08:00→18:12)
[2021-10-29 08:43] LABS: INR 3.17 (0.9-1.15); Partial Thromboplastin Time 41.7 sec (23.6-33.0)
[2021-10-29 08:52] LABS: Potassium 4.5 mmol/L (3.5-5.1)
[2021-10-29 09:04] LABS: Albumin 2.3 g/dL (3.4-5.0); BUN/Creatinine Ratio 53.5; Bilirubin, Total 0.4 mg/dL (0.2-1.0); Calcium 8.2 mg/dL (8.5-10.1); Total Protein 5.6 g/dL (6.4-8.2)
[2021-10-29] MEDS: PRASUGREL HCL 10 MG TAB PO SCH (11:38)
[2021-10-29] MEDS: AZITHROMYCIN 500MG/ 250ML 250 ML IV SCH (11:38)
[2021-10-29] MEDS: MULTIPLE VITAMIN TAB PO SCH (11:40)
[2021-10-29] MEDS: AMIODARONE HCL 200 MG TAB PO SCH (11:40)
[2021-10-29] MEDS: IVERMECTIN 3 MG TAB PO SCH (11:40)
[2021-10-29] MEDS: SACUBITRIL-VALSARTAN 24mg/26mg TAB PO SCH ×2 (11:41→21:48)
[2021-10-29] MEDS: ASCORBIC ACID 500 MG TAB PO SCH ×2 (11:41→21:48)
[2021-10-29] MEDS: PANTOPRAZOLE 40 MG TAB PO SCH (11:41)
[2021-10-29] MEDS: ZINC SULFATE 220mg CAP or TAB PO SCH (11:42)
[2021-10-29] MEDS: cefTRIAXone 1GM/50ML D5W 50 ML IV SCH (11:43)
[2021-10-29] MEDS: REMDESIVIR 100mg 100 MG in SODIUM CHL 0.9% 230 ML IV SCH (14:33)
[2021-10-29] MEDS: ATORVASTATIN 20 MG TAB PO SCH (21:48)
[2021-10-30 05:00] VITALS: BP 101/44
[2021-10-30] MEDS: DOBUTamine 1000MCG/ML 250 ML IV SCH ×3 (05:15→21:46)
[2021-10-30] MEDS: DexAMETHasone SOD PHOS 10MG/1ML VIAL INJ IV SCH ×3 (06:55→21:45)
[2021-10-30] MEDS: LEVOTHYROXINE SODIUM 100 MCG TAB PO SCH (06:55)
[2021-10-30] MEDS: FUROSEMIDE 20 MG/2 ML VIAL IV SCH ×2 (06:55→17:24)
[2021-10-30 07:45] LABS: Albumin 2.4 g/dL (3.4-5.0); Calcium 8.5 mg/dL (8.5-10.1); Potassium 4.7 mmol/L (3.5-5.1)
[2021-10-30 07:50] LABS: INR 2.13 (0.9-1.15); Partial Thromboplastin Time 34.8 sec (23.6-33.0)
[2021-10-30 07:51] LABS: Bilirubin, Total 0.5 mg/dL (0.2-1.0); Total Protein 5.4 g/dL (6.4-8.2)
[2021-10-30] MEDS: Ensure HIGH Protein Chocolate 8oz Bottle PO SCH ×3 (08:39→17:39)
[2021-10-30] MEDS: cefTRIAXone 1GM/50ML D5W 50 ML IV SCH (08:39)
[2021-10-30 09:00] VITALS: BP 102/48
[2021-10-30] MEDS: ZINC SULFATE 220mg CAP or TAB PO SCH (09:09)
[2021-10-30] MEDS: AMIODARONE HCL 200 MG TAB PO SCH (09:10)
[2021-10-30] MEDS: IVERMECTIN 3 MG TAB PO SCH (09:11)
[2021-10-30] MEDS: PANTOPRAZOLE 40 MG TAB PO SCH (09:11)
[2021-10-30] MEDS: SACUBITRIL-VALSARTAN 24mg/26mg TAB PO SCH ×2 (09:11→22:00)
[2021-10-30] MEDS: MULTIPLE VITAMIN TAB PO SCH (09:11)
[2021-10-30] MEDS: ASCORBIC ACID 500 MG TAB PO SCH ×2 (09:12→21:46)
[2021-10-30] MEDS: AZITHROMYCIN 500MG/ 250ML 250 ML IV SCH (09:49)
[2021-10-30 13:00] VITALS: BP 88/59
[2021-10-30] MEDS: PRASUGREL HCL 10 MG TAB PO SCH (14:38)
[2021-10-30] MEDS: REMDESIVIR 100mg 100 MG in SODIUM CHL 0.9% 230 ML IV SCH (14:39)
[2021-10-30 16:30] VITALS: BP 105/43
[2021-10-30] MEDS ORDERED: WARFARIN SODIUM 1 MG TAB PO ONE (17:00)
[2021-10-30] MEDS: ATORVASTATIN 20 MG TAB PO SCH (21:45)
[2021-10-30 22:00] VITALS: BP 101/65
[2021-10-31 05:00] VITALS: BP 107/59
[2021-10-31] MEDS: DexAMETHasone SOD PHOS 10MG/1ML VIAL INJ IV SCH ×3 (06:00→23:34)
[2021-10-31] MEDS: FUROSEMIDE 20 MG/2 ML VIAL IV SCH ×2 (06:00→19:12)
[2021-10-31] MEDS: LEVOTHYROXINE SODIUM 100 MCG TAB PO SCH (07:00)
[2021-10-31 08:00] VITALS: BP_SYST 101; BP_SYST 111; BP_DIAS 54; BP_DIAS 55
[2021-10-31] MEDS: Ensure HIGH Protein Chocolate 8oz Bottle PO SCH ×3 (08:00→18:00)
[2021-10-31 08:12] LABS: INR 1.54 (0.9-1.15)
[2021-10-31] MEDS: SACUBITRIL-VALSARTAN 24mg/26mg TAB PO SCH ×2 (10:00→22:00)
[2021-10-31] MEDS: MULTIPLE VITAMIN TAB PO SCH (10:00)
[2021-10-31] MEDS: AZITHROMYCIN 500MG/ 250ML 250 ML IV SCH (10:16)
[2021-10-31] MEDS: cefTRIAXone 1GM/50ML D5W 50 ML IV SCH (10:16)
[2021-10-31] MEDS: AMIODARONE HCL 200 MG TAB PO SCH (10:17)
[2021-10-31] MEDS: PANTOPRAZOLE 40 MG TAB PO SCH (10:18)
[2021-10-31] MEDS: ASCORBIC ACID 500 MG TAB PO SCH ×2 (10:18→23:32)
[2021-10-31] MEDS: PRASUGREL HCL 10 MG TAB PO SCH (11:00)
[2021-10-31] MEDS: ZINC SULFATE 220mg CAP or TAB PO SCH (11:00)
[2021-10-31] MEDS: DOBUTamine 1000MCG/ML 250 ML IV SCH ×2 (11:01→21:00)
[2021-10-31 12:41] VITALS: BP 111/60
[2021-10-31] MEDS ORDERED: WARFARIN SODIUM 2 MG TAB PO ONE (17:00)
[2021-10-31 17:30] VITALS: BP 116/69
[2021-10-31 20:00] VITALS: BP 109/73
[2021-10-31] MEDS: ATORVASTATIN 20 MG TAB PO SCH (23:32)
[2021-11-01] MEDS: FUROSEMIDE 20 MG/2 ML VIAL IV SCH ×2 (06:28→18:16)
[2021-11-01] MEDS: LEVOTHYROXINE SODIUM 100 MCG TAB PO SCH (06:28)
[2021-11-01] MEDS: DexAMETHasone SOD PHOS 10MG/1ML VIAL INJ IV SCH ×3 (06:37→21:48)
[2021-11-01] MEDS: DOBUTamine 1000MCG/ML 250 ML IV SCH ×2 (06:38→18:17)
[2021-11-01 07:31] LABS: Basophils # (auto) 0 10 ^3/uL (0-0.2); Basophils % (auto) 0.1 % (0.0-2.0); Eosinophils # (auto) 0 10 ^3/uL (0-0.8); Hematocrit 39.3 % (41.0-53.0); Hemoglobin 13.3 g/dL (13.5-17.5); Lymphocytes # (auto) 0.3 10 ^3/uL (0.4-5.4); Lymphocytes % (auto) 1.5 % (10.0-50.0); Mean Corpuscular Hemoglobin 30.1 pg (28.0-32.0); Mean Corpuscular Hgb Conc. 33.8 g/dL (32.0-36.0); Mean Corpuscular Volume 89.2 fL (80.0-100.0); Monocytes # (auto) 0.5 10 ^3/uL (0-1.3); Monocytes % (auto) 2.9 % (0.0-12.0); Neutrophils # (auto) 17.1 10 ^3/uL (1.6-8.6); Neutrophils % (auto) 95.5 % (37.0-80.0); Nucleated Red Blood Cells % 0.1 %; Red Blood Cells 4.41 10^6/uL (4.5-5.90); Red Cell Distribution Width 15.8 % (11.8-14.3); White Blood Cell 17.9 10^3/uL (4.4-10.8)
[2021-11-01 07:34] LABS: INR 1.6 (0.9-1.15)
[2021-11-01] MEDS: Ensure HIGH Protein Chocolate 8oz Bottle PO SCH ×3 (08:00→18:01)
[2021-11-01 09:00] VITALS: BP 108/61
[2021-11-01] MEDS: MULTIPLE VITAMIN TAB PO SCH (09:36)
[2021-11-01] MEDS: SACUBITRIL-VALSARTAN 24mg/26mg TAB PO SCH ×2 (09:36→21:48)
[2021-11-01] MEDS: AMIODARONE HCL 200 MG TAB PO SCH (09:37)
[2021-11-01] MEDS: ZINC SULFATE 220mg CAP or TAB PO SCH (09:37)
[2021-11-01] MEDS: ASCORBIC ACID 500 MG TAB PO SCH ×2 (09:37→21:48)
[2021-11-01] MEDS: AZITHROMYCIN 500MG/ 250ML 250 ML IV SCH (09:37)
[2021-11-01] MEDS: PRASUGREL HCL 10 MG TAB PO SCH (09:38)
[2021-11-01] MEDS: cefTRIAXone 1GM/50ML D5W 50 ML IV SCH (09:38)
[2021-11-01] MEDS: PANTOPRAZOLE 40 MG TAB PO SCH (09:38)
[2021-11-01 12:32] VITALS: BP 99/57
[2021-11-01] MEDS: ALPRAZolam 0.25 MG TAB PO PRN (14:44)
[2021-11-01 16:37] VITALS: BP 111/60
[2021-11-01] MEDS ORDERED: WARFARIN SODIUM 2.5 MG TAB PO ONE (17:00)
[2021-11-01 21:45] VITALS: BP 110/60
[2021-11-01] MEDS: ATORVASTATIN 20 MG TAB PO SCH (21:48)
[2021-11-02] MEDS: ALPRAZolam 0.25 MG TAB PO PRN (02:45)
[2021-11-02] MEDS: DOBUTamine 1000MCG/ML 250 ML IV SCH ×2 (03:30→17:03)
[2021-11-02 05:00] VITALS: BP 98/51
[2021-11-02] MEDS: FUROSEMIDE 20 MG/2 ML VIAL IV SCH ×2 (06:00→17:48)
[2021-11-02] MEDS: DexAMETHasone SOD PHOS 10MG/1ML VIAL INJ IV SCH ×3 (06:43→21:59)
[2021-11-02] MEDS: LEVOTHYROXINE SODIUM 100 MCG TAB PO SCH (06:43)
[2021-11-02] MEDS: Ensure HIGH Protein Chocolate 8oz Bottle PO SCH ×3 (08:06→18:09)
[2021-11-02] MEDS: cefTRIAXone 1GM/50ML D5W 50 ML IV SCH (08:48)
[2021-11-02] MEDS: SACUBITRIL-VALSARTAN 24mg/26mg TAB PO SCH ×2 (08:49→21:59)
[2021-11-02] MEDS: MULTIPLE VITAMIN TAB PO SCH (08:49)
[2021-11-02] MEDS: PANTOPRAZOLE 40 MG TAB PO SCH (08:49)
[2021-11-02] MEDS: ZINC SULFATE 220mg CAP or TAB PO SCH (08:49)
[2021-11-02] MEDS: ASCORBIC ACID 500 MG TAB PO SCH ×2 (08:50→22:00)
[2021-11-02] MEDS: AMIODARONE HCL 200 MG TAB PO SCH (08:50)
[2021-11-02 09:00] VITALS: BP 109/54
[2021-11-02 09:38] LABS: INR 1.57 (0.9-1.15)
[2021-11-02] MEDS: AZITHROMYCIN 500MG/ 250ML 250 ML IV SCH (10:42)
[2021-11-02] MEDS: PRASUGREL HCL 10 MG TAB PO SCH (10:42)
[2021-11-02 13:00] VITALS: BP 90/49
[2021-11-02 17:00] VITALS: BP 99/54
[2021-11-02] MEDS ORDERED: WARFARIN SODIUM 1 MG TAB PO ONE (17:00)
[2021-11-02] MEDS: ATORVASTATIN 20 MG TAB PO SCH (21:59)
[2021-11-02 22:00] VITALS: BP 98/55
[2021-11-03] MEDS: ALPRAZolam 0.25 MG TAB PO PRN ×2 (01:58→15:11)
[2021-11-03] MEDS: DOBUTamine 1000MCG/ML 250 ML IV SCH ×2 (03:10→13:31)
[2021-11-03 05:00] VITALS: BP 88/57
[2021-11-03] MEDS: FUROSEMIDE 20 MG/2 ML VIAL IV SCH (06:00)
[2021-11-03] MEDS: LEVOTHYROXINE SODIUM 100 MCG TAB PO SCH (06:10)
[2021-11-03 07:18] LABS: Basophils # (auto) 0 10 ^3/uL (0-0.2); Basophils % (auto) 0.2 % (0.0-2.0); Eosinophils # (auto) 0 10 ^3/uL (0-0.8); Hematocrit 42.1 % (41.0-53.0); Lymphocytes # (auto) 0.3 10 ^3/uL (0.4-5.4); Lymphocytes % (auto) 1.4 % (10.0-50.0); Mean Corpuscular Hemoglobin 29.7 pg (28.0-32.0); Mean Corpuscular Hgb Conc. 33.1 g/dL (32.0-36.0); Mean Corpuscular Volume 89.6 fL (80.0-100.0); Monocytes # (auto) 0.4 10 ^3/uL (0-1.3); Monocytes % (auto) 2.1 % (0.0-12.0); Neutrophils # (auto) 19.1 10 ^3/uL (1.6-8.6); Neutrophils % (auto) 96.3 % (37.0-80.0); Red Cell Distribution Width 15.7 % (11.8-14.3); White Blood Cell 19.8 10^3/uL (4.4-10.8)
[2021-11-03 07:21] LABS: INR 1.81 (0.9-1.15)
[2021-11-03 07:35] LABS: Potassium 4.8 mmol/L (3.5-5.1)
[2021-11-03 07:54] LABS: BUN/Creatinine Ratio 50.9; Calcium 8.6 mg/dL (8.5-10.1)
[2021-11-03] MEDS: Ensure HIGH Protein Chocolate 8oz Bottle PO SCH ×3 (08:07→18:30)
[2021-11-03 09:00] VITALS: BP 110/53
[2021-11-03] MEDS: DexAMETHasone SOD PHOS 10MG/1ML VIAL INJ IV SCH ×2 (09:21→21:54)
[2021-11-03] MEDS: cefTRIAXone 1GM/50ML D5W 50 ML IV SCH (09:21)
[2021-11-03] MEDS: PANTOPRAZOLE 40 MG TAB PO SCH (09:21)
[2021-11-03] MEDS: MULTIPLE VITAMIN TAB PO SCH (09:22)
[2021-11-03] MEDS: PRASUGREL HCL 10 MG TAB PO SCH (09:22)
[2021-11-03] MEDS: ZINC SULFATE 220mg CAP or TAB PO SCH (09:22)
[2021-11-03] MEDS: SACUBITRIL-VALSARTAN 24mg/26mg TAB PO SCH (09:22)
[2021-11-03] MEDS: ASCORBIC ACID 500 MG TAB PO SCH ×3 (09:22→22:00)
[2021-11-03] MEDS: AMIODARONE HCL 200 MG TAB PO SCH (09:23)
[2021-11-03] MEDS: AZITHROMYCIN 500MG/ 250ML 250 ML IV SCH (10:56)
[2021-11-03 13:00] VITALS: BP 91/39
[2021-11-03 16:32] VITALS: BP 98/58
[2021-11-03] MEDS ORDERED: WARFARIN SODIUM 1 MG TAB PO ONE (17:00)
[2021-11-03] MEDS: ATORVASTATIN 20 MG TAB PO SCH ×2 (21:54→22:00)
[2021-11-03 23:04] VITALS: BP 127/70
[2021-11-04] MEDS: ALPRAZolam 0.25 MG TAB PO PRN ×2 (03:17→13:44)
[2021-11-04 05:15] VITALS: BP 92/49
[2021-11-04] MEDS: LEVOTHYROXINE SODIUM 100 MCG TAB PO SCH (06:22)
[2021-11-04 06:46] LABS: INR 2.13 (0.9-1.15)
[2021-11-04 09:00] VITALS: BP 92/50
[2021-11-04] MEDS: cefTRIAXone 1GM/50ML D5W 50 ML IV SCH (09:50)
[2021-11-04] MEDS: Ensure HIGH Protein Chocolate 8oz Bottle PO SCH ×3 (09:50→17:25)
[2021-11-04] MEDS: AMIODARONE HCL 200 MG TAB PO SCH (09:51)
[2021-11-04] MEDS: ZINC SULFATE 220mg CAP or TAB PO SCH (09:51)
[2021-11-04] MEDS: PANTOPRAZOLE 40 MG TAB PO SCH (09:51)
[2021-11-04] MEDS: PRASUGREL HCL 10 MG TAB PO SCH (09:51)
[2021-11-04] MEDS: DexAMETHasone SOD PHOS 10MG/1ML VIAL INJ IV SCH ×2 (09:51→21:30)
[2021-11-04] MEDS: MULTIPLE VITAMIN TAB PO SCH (09:51)
[2021-11-04] MEDS: ASCORBIC ACID 500 MG TAB PO SCH ×2 (09:52→21:32)
[2021-11-04] MEDS: AZITHROMYCIN 500MG/ 250ML 250 ML IV SCH (10:45)
[2021-11-04 12:53] VITALS: BP 98/45
[2021-11-04 17:00] VITALS: BP 108/60
[2021-11-04] MEDS ORDERED: WARFARIN SODIUM 2 MG TAB PO ONE (17:00)
[2021-11-04] MEDS: LORazepam 2MG/ML-1ML VIAL IV PRN (21:30)
[2021-11-04] MEDS: ATORVASTATIN 20 MG TAB PO SCH (21:32)
[2021-11-04 22:00] VITALS: BP 100/64
[2021-11-05] MEDS: LORazepam 2MG/ML-1ML VIAL IV PRN ×2 (04:51→18:31)
[2021-11-05 05:00] VITALS: BP 94/66
[2021-11-05] MEDS: LEVOTHYROXINE SODIUM 100 MCG TAB PO SCH (06:03)
[2021-11-05 07:26] LABS: INR 2.18 (0.9-1.15); Partial Thromboplastin Time 34.1 sec (23.6-33.0)
[2021-11-05] MEDS: Ensure HIGH Protein Chocolate 8oz Bottle PO SCH ×3 (08:00→18:00)
[2021-11-05 09:00] VITALS: BP 101/60
[2021-11-05] MEDS: cefTRIAXone 1GM/50ML D5W 50 ML IV SCH (09:24)
[2021-11-05] MEDS: DexAMETHasone SOD PHOS 10MG/1ML VIAL INJ IV SCH ×2 (09:24→21:39)
[2021-11-05] MEDS: MULTIPLE VITAMIN TAB PO SCH (09:54)
[2021-11-05] MEDS: PRASUGREL HCL 10 MG TAB PO SCH (09:54)
[2021-11-05] MEDS: ZINC SULFATE 220mg CAP or TAB PO SCH (09:54)
[2021-11-05] MEDS: PANTOPRAZOLE 40 MG TAB PO SCH (09:54)
[2021-11-05] MEDS: AMIODARONE HCL 200 MG TAB PO SCH (09:54)
[2021-11-05] MEDS: ASCORBIC ACID 500 MG TAB PO SCH ×2 (09:55→21:39)
[2021-11-05] MEDS: AZITHROMYCIN 500MG/ 250ML 250 ML IV SCH (10:39)
[2021-11-05 13:00] VITALS: BP 101/71
[2021-11-05 17:00] VITALS: BP 121/64
[2021-11-05] MEDS ORDERED: WARFARIN SODIUM 1 MG TAB PO ONE (17:30)
[2021-11-05] MEDS: ATORVASTATIN 20 MG TAB PO SCH (21:39)
[2021-11-05 22:00] VITALS: BP 115/64
[2021-11-06] VITALS (25 sets, daily range): BP systolic 58–136; BP diastolic 30–79
[2021-11-06] MEDS: LORazepam 2MG/ML-1ML VIAL IV PRN ×2 (03:36→12:56)
[2021-11-06] MEDS: LEVOTHYROXINE SODIUM 100 MCG TAB PO SCH (05:43)
[2021-11-06 07:35] LABS: Hemoglobin 14.7 g/dL (13.5-17.5); Mean Corpuscular Hemoglobin 29.4 pg (28.0-32.0); Mean Corpuscular Hgb Conc. 32.7 g/dL (32.0-36.0); Mean Corpuscular Volume 89.8 fL (80.0-100.0); Red Blood Cells 5.01 10^6/uL (4.5-5.90); Red Cell Distribution Width 15.5 % (11.8-14.3); White Blood Cell 19.2 10^3/uL (4.4-10.8)
[2021-11-06 07:44] LABS: Basophils % (manual) 0 (0.0-2.0); Blast Cells 0; Eosinophils % (manual) 0 (0-7); Lymphocytes % (manual) 0 (10.0-50.0); Metamyelocytes % 0; Myelocytes % 0; Promyelocytes % 0; Reactive Lymphocytes 0
[2021-11-06] MEDS: Ensure HIGH Protein Chocolate 8oz Bottle PO SCH ×3 (08:00→18:00)
[2021-11-06 08:07] LABS: INR 2.29 (0.9-1.15)
[2021-11-06] MEDS: cefTRIAXone 1GM/50ML D5W 50 ML IV SCH (09:04)
[2021-11-06] MEDS: DexAMETHasone SOD PHOS 10MG/1ML VIAL INJ IV SCH ×2 (10:30→22:00)
[2021-11-06] MEDS: PRASUGREL HCL 10 MG TAB PO SCH (10:31)
[2021-11-06] MEDS: AMIODARONE HCL 200 MG TAB PO SCH (10:31)
[2021-11-06] MEDS: AZITHROMYCIN 500MG/ 250ML 250 ML IV SCH (10:31)
[2021-11-06] MEDS: MULTIPLE VITAMIN TAB PO SCH (10:33)
[2021-11-06] MEDS: ZINC SULFATE 220mg CAP or TAB PO SCH (10:33)
[2021-11-06] MEDS: ASCORBIC ACID 500 MG TAB PO SCH ×2 (10:34→22:00)
[2021-11-06] MEDS: PANTOPRAZOLE 40 MG TAB PO SCH (10:34)
[2021-11-06 12:35] LABS: Band Neutrophils % (manual) 1; Monocytes % (manual) 4 (0-12)
[2021-11-06] MEDS ORDERED: MIDAZOLAM DRIP 50 mg/50mL 50 ML IV ONE (13:24)
[2021-11-06] MEDS ORDERED: fentaNYL Drip 2500mCg/250mlNS 250 ML IV ONE (13:24)
[2021-11-06] MEDS ORDERED: ETOMIDATE (2MG/ML) 20ML VIAL IV ONE ×2 (13:24→14:45)
[2021-11-06] MEDS ORDERED: NOREPINEPHRINE 8 MG/250ML KIT 250 ML IV ONE ×2 (13:24→15:09)
[2021-11-06] MEDS ORDERED: SUCCINYLCHOLINE CHLORIDE 20 MG/ML 10ML VIAL IV ONE ×2 (13:25→14:45)
[2021-11-06] MEDS: fentaNYL Drip 2500mCg/250mlNS 250 ML IV SCH (13:36)
[2021-11-06] MEDS: MIDAZOLAM DRIP 50 mg/50mL 50 ML IV SCH (13:37)
[2021-11-06] MEDS: PROPOFOL 100 ML IV SCH (14:45)
[2021-11-06] MEDS: NOREPINEPHRINE 8 MG/250ML KIT 250 ML IV SCH (15:00)
[2021-11-06] MEDS ORDERED: WARFARIN SODIUM 1 MG TAB PO ONE (17:00)
[2021-11-06] MEDS: ATORVASTATIN 20 MG TAB PO SCH (22:00)
[2021-11-07] VITALS (73 sets, daily range): BP systolic 70–133; BP diastolic 29–68
[2021-11-07] MEDS: MIDAZOLAM DRIP 50 mg/50mL 50 ML IV SCH ×3 (00:27→15:27)
[2021-11-07] MEDS ORDERED: PHENYLEPHRINE IV 250 ML IV ONE (01:37)
[2021-11-07] MEDS ORDERED: PHENYLEPHRINE IV 250 ML IV SCH (01:45)
[2021-11-07] MEDS: NOREPINEPHRINE 8 MG/250ML KIT 250 ML IV SCH (02:03)
[2021-11-07] MEDS: PROPOFOL 100 ML IV SCH ×2 (05:00→13:29)
[2021-11-07] MEDS ORDERED: NOREPINEPHRINE BITARTRATE 32 MG in SODIUM CHL 0.9% 218 ML IV SCH (06:00)
[2021-11-07] MEDS: Ensure HIGH Protein Chocolate 8oz Bottle PO SCH ×3 (08:00→17:16)
[2021-11-07] MEDS: LEVOTHYROXINE SODIUM 100 MCG TAB PO SCH (08:07)
[2021-11-07] MEDS: PHENYLEPHRINE INJ 80 MG in SODIUM CHL 0.9% 242 ML IV SCH ×3 (08:07→23:00)
[2021-11-07] MEDS: fentaNYL Drip 2500mCg/250mlNS 250 ML IV SCH (08:35)
[2021-11-07] MEDS: PANTOPRAZOLE 40 MG TAB PO SCH (09:35)
[2021-11-07] MEDS: ASCORBIC ACID 500 MG TAB PO SCH ×2 (09:35→22:59)
[2021-11-07] MEDS: PRASUGREL HCL 10 MG TAB PO SCH ×2 (09:36→13:20)
[2021-11-07] MEDS: ZINC SULFATE 220mg CAP or TAB PO SCH (09:36)
[2021-11-07] MEDS: MULTIPLE VITAMIN TAB PO SCH (09:36)
[2021-11-07] MEDS: DexAMETHasone SOD PHOS 10MG/1ML VIAL INJ IV SCH ×2 (09:37→22:00)
[2021-11-07] MEDS: AZITHROMYCIN 500MG/ 250ML 250 ML IV SCH (09:37)
[2021-11-07] MEDS: cefTRIAXone 1GM/50ML D5W 50 ML IV SCH (09:37)
[2021-11-07] MEDS: AMIODARONE HCL 200 MG TAB PO SCH (10:00)
[2021-11-07 15:44] LABS: Mean Corpuscular Volume 93.2 fL (80.0-100.0)
[2021-11-07 15:45] LABS: Hematocrit 44.7 % (41.0-53.0); Hemoglobin 14.3 g/dL (13.5-17.5); Mean Corpuscular Hemoglobin 29.9 pg (28.0-32.0); Mean Corpuscular Hgb Conc. 32.1 g/dL (32.0-36.0); Red Cell Distribution Width 15.7 % (11.8-14.3)
[2021-11-07 16:01] LABS: White Blood Cell 31.8 10^3/uL (4.4-10.8)
[2021-11-07 16:03] LABS: Albumin 2.5 g/dL (3.4-5.0); Calcium 8.4 mg/dL (8.5-10.1)
[2021-11-07 16:04] LABS: Band Neutrophils % (manual) 0; Basophils % (manual) 0 (0.0-2.0); Blast Cells 0; Eosinophils % (manual) 0 (0-7); Myelocytes % 0; Promyelocytes % 0; Reactive Lymphocytes 0
[2021-11-07 16:06] LABS: BUN/Creatinine Ratio 30.1; Bilirubin, Total 0.2 mg/dL (0.2-1.0); Total Protein 6.2 g/dL (6.4-8.2)
[2021-11-07 16:20] LABS: INR 2.89 (0.9-1.15); Partial Thromboplastin Time 35.8 sec (23.6-33.0)
[2021-11-07 16:21] LABS: Potassium 7.2 mmol/L (3.5-5.1)
[2021-11-07] MEDS ORDERED: FUROSEMIDE 40 MG/4 ML VIAL ONE (16:30)
[2021-11-07] MEDS ORDERED: SODIUM ZIRCONIUM CYCL 10 GM PAK ONE (16:30)
[2021-11-07] MEDS ORDERED: FUROSEMIDE 40 MG/4 ML VIAL IV ONE (16:30)
[2021-11-07] MEDS ORDERED: SODIUM ZIRCONIUM CYCL 10 GM PAK PO ONE (16:30)
[2021-11-07] MEDS: VASOPRESSIN 50 UNITS in D5W 5% 247.5 ML IV SCH (16:33)
[2021-11-07 17:16] LABS: Lymphocytes % (manual) 1 (10.0-50.0); Metamyelocytes % 1; Monocytes % (manual) 9 (0-12)
[2021-11-07] MEDS ORDERED: ATROPINE SULFATE 1 MG/1 ML VIAL ONE (18:57)
[2021-11-07] MEDS ORDERED: PIPERACILLIN-TAZOB 3.375GM 100 ML IV SCH (20:00)
[2021-11-07] MEDS: ATORVASTATIN 20 MG TAB PO SCH (22:58)
[2021-11-08] VITALS (44 sets, daily range): BP systolic 92–121; BP diastolic 30–57
[2021-11-08] MEDS: LEVOTHYROXINE SODIUM 100 MCG TAB PO SCH (07:00)
[2021-11-08] MEDS: Ensure HIGH Protein Chocolate 8oz Bottle PO SCH (08:00)
[2021-11-08 08:33] LABS: Hematocrit 44.8 % (41.0-53.0); Hemoglobin 14.1 g/dL (13.5-17.5); Mean Corpuscular Hemoglobin 29.9 pg (28.0-32.0); Mean Corpuscular Hgb Conc. 31.6 g/dL (32.0-36.0); Mean Corpuscular Volume 94.8 fL (80.0-100.0); Red Blood Cells 4.73 10^6/uL (4.5-5.90); Red Cell Distribution Width 16.1 % (11.8-14.3); White Blood Cell 29.1 10^3/uL (4.4-10.8)
[2021-11-08 08:45] LABS: Basophils % (manual) 0 (0.0-2.0); Eosinophils % (manual) 0 (0-7); Monocytes % (manual) 0 (0-12)
[2021-11-08 08:46] LABS: Blast Cells 0; Metamyelocytes % 0; Myelocytes % 0; Promyelocytes % 0; Reactive Lymphocytes 0
[2021-11-08 09:36] LABS: Band Neutrophils % (manual) 1; Lymphocytes % (manual) 6 (10.0-50.0)
[2021-11-08] MEDS: MULTIPLE VITAMIN TAB PO SCH (10:00)
[2021-11-08] MEDS: ZINC SULFATE 220mg CAP or TAB PO SCH (10:00)
[2021-11-08] MEDS: DexAMETHasone SOD PHOS 10MG/1ML VIAL INJ IV SCH (10:00)
[2021-11-08] MEDS: AMIODARONE HCL 200 MG TAB PO SCH (10:00)
[2021-11-08] MEDS: ASCORBIC ACID 500 MG TAB PO SCH (10:00)
[2021-11-08] MEDS: PRASUGREL HCL 10 MG TAB PO SCH (10:00)
[2021-11-08] MEDS: PANTOPRAZOLE 40 MG TAB PO SCH (10:00)
[2021-11-08] MEDS: VASOPRESSIN 50 UNITS in D5W 5% 247.5 ML IV SCH (10:03)
[2021-11-08] MEDS ORDERED: MORPHINE SULFATE INJECTION 2 MG/ML SYRG IV PRN (11:00)
[2021-11-08] MEDS ORDERED: MORPHINE SULFATE INJECTION 2 MG/ML SYRG ONE (11:07)
== END 2021-11-08 18:00 | DRG 208 ==
LOC: EDBD 18:43 → ER 18:45 → TELE 21:50 → TELE-WESTW 10-27 21:35 → DOU IN ICU 11-06 17:24
PROVIDERS: ADMIT Nurse Practitioner; ATTEND Internal Medicine Cardiovascular Disease
PROC: XW033E5 Introduction of Remdesivir Anti-infective into Peripheral Vein, Percutaneous Approach, New Technology Group 5 (ICD-10-PCS; 2021-10-26)
PROC: 5A0945A Assistance with Respiratory Ventilation, 24-96 Consecutive Hours, High Flow/Velocity Cannula (ICD-10-PCS; 2021-10-26)
PROC: 5A0935A Assistance with Respiratory Ventilation, Less than 24 Consecutive Hours, High Flow/Velocity Cannula (ICD-10-PCS; 2021-10-28)
PROC: 5A0935A Assistance with Respiratory Ventilation, Less than 24 Consecutive Hours, High Flow/Velocity Cannula (ICD-10-PCS; 2021-10-29)
PROC: 5A0935A Assistance with Respiratory Ventilation, Less than 24 Consecutive Hours, High Flow/Velocity Cannula (ICD-10-PCS; 2021-10-30)
PROC: 05HB33Z Insertion of Infusion Device into Right Basilic Vein, Percutaneous Approach (ICD-10-PCS; 2021-10-31)
PROC: B54MZZA Ultrasonography of Right Upper Extremity Veins, Guidance (ICD-10-PCS; 2021-10-31)
PROC: 5A0935A Assistance with Respiratory Ventilation, Less than 24 Consecutive Hours, High Flow/Velocity Cannula (ICD-10-PCS; 2021-10-31)
PROC: 5A0935A Assistance with Respiratory Ventilation, Less than 24 Consecutive Hours, High Flow/Velocity Cannula (ICD-10-PCS; 2021-11-01)
PROC: 5A0935A Assistance with Respiratory Ventilation, Less than 24 Consecutive Hours, High Flow/Velocity Cannula (ICD-10-PCS; 2021-11-02)
PROC: 5A09457 Assistance with Respiratory Ventilation, 24-96 Consecutive Hours, Continuous Positive Airway Pressure (ICD-10-PCS; 2021-11-04)
PROC: 5A0935A Assistance with Respiratory Ventilation, Less than 24 Consecutive Hours, High Flow/Velocity Cannula (ICD-10-PCS; 2021-11-04)
PROC: 5A0935A Assistance with Respiratory Ventilation, Less than 24 Consecutive Hours, High Flow/Velocity Cannula (ICD-10-PCS; 2021-11-04)
PROC: 5A1945Z Respiratory Ventilation, 24-96 Consecutive Hours (ICD-10-PCS; principal; 2021-11-06)
PROC: 0BH17EZ Insertion of Endotracheal Airway into Trachea, Via Natural or Artificial Opening (ICD-10-PCS; 2021-11-06)
DX: U07.1 COVID-19 (principal); J12.82 Pneumonia due to coronavirus disease 2019; I50.23 Acute on chronic systolic (congestive) heart failure; E43 Unspecified severe protein-calorie malnutrition; J96.90 Respiratory failure, unspecified, unspecified whether with hypoxia or hypercapnia; E78.5 Hyperlipidemia, unspecified; I11.0 Hypertensive heart disease with heart failure; I25.10 Atherosclerotic heart disease of native coronary artery without angina pectoris; F41.9 Anxiety disorder, unspecified; D72.829 Elevated white blood cell count, unspecified; I25.5 Ischemic cardiomyopathy; Z66 Do not resuscitate; I46.9 Cardiac arrest, cause unspecified; I25.2 Old myocardial infarction; Z80.3 Family history of malignant neoplasm of breast; Z82.0 Family history of epilepsy and other diseases of the nervous system; Z82.49 Family history of ischemic heart disease and other diseases of the circulatory system; Z86.73 Personal history of transient ischemic attack (TIA), and cerebral infarction without residual deficits; Z95.1 Presence of aortocoronary bypass graft; Z98.61 Coronary angioplasty status; Z95.810 Presence of automatic (implantable) cardiac defibrillator; Z23 Encounter for immunization
CPT/HCPCS: 31500; 36415; 36600; 71045; 80048; 80053; 81001; 82040; 82565; 82728; 82805; 82962; 83605; 83880; 84484; 85007; 85025; 85027; 85379; 85610; 85730; 87040; 87070; 87081; 87205; 87426; 93005; 94002; 94003; 94660; 96365; 96366; 96367; 96375; 96376; 97110; 97163; 97530; 99291; G0378; J0330; J0461; J0696; J1100; J2250; J2543; J2704; J7060